=== PATIENT | male | born 1940 | race Caucasian/White ===

== ENCOUNTER 2020-04-04 19:33 | Inpatient (IN) | payer MEDICARE, OTHER ==
[~2020-04-04] VITALS: Ht 185.4 cm; Wt 67.0 kg
[~2020-04-04 19:33] MED LIST: BUDE10.2 IH; CETI10TA16 PO; DILT240C32 PO; HYDR-2761 PO; LEVO250T25 PO; LISI-130 PO; METR500T PO; PANT40TA77 PO; SERT100T8 PO; SUCR1TAB PO; TRAZ-118 PO
[2020-04-04 20:21] LABS: BASO # 0.1 x10^3/uL (0.0-0.2); BASO % 1 % (0-3); EOS % 0 % (0-3); HEMATOCRIT 38.2 % (39.0-53.0); HEMOGLOBIN 13.4 g/dL (13.0-17.5); LYMPH # 1.1 x10^3/uL (1.0-4.8); LYMPH % 11 % (24-48); MEAN CORPUSCULAR HEMOGLOBIN 31 pg (25-35); MEAN CORPUSCULAR HGB CONC 35 g/dL (31-37); MEAN CORPUSCULAR VOLUME 89 fL (79-100); MONO # 0.4 x10^3/uL (0.0-1.1); MONO % 4 % (0-9); NEUT # 8.5 x10^3/uL (1.8-7.7); NEUT % 85 % (31-73); PLATELET COUNT 212 x10^3/uL (140-400); RED BLOOD COUNT 4.28 x10^6/uL (4.30-5.70); RED CELL DISTRIBUTION WIDTH 16.2 % (11.5-14.5); WHITE BLOOD COUNT 10.1 x10^3/uL (4.0-11.0)
[2020-04-04 20:28] LABS: PROTHROMBIN TIME PATIENT 13.5 SEC (11.7-14.0)
[2020-04-04 20:29] LABS: CALCIUM 8.8 mg/dL (8.5-10.1); CREATININE 1.3 mg/dL (0.7-1.3); GFR 53.3; POTASSIUM 3.7 mmol/L (3.5-5.1)
[2020-04-04 20:35] LABS: ALBUMIN 3.5 g/dL (3.4-5.0); TOTAL BILIRUBIN 0.7 mg/dL (0.2-1.0); TOTAL PROTEIN 6.9 g/dL (6.4-8.2)
[2020-04-04] MEDS ORDERED: IOHEXOL 240 MG/ML 50ML VIAL. PO ONE (21:30)
[2020-04-04] MEDS ORDERED: CONTRAST GIVEN. MC PRN (21:30)
[2020-04-04] MEDS ORDERED: IOHEXOL 300 MG/ML 100ML VIAL. IV ONE (21:30)
--- NOTE | 2020-04-04 23:15 | RAD ---
Study: CT abdomen/pelvis with intravenous contrast Indication: Abdominal pain. Rectal bleeding. Comparison: 05/07/2016 Technique: Helical CT imaging performed of the abdomen and pelvis after the intravenous administration of 60 cc Omnipaque 300 contrast. Sagittal and coronal reformats were obtained. One or more of the following individualized dose reduction techniques were utilized for this examination: 1. Automated exposure control 2. Adjustment of the mA and/or kV according to patient size 3. Use of iterative reconstruction technique. Findings: Chest: Emphysema. Calcific coronary artery disease. Liver: A few subcentimeter hypoattenuating foci were not well seen on the comparison but the prior was performed without intravenous contrast. There is also a curvilinear low-attenuation focus at the hepatic dome. These findings are most likely benign in the absence of a known malignancy. Gallbladder/Biliary Tree: Surgically absent. Intrahepatic ductal prominence. The common bile duct caliber is within normal limits given absence of the gallbladder and tapers normally at the pancreatic head. Pancreas: No discrete mass or surrounding inflammatory changes. Spleen: Similar prominence of the spleen. Adrenal Glands: Hyperplastic/nodular configuration of the adrenal glands but unchanged. Kidneys/Ureters/Bladder: Several cystic foci bilaterally. No complex cyst or mass appreciated on this single phase study. The ureters are not well visualized. Poorly evaluated bladder due to streak artifact from a hip arthroplasty. Reproductive Organs: Similar prominence of the prostate. Colon: Portions of the distal colon are not well evaluated due to streak artifact. Diverticulosis mainly involving the sigmoid without convincing evidence for diverticulitis. There is wall thickening of the descending colon through the splenic flexure such as seen involving the descending colon on image 32 series 4. More proximally, gas and stool distention of the colon without wall thickening. Appendix: Not well visualized. Small Bowel: Individual loops of small bowel are not well evaluated due to close apposition and the lack of oral contrast. Segments are distended but there is no transition to collapsed to suggest obstruction. Stomach: No acute abnormality. Vasculature: Extensive calcified and noncalcified atheromatous plaque. No aneurysmal dilatation. The central portal veins and superior mesenteric veins are patent. Limited assessment for stenosis of the aortic branch vessel origins. Extensive iliofemoral system plaque presumably with some presumed regions of stenosis noting that the extent of plaque is similar to the 2016. Lymph Nodes: Within normal limits. Peritoneum and Body Wall: No large volume free fluid. No pneumoperitoneum. 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 No suspicious features and the size is only minimally larger from 2016. Bones: Osteopenia. No acute or aggressive osseous process. Total left hip arthroplasty construct is unremarkable. Grade 1 anterolisthesis of L5 on S1 in the setting of chronic bilateral pars defects. Miscellaneous: None. Impression: 1. Distal colonic diverticulosis without definitive findings of diverticulitis. There is mild wall thickening of the descending colon through the splenic flexure. It is possible that this represents a mild colitis but there are no overt surrounding inflammatory changes to confirm. No bowel obstruction. If there is ongoing rectal bleeding, a tagged red blood cell scan could be considered. 2. Several additional chronic findings as detailed in the body the report. Electronically signed by: MORENITA HUTCHINSON MD (04/04/2020 11:11 PM) [id number]
[2020-04-04 23:35] VITALS: BP 138/42
[2020-04-04] MEDS ORDERED: FLUT16SP NAS (23:55)
[2020-04-04] MEDS ORDERED: OMEP40CA45 PO (23:55)
[2020-04-04] MEDS ORDERED: LISI1TAB37 PO (23:57)
[2020-04-04] MEDS ORDERED: GABA100C6 PO (23:58)
[2020-04-05] MEDS: traZODone 100 MG TABLET. PO SCH ×2 (00:19→20:49)
--- NOTE | 2020-04-05 02:21 | PHYS DOC ---
Past Medical History Past Medical History: COPD, Hypertension Past Surgical History: Cholecystectomy, Hip Replacement Additional Past Surgical Histo: hernia repair x 2 Smoking Status: Current Every Day Smoker Alcohol Use: None Drug Use: None General Adult EDM: Chief Complaint: BLOODY STOOL HPI: HPI: Patient is a 79-year-old male who presents to the emergency room complaining of GI bleed. Patient states that yesterday he started feeling queasy and then had an episode of vomiting that was a mixture of food and bright red blood. Shortly after he had an episode of diarrhea that was mixed stool and bright red blood. He has since had 2 other bowel movements that have also included bright red blood. He was seen at [facility] yesterday where they recommended that he be admitted for evaluation. He declined admission at that time but saw his primary care doctor who sent him here to be admitted to be evaluated by a GI specialist. He has chronic shortness of breath that is unchanged. He denies any weakness. He denies any abdominal pain. Review of Systems: Review of Systems: General: Denies fever, chills, sweats, fatigue Eyes: Denies drainage, blurred vision, eye redness HENT: Denies rhinorrhea, sore throat, earache Respiratory: Denies cough, shortness of breath, wheezing Cardiac: Denies edema, palpitations, chest pain GI: Denies abdominal pain, Nausea, vomiting MSK: Denies back pain, neck pain Skin: Denies rash, jaundice Neuro: Denies headache, dizziness Psychiatric: Denies SI/HI Heart Score: Risk Factors: Risk Factors: DM, Current or recent (<one month) smoker, HTN, HLP, family history of CAD, obesity. Risk Scores: Score 0 - 3: 2.5% MACE over next 6 weeks - Discharge Home Score 4 - 6: 20.3% MACE over next 6 weeks - Admit for Clinical Observation Score 7 - 10: 72.7% MACE over next 6 weeks - Early Invasive Strategies Current Medications: Current Medications Medications (Trade) Dose Ordered Sig/Olman Start Time Stop Time Status Last Admin Dose Admin Info (CONTRAST GIVEN -- Rx MONITORING) 1 each PRN DAILY PRN 04/04/20 21:30 04/06/20 21:29 Iohexol (Omnipaque 240 Mg/ml) 50 ml 1X ONCE 04/04/20 21:30 04/04/20 21:31 DC Iohexol (Omnipaque 300 Mg/ml) 60 ml 1X ONCE 04/04/20 21:30 04/04/20 21:31 DC 04/04/20 22:24 60 ML Allergies: Allergies: Allergies Coded Allergies Type Severity Reaction Last Updated Verified No Known Drug Allergies 05/13/16 No Physical Exam: PE: General: Awake, alert, NAD. Well Nourished, well hydrated. Cooperative HEENT: Atraumatic, EOMI, PERRL, airway patent, moist oral mucosa Neck: Supple, trachea midline Respiratory: CTA bilaterally, normal effort, no wheezing/crackles CV: RRR, no murmur, cap refill <2 GI: Soft, nondistended, nontender, no masses MSK: No obvious deformities Skin: Warm, dry, intact Neuro: A&O x3, speech NL, sensory and motor grossly intact, no focal deficits Psych: Normal affect, normal mood, not suicidal or homicidal Current Patient Data: Labs: Laboratory Tests Test 04/04/20 20:00 White Blood Count 10.1 x10^3/uL (4.0-11.0) Red Blood Count 4.28 x10^6/uL (4.30-5.70) L Hemoglobin 13.4 g/dL (13.0-17.5) Hematocrit 38.2 % (39.0-53.0) L Mean Corpuscular Volume 89 fL (79-100) Mean Corpuscular Hemoglobin 31 pg (25-35) Mean Corpuscular Hemoglobin Concent 35 g/dL (31-37) Red Cell Distribution Width 16.2 % (11.5-14.5) H Platelet Count 212 x10^3/uL (140-400) Neutrophils (%) (Auto) 85 % (31-73) H Lymphocytes (%) (Auto) 11 % (24-48) L Monocytes (%) (Auto) 4 % (0-9) Eosinophils (%) (Auto) 0 % (0-3) Basophils (%) (Auto) 1 % (0-3) Neutrophils # (Auto) 8.5 x10^3/uL (1.8-7.7) H Lymphocytes # (Auto) 1.1 x10^3/uL (1.0-4.8) Monocytes # (Auto) 0.4 x10^3/uL (0.0-1.1) Eosinophils # (Auto) 0.0 x10^3/uL (0.0-0.7) Basophils # (Auto) 0.1 x10^3/uL (0.0-0.2) Prothrombin Time 13.5 SEC (11.7-14.0) Prothrombin Time INR 1.1 (0.8-1.1) Activated Partial Thromboplast Time 35 SEC (24-38) Sodium Level 139 mmol/L (136-145) Potassium Level 3.7 mmol/L (3.5-5.1) Chloride Level 105 mmol/L (98-107) Carbon Dioxide Level 28 mmol/L (21-32) Anion Gap 6 (6-14) Blood Urea Nitrogen 28 mg/dL (8-26) H Creatinine 1.3 mg/dL (0.7-1.3) Estimated GFR (Cockcroft-Gault) 53.3 BUN/Creatinine Ratio 22 (6-20) H Glucose Level 104 mg/dL (70-99) H Calcium Level 8.8 mg/dL (8.5-10.1) Total Bilirubin 0.7 mg/dL (0.2-1.0) Aspartate Amino Transferase (AST) 22 U/L (15-37) Alanine Aminotransferase (ALT) 18 U/L (16-63) Alkaline Phosphatase 76 U/L (46-116) Total Protein 6.9 g/dL (6.4-8.2) Albumin 3.5 g/dL (3.4-5.0) Albumin/Globulin Ratio 1.0 (1.0-1.7) Laboratory Tests 04/04/20 20:00 Laboratory Tests 04/04/20 20:00 Vital Signs: Vital Signs Date Time Temp Pulse Resp B/P (MAP) Pulse Ox O2 Delivery O2 Flow Rate FiO2 04/05/20 00:01 Room Air 04/04/20 23:35 97.1 56 21 138/42 (74) 94 97.1 EKG: EKG: [] Radiology/Procedures: Radiology/Procedures: [] Course & Med Decision Making: Course & Med Decision Making Pertinent Labs and Imaging studies reviewed. (See chart for details) Patient is 71-year-old male presents to the emergency room with hematemesis and hematochezia. Patient is stable at this time. He is not on any NSAIDs, aspirin. He does not drink alcohol. It is unclear at this time the cause of this bleed could be. Will admit him to the hospital for further evaluation of his GI bleed per the request of his primary care physician. Sania Disclaimer: Sania Disclaimer: This electronic medical record was generated, in whole or in part, using a voice recognition dictation system. Departure Departure Impression: Primary Impression: GI bleed Disposition: ADMITTED INPATIENT Condition: STABLE Referrals: MIMI MONSALVE MD (PCP) Justicifation of Admission Dx: Justifications for Admission: Justification of Admission Dx: Yes RADHA MEZA MD Apr 05, 2020 02:21
[2020-04-05 03:20] VITALS: BP 127/45
[2020-04-05 07:00] VITALS: BP 134/66
[2020-04-05] MEDS ORDERED: C.DIFF MED SCREEN BY RX. MC ONE (09:00)
[2020-04-05 11:16] VITALS: BP 132/51
--- NOTE | 2020-04-05 14:00 | PDOC2 ---
GI CONSULT Reason For Consult: hematemesis and rectal bleed HPI: HPI: 79-year-old male who presents to the emergency room complaining of GI bleed. Patient states that yesterday he started feeling queasy and then had an episode of vomiting that was a mixture of food and bright red blood. Shortly after he had an episode of diarrhea that was mixed stool and bright red blood. He has since had 2 other bowel movements that have also included bright red blood. He was seen at [facility] yesterday where they recommended that he be admitted for evaluation. He declined admission at that time but saw his primary care doctor who sent him here to be admitted to be evaluated by a GI specialist. He has chronic shortness of breath that is unchanged. He denies any weakness. He denies any abdominal pain. Hgb was 13.[address] A/P with Distal colonic diverticulosis without definitive findings of diverticulitis. There is mild wall thickening of the descending colon through the splenic flexure. It is possible that this represents a mild colitis but there are no overt surrounding inflammatory changes to confirm. No bowel obstruction. If there is ongoing rectal bleeding, a tagged red blood cell scan could be considered. Since he had hematemesis, he ahs eaten cereal, chips and a sandwich He reprots prior epsiodes of rectal bleeding and s had a negative FOBT with Dr Muñoz this year. He was placed on OMeproazole by Dr Muñoz for blood in his stool. He dnies NSAIDs and says thaty his last Tyelnol was 6 months ago. he has not had EtOH in 15 years PMH: PMH: Past Medical History Past Medical History: COPD, Hypertension Past Surgical History: Cholecystectomy, Hip Replacement, bile leak after álvaro s/pERCP with stent 04/2016 Additional Past Surgical Histo: hernia repair x 2 Smoking Status: Current Every Day Smoker Alcohol Use: None Drug Use: None FMH: neg CRC Meds: Symbicort Fluticasone Gabapentin Lisinopril/HCTZ O[place] 40 Sertraline FH: Family History: No pertinent hx Social History: Smoke: 1 pack per day ALCOHOL: none Drugs: None ROS: Review of Systems: Review of Systems: General: Denies fever, chills, sweats, fatigue Eyes: Denies drainage, blurred vision, eye redness HENT: Denies rhinorrhea, sore throat, earache Respiratory: Denies cough, shortness of breath, wheezing Cardiac: Denies edema, palpitations, chest pain GI: Denies abdominal pain, Nausea, vomiting MSK: Denies back pain, neck pain Skin: Denies rash, jaundice Neuro: Denies headache, dizziness Psychiatric: Denies SI/HI VItals: Vitals: Vital Signs Date Time Temp Pulse Resp B/P (MAP) Pulse Ox O2 Delivery O2 Flow Rate FiO2 04/05/20 11:16 97.8 55 18 132/51 (78) 90 Room Air 97.8 Labs: Labs: Laboratory Tests Test 04/04/20 20:00 White Blood Count 10.1 x10^3/uL (4.0-11.0) Red Blood Count 4.28 x10^6/uL (4.30-5.70) Hemoglobin 13.4 g/dL (13.0-17.5) Hematocrit 38.2 % (39.0-53.0) Mean Corpuscular Volume 89 fL (79-100) Mean Corpuscular Hemoglobin 31 pg (25-35) Mean Corpuscular Hemoglobin Concent 35 g/dL (31-37) Red Cell Distribution Width 16.2 % (11.5-14.5) Platelet Count 212 x10^3/uL (140-400) Neutrophils (%) (Auto) 85 % (31-73) Lymphocytes (%) (Auto) 11 % (24-48) Monocytes (%) (Auto) 4 % (0-9) Eosinophils (%) (Auto) 0 % (0-3) Basophils (%) (Auto) 1 % (0-3) Neutrophils # (Auto) 8.5 x10^3/uL (1.8-7.7) Lymphocytes # (Auto) 1.1 x10^3/uL (1.0-4.8) Monocytes # (Auto) 0.4 x10^3/uL (0.0-1.1) Eosinophils # (Auto) 0.0 x10^3/uL (0.0-0.7) Basophils # (Auto) 0.1 x10^3/uL (0.0-0.2) Prothrombin Time 13.5 SEC (11.7-14.0) Prothromb Time International Ratio 1.1 (0.8-1.1) Activated Partial Thromboplast Time 35 SEC (24-38) Sodium Level 139 mmol/L (136-145) Potassium Level 3.7 mmol/L (3.5-5.1) Chloride Level 105 mmol/L (98-107) Carbon Dioxide Level 28 mmol/L (21-32) Anion Gap 6 (6-14) Blood Urea Nitrogen 28 mg/dL (8-26) Creatinine 1.3 mg/dL (0.7-1.3) Estimated GFR (Cockcroft-Gault) 53.3 BUN/Creatinine Ratio 22 (6-20) Glucose Level 104 mg/dL (70-99) Calcium Level 8.8 mg/dL (8.5-10.1) Total Bilirubin 0.7 mg/dL (0.2-1.0) Aspartate Amino Transf (AST/SGOT) 22 U/L (15-37) Alanine Aminotransferase (ALT/SGPT) 18 U/L (16-63) Alkaline Phosphatase 76 U/L (46-116) Total Protein 6.9 g/dL (6.4-8.2) Albumin 3.5 g/dL (3.4-5.0) Albumin/Globulin Ratio 1.0 (1.0-1.7) Imaging: Imaging: Comparison: 05/07/2016 Technique: Helical CT imaging performed of the abdomen and pelvis after the intravenous administration of 60 cc Omnipaque 300 contrast. Sagittal and coronal reformats were obtained. One or more of the following individualized dose reduction techniques were utilized for this examination: 1. Automated exposure control 2. Adjustment of the mA and/or kV according to patient size 3. Use of iterative reconstruction technique. Findings: Chest: Emphysema. Calcific coronary artery disease. Liver: A few subcentimeter hypoattenuating foci were not well seen on the comparison but the prior was performed without intravenous contrast. There is also a curvilinear low-attenuation focus at the hepatic dome. These findings are most likely benign in the absence of a known malignancy. Gallbladder/Biliary Tree: Surgically absent. Intrahepatic ductal prominence. The common bile duct caliber is within normal limits given absence of the gallbladder and tapers normally at the pancreatic head. Pancreas: No discrete mass or surrounding inflammatory changes. Spleen: Similar prominence of the spleen. Adrenal Glands: Hyperplastic/nodular configuration of the adrenal glands but unchanged. Kidneys/Ureters/Bladder: Several cystic foci bilaterally. No complex cyst or mass appreciated on this single phase study. The ureters are not well visualized. Poorly evaluated bladder due to streak artifact from a hip arthroplasty. Reproductive Organs: Similar prominence of the prostate. Colon: Portions of the distal colon are not well evaluated due to streak artifact. Diverticulosis mainly involving the sigmoid without convincing evidence for diverticulitis. There is wall thickening of the descending colon through the splenic flexure such as seen involving the descending colon on image 32 series 4. More proximally, gas and stool distention of the colon without wall thickening. Appendix: Not well visualized. Small Bowel: Individual loops of small bowel are not well evaluated due to close apposition and the lack of oral contrast. Segments are distended but there is no transition to collapsed to suggest obstruction. Stomach: No acute abnormality. Vasculature: Extensive calcified and noncalcified atheromatous plaque. No aneurysmal dilatation. The central portal veins and superior mesenteric veins are patent. Limited assessment for stenosis of the aortic branch vessel origins. Extensive iliofemoral system plaque presumably with some presumed regions of stenosis noting that the extent of plaque is similar to the 2016. Lymph Nodes: Within normal limits. Peritoneum and Body Wall: No large volume free fluid. No pneumoperitoneum. 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 No suspicious features and the size is only minimally larger from 2016. Bones: Osteopenia. No acute or aggressive osseous process. Total left hip arthroplasty construct is unremarkable. Grade 1 anterolisthesis of L5 on S1 in the setting of chronic bilateral pars defects. Miscellaneous: None. Impression: 1. Distal colonic diverticulosis without definitive findings of diverticulitis. There is mild wall thickening of the descending colon through the splenic flexure. It is possible that this represents a mild colitis but there are no overt surrounding inflammatory changes to confirm. No bowel obstruction. If there is ongoing rectal bleeding, a tagged red blood cell scan could be considered. 2. Several additional chronic findings as detailed in the body the report. Electronically signed by: MORENITA HUTCHINSON MD (04/04/2020 11:11 PM) [id number] PE: Physical Exam: PE: General: Awake, alert, NAD. Well Nourished, well hydrated. Cooperative HEENT: Atraumatic, EOMI, PERRL, airway patent, moist oral mucosa Neck: Supple, trachea midline Respiratory: CTA bilaterally, normal effort, no wheezing/crackles CV: RRR, no murmur, cap refill <2 GI: Soft, nondistended, nontender, no masses MSK: No obvious deformities Skin: Warm, dry, intact Neuro: A&O x3, speech NL, sensory and motor grossly intact, no focal deficits Psych: Normal affect, normal mood, not suicidal or homicidal A/P: A/P: A) 1)Hematemesis 2) rectal bleed 3) Abnormal CT P) 1) Start PPI 2) Start CLD 3) Monitor Hgb 4) Favor EGD/Colon. If Hgb stable, can be done as outpatient. If Hgb drops, favor endoscopy during the week SAMANTHA NORWOOD MD Apr 05, 2020 14:00
--- NOTE | 2020-04-05 14:13 | PDOC1 ---
History and Physical Date of Admission Date of Admission 04/05/2020 Identification/Chief Complaint Chief Complaint I vomited blood and had blood in my stools Source Source: Chart review, Patient History of Present Illness History of Present Illness Patient is a 79-year-old gentleman with past medical history of COPD and hypertension who was in his usual state of health until approximately 2 days prior to his admission when apparently he resented a sensation of nausea over the epigastrium and subsequently ended up having several emetic episodes with a mixture of blood and gastric content that he describes as spaghetti sauce with hamburger meat. The patient also presented bright red blood per rectum and he describes the stool as quite runny. Patient denies any recent history of excessive alcohol intake no dietary transgressions and no excess NSAID use. Patient denies shortness of breath no palpitations no shortness of breath he denies loss of consciousness but during the emetic episodes and after having the bloody bowel movements patient felt lightheaded. He did not lose consciousness and he did not have abdominal pain associated with the rectal bleeding. Patient has not lost weight recently he does not remember when the last time he had colo noscopy was due to his history of COPD the only other complaint has been chronic cough and shortness of breath but this have not change in the usual pattern. Patient apparently was evaluated at [facility] and was presented with the option to be admitted to the hospital but he declined at that time. He consulted his primary care physician who advised him to come to the emergency department and be admitted for evaluation by GI. At the time of my evaluation patient is in no acute distress no new complaints have been offered by the patient he does refer feeling hungry plan of care has been explained in detail and I have answered and addressed all his concerns to the best of my abilities Past Medical History Cardiovascular: HTN Pulmonary: COPD Past Surgical History Past Surgical History: Cholecystectomy Family History Family History: No Significant, Hypertension Social History Smoke: 1 pack per day ALCOHOL: none Drugs: None Current Medications Current Medications Current Medications Medications (Trade) Dose Ordered Sig/Olman Start Time Stop Time Status Last Admin Dose Admin Info (CONTRAST GIVEN -- Rx MONITORING) 1 each PRN DAILY PRN 04/04/20 21:30 04/06/20 21:29 Iohexol (Omnipaque 240 Mg/ml) 50 ml 1X ONCE 04/04/20 21:30 04/04/20 21:31 DC Iohexol (Omnipaque 300 Mg/ml) 60 ml 1X ONCE 04/04/20 21:30 04/04/20 21:31 DC 04/04/20 22:24 60 ML Pantoprazole Sodium (Protonix) 40 mg DAILYAC 04/05/20 16:30 Pharmacy Consult ([facility] Med Screen By Rx) 1 each 1X ONCE 04/05/20 09:00 04/05/20 09:01 DC 04/05/20 09:00 1 EACH Trazodone HCl (Desyrel) 100 mg QHS 04/05/20 00:15 04/05/20 00:19 100 MG Allergies Allergies Allergies Coded Allergies Type Severity Reaction Last Updated Verified No Known Drug Allergies 05/13/16 No ROS Review of System CONSTITUTIONAL: No fever or chills EYES: No recent changes SKIN: No rash or itching CARDIOVASCULAR: No chest pain, syncope, palpitations, or edema RESPIRATORY: No SOB or cough GASTROINTESTINAL: No nausea, vomiting or abdominal pain NEUROLOGICAL: No headaches or weakness ENDOCRINE: No cold or heat intolerance GENITOURINARY: No urgency or frequency of urination MUSCULOSKELETAL: No back pain or joint pain LYMPHATICS: No enlarged lymph nodes PSYCHIATRIC: No anxiety or depression Physical Exam Physical Exam GEN.: No apparent distress. Alert and oriented. HEENT: Head is normocephalic, atraumatic NECK: Supple. LUNGS: Clear to auscultation. HEART: RRR, S1, S2 present. Peripheral pulses intact ABDOMEN: Soft, nontender. Positive bowel sounds. EXTREMITIES: Without any cyanosis. NEUROLOGIC: Normal speech, normal tone PSYCHIATRIC: Normal affect, normal mood. SKIN: No ulcerations Vitals Vitals Vital Signs Date Time Temp Pulse Resp B/P (MAP) Pulse Ox O2 Delivery O2 Flow Rate FiO2 04/05/20 11:16 97.8 55 18 132/51 (78) 90 Room Air 97.8 Labs Labs Laboratory Tests Test 04/04/20 20:00 White Blood Count 10.1 x10^3/uL (4.0-11.0) Red Blood Count 4.28 x10^6/uL (4.30-5.70) Hemoglobin 13.4 g/dL (13.0-17.5) Hematocrit 38.2 % (39.0-53.0) Mean Corpuscular Volume 89 fL (79-100) Mean Corpuscular Hemoglobin 31 pg (25-35) Mean Corpuscular Hemoglobin Concent 35 g/dL (31-37) Red Cell Distribution Width 16.2 % (11.5-14.5) Platelet Count 212 x10^3/uL (140-400) Neutrophils (%) (Auto) 85 % (31-73) Lymphocytes (%) (Auto) 11 % (24-48) Monocytes (%) (Auto) 4 % (0-9) Eosinophils (%) (Auto) 0 % (0-3) Basophils (%) (Auto) 1 % (0-3) Neutrophils # (Auto) 8.5 x10^3/uL (1.8-7.7) Lymphocytes # (Auto) 1.1 x10^3/uL (1.0-4.8) Monocytes # (Auto) 0.4 x10^3/uL (0.0-1.1) Eosinophils # (Auto) 0.0 x10^3/uL (0.0-0.7) Basophils # (Auto) 0.1 x10^3/uL (0.0-0.2) Prothrombin Time 13.5 SEC (11.7-14.0) Prothromb Time International Ratio 1.1 (0.8-1.1) Activated Partial Thromboplast Time 35 SEC (24-38) Sodium Level 139 mmol/L (136-145) Potassium Level 3.7 mmol/L (3.5-5.1) Chloride Level 105 mmol/L (98-107) Carbon Dioxide Level 28 mmol/L (21-32) Anion Gap 6 (6-14) Blood Urea Nitrogen 28 mg/dL (8-26) Creatinine 1.3 mg/dL (0.7-1.3) Estimated GFR (Cockcroft-Gault) 53.3 BUN/Creatinine Ratio 22 (6-20) Glucose Level 104 mg/dL (70-99) Calcium Level 8.8 mg/dL (8.5-10.1) Total Bilirubin 0.7 mg/dL (0.2-1.0) Aspartate Amino Transf (AST/SGOT) 22 U/L (15-37) Alanine Aminotransferase (ALT/SGPT) 18 U/L (16-63) Alkaline Phosphatase 76 U/L (46-116) Total Protein 6.9 g/dL (6.4-8.2) Albumin 3.5 g/dL (3.4-5.0) Albumin/Globulin Ratio 1.0 (1.0-1.7) Laboratory Tests Test 04/04/20 20:00 White Blood Count 10.1 x10^3/uL (4.0-11.0) Red Blood Count 4.28 x10^6/uL (4.30-5.70) Hemoglobin 13.4 g/dL (13.0-17.5) Hematocrit 38.2 % (39.0-53.0) Mean Corpuscular Volume 89 fL (79-100) Mean Corpuscular Hemoglobin 31 pg (25-35) Mean Corpuscular Hemoglobin Concent 35 g/dL (31-37) Red Cell Distribution Width 16.2 % (11.5-14.5) Platelet Count 212 x10^3/uL (140-400) Neutrophils (%) (Auto) 85 % (31-73) Lymphocytes (%) (Auto) 11 % (24-48) Monocytes (%) (Auto) 4 % (0-9) Eosinophils (%) (Auto) 0 % (0-3) Basophils (%) (Auto) 1 % (0-3) Neutrophils # (Auto) 8.5 x10^3/uL (1.8-7.7) Lymphocytes # (Auto) 1.1 x10^3/uL (1.0-4.8) Monocytes # (Auto) 0.4 x10^3/uL (0.0-1.1) Eosinophils # (Auto) 0.0 x10^3/uL (0.0-0.7) Basophils # (Auto) 0.1 x10^3/uL (0.0-0.2) Prothrombin Time 13.5 SEC (11.7-14.0) Prothromb Time International Ratio 1.1 (0.8-1.1) Activated Partial Thromboplast Time 35 SEC (24-38) Sodium Level 139 mmol/L (136-145) Potassium Level 3.7 mmol/L (3.5-5.1) Chloride Level 105 mmol/L (98-107) Carbon Dioxide Level 28 mmol/L (21-32) Anion Gap 6 (6-14) Blood Urea Nitrogen 28 mg/dL (8-26) Creatinine 1.3 mg/dL (0.7-1.3) Estimated GFR (Cockcroft-Gault) 53.3 BUN/Creatinine Ratio 22 (6-20) Glucose Level 104 mg/dL (70-99) Calcium Level 8.8 mg/dL (8.5-10.1) Total Bilirubin 0.7 mg/dL (0.2-1.0) Aspartate Amino Transf (AST/SGOT) 22 U/L (15-37) Alanine Aminotransferase (ALT/SGPT) 18 U/L (16-63) Alkaline Phosphatase 76 U/L (46-116) Total Protein 6.9 g/dL (6.4-8.2) Albumin 3.5 g/dL (3.4-5.0) Albumin/Globulin Ratio 1.0 (1.0-1.7) Images Images Imaging: Comparison: 05/07/2016 Technique: Helical CT imaging performed of the abdomen and pelvis after the intravenous administration of 60 cc Omnipaque 300 contrast. Sagittal and coronal reformats were obtained. One or more of the following individualized dose reduction techniques were utilized for this examination: 1. Automated exposure control 2. Adjustment of the mA and/or kV according to patient size 3. Use of iterative reconstruction technique. Findings: Chest: Emphysema. Calcific coronary artery disease. Liver: A few subcentimeter hypoattenuating foci were not well seen on the comparison but the prior was performed without intravenous contrast. There is also a curvilinear low-attenuation focus at the hepatic dome. These findings are most likely benign in the absence of a known malignancy. Gallbladder/Biliary Tree: Surgically absent. Intrahepatic ductal prominence. The common bile duct caliber is within normal limits given absence of the gallbladder and tapers normally at the pancreatic head. Pancreas: No discrete mass or surrounding inflammatory changes. Spleen: Similar prominence of the spleen. Adrenal Glands: Hyperplastic/nodular configuration of the adrenal glands but unchanged. Kidneys/Ureters/Bladder: Several cystic foci bilaterally. No complex cyst or mass appreciated on this single phase study. The ureters are not well visualized. Poorly evaluated bladder due to streak artifact from a hip arthroplasty. Reproductive Organs: Similar prominence of the prostate. Colon: Portions of the distal colon are not well evaluated due to streak artifact. Diverticulosis mainly involving the sigmoid without convincing evidence for diverticulitis. There is wall thickening of the descending colon through the splenic flexure such as seen involving the descending colon on image 32 series 4. More proximally, gas and stool distention of the colon without wall thickening. Appendix: Not well visualized. Small Bowel: Individual loops of small bowel are not well evaluated due to close apposition and the lack of oral contrast. Segments are distended but there is no transition to collapsed to suggest obstruction. Stomach: No acute abnormality. Vasculature: Extensive calcified and noncalcified atheromatous plaque. No aneurysmal dilatation. The central portal veins and superior mesenteric veins are patent. Limited assessment for stenosis of the aortic branch vessel origins. Extensive iliofemoral system plaque presumably with some presumed regions of stenosis noting that the extent of plaque is similar to the 2016. Lymph Nodes: Within normal limits. Peritoneum and Body Wall: No large volume free fluid. No pneumoperitoneum. 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 No suspicious features and the size is only minimally larger from 2016. Bones: Osteopenia. No acute or aggressive osseous process. Total left hip arthroplasty construct is unremarkable. Grade 1 anterolisthesis of L5 on S1 in the setting of chronic bilateral pars defects. Miscellaneous: None. Impression: 1. Distal colonic diverticulosis without definitive findings of diverticulitis. There is mild wall thickening of the descending colon through the splenic flexure. It is possible that this represents a mild colitis but there are no overt surrounding inflammatory changes to confirm. No bowel obstruction. If there is ongoing rectal bleeding, a tagged red blood cell scan could be considered. 2. Several additional chronic findings as detailed in the body the report. Electronically signed by: MORENITA HUTCHINSON MD (04/04/2020 11:11 PM) [id number] VTE Prophylaxis Ordered VTE Prophylaxis Devices: Yes VTE Pharmacological Prophylaxi: Yes Assessment/Plan Assessment/Plan Hematemesis Painless rectal bleeding most likely diverticular disease Abnormal CT scan for details please see above Essential hypertension COPD History of tobacco abuse Plan: Keep n.p.o. Awaiting for GI evaluation PPI We will resume home medications once resumed oral route Further recommendations based on clinical course We will repeat labs in the a.m. DVT prophylaxis with SCDs JACI HENSON MD Apr 05, 2020 14:13
[2020-04-05 15:00] VITALS: BP 134/60
[2020-04-05] MEDS: ALBUTEROL SULFATE 2.5 MG/3 ML NEBU. NEB SCH ×2 (15:45→20:23)
[2020-04-05] MEDS: PANTOPRAZOLE 40 MG TABLET.DR. PO SCH (16:47)
[2020-04-05 19:46] VITALS: BP 132/60
[2020-04-05] MEDS: BUDESONIDE 0.5 MG/2 ML NEBU. NEB SCH (20:22)
[2020-04-05] MEDS ORDERED: NON FORMULARY ITEM (Budesonide/Formoterol Fumarate (Symbicort 160-4.5 Mcg Inhaler) 2 PUFF) IH SCH (21:00)
[2020-04-05 22:57] VITALS: BP 136/60
[2020-04-06 03:23] VITALS: BP 155/69
[2020-04-06 04:30] LABS: BASO % 1 % (0-3); EOS % 1 % (0-3); HEMATOCRIT 34.6 % (39.0-53.0); HEMOGLOBIN 12.2 g/dL (13.0-17.5); LYMPH % 17 % (24-48); MEAN CORPUSCULAR HEMOGLOBIN 31 pg (25-35); MEAN CORPUSCULAR HGB CONC 35 g/dL (31-37); MEAN CORPUSCULAR VOLUME 89 fL (79-100); MONO # 0.3 x10^3/uL (0.0-1.1); MONO % 5 % (0-9); NEUT # 4.4 x10^3/uL (1.8-7.7); NEUT % 76 % (31-73); PLATELET COUNT 166 x10^3/uL (140-400); RED CELL DISTRIBUTION WIDTH 16.3 % (11.5-14.5); WHITE BLOOD COUNT 5.7 x10^3/uL (4.0-11.0)
[2020-04-06 04:48] LABS: ALBUMIN 2.8 g/dL (3.4-5.0); ALBUMIN/GLOBULIN RATIO 0.9 (1.0-1.7); CALCIUM 8.1 mg/dL (8.5-10.1); CREATININE 1.2 mg/dL (0.7-1.3); GFR 58.4; TOTAL BILIRUBIN 0.5 mg/dL (0.2-1.0); TOTAL PROTEIN 5.8 g/dL (6.4-8.2)
[2020-04-06 07:00] VITALS: BP 148/67
[2020-04-06] MEDS: BUDESONIDE 0.5 MG/2 ML NEBU. NEB SCH (07:40)
[2020-04-06] MEDS: ALBUTEROL SULFATE 2.5 MG/3 ML NEBU. NEB SCH ×3 (07:40→15:45)
[2020-04-06] MEDS: PANTOPRAZOLE 40 MG TABLET.DR. PO SCH (08:03)
[2020-04-06] MEDS ORDERED: FLUTICASONE 50MCG/NASAL SPRAY 16GM BOTTLE. NS SCH (09:00)
[2020-04-06] MEDS ORDERED: NON FORMULARY ITEM (Omeprazole 40 MG) PO SCH (09:00)
[2020-04-06] MEDS ORDERED: GABAPENTIN 100 MG CAPSULE. PO SCH (09:00)
[2020-04-06] MEDS ORDERED: LISINOPRIL 20 MG TABLET PO SCH (09:00)
[2020-04-06] MEDS ORDERED: hydroCHLOROthiazide 12.5 MG CAPSULE PO SCH (09:00)
[2020-04-06] MEDS ORDERED: SERTRALINE 50 MG TABLET. PO SCH (09:00)
[2020-04-06 11:21] VITALS: BP 121/59
[2020-04-06] MEDS: POTASSIUM CHLORIDE 20 MEQ TABLET.ER. PO SCH ×2 (13:14→15:15)
--- NOTE | 2020-04-06 13:26 | PDOC ---
Date of Service: DATE: 04/06/20 TIME: 13:23 Subjective: Subjective: Hgb down to 12.2. No further emesis. 2 BMs, one was dark Objective: Vital Signs: Vital Signs Date Time Temp Pulse Resp B/P (MAP) Pulse Ox O2 Delivery O2 Flow Rate FiO2 04/06/20 11:49 Room Air 04/06/20 11:21 98.2 51 18 121/59 (79) 92 98.2 Labs: Laboratory Tests Test 04/06/20 04:15 White Blood Count 5.7 x10^3/uL (4.0-11.0) Red Blood Count 3.90 x10^6/uL (4.30-5.70) Hemoglobin 12.2 g/dL (13.0-17.5) Hematocrit 34.6 % (39.0-53.0) Mean Corpuscular Volume 89 fL (79-100) Mean Corpuscular Hemoglobin 31 pg (25-35) Mean Corpuscular Hemoglobin Concent 35 g/dL (31-37) Red Cell Distribution Width 16.3 % (11.5-14.5) Platelet Count 166 x10^3/uL (140-400) Neutrophils (%) (Auto) 76 % (31-73) Lymphocytes (%) (Auto) 17 % (24-48) Monocytes (%) (Auto) 5 % (0-9) Eosinophils (%) (Auto) 1 % (0-3) Basophils (%) (Auto) 1 % (0-3) Neutrophils # (Auto) 4.4 x10^3/uL (1.8-7.7) Lymphocytes # (Auto) 1.0 x10^3/uL (1.0-4.8) Monocytes # (Auto) 0.3 x10^3/uL (0.0-1.1) Eosinophils # (Auto) 0.0 x10^3/uL (0.0-0.7) Basophils # (Auto) 0.0 x10^3/uL (0.0-0.2) Sodium Level 141 mmol/L (136-145) Potassium Level 3.0 mmol/L (3.5-5.1) Chloride Level 105 mmol/L (98-107) Carbon Dioxide Level 29 mmol/L (21-32) Anion Gap 7 (6-14) Blood Urea Nitrogen 22 mg/dL (8-26) Creatinine 1.2 mg/dL (0.7-1.3) Estimated GFR (Cockcroft-Gault) 58.4 BUN/Creatinine Ratio 18 (6-20) Glucose Level 96 mg/dL (70-99) Calcium Level 8.1 mg/dL (8.5-10.1) Total Bilirubin 0.5 mg/dL (0.2-1.0) Aspartate Amino Transf (AST/SGOT) 16 U/L (15-37) Alanine Aminotransferase (ALT/SGPT) 14 U/L (16-63) Alkaline Phosphatase 66 U/L (46-116) Total Protein 5.8 g/dL (6.4-8.2) Albumin 2.8 g/dL (3.4-5.0) Albumin/Globulin Ratio 0.9 (1.0-1.7) Physical Exam: Physical Exam: PE: General: Awake, alert, NAD. Well Nourished, well hydrated. Cooperative HEENT: Atraumatic, EOMI, PERRL, airway patent, moist oral mucosa Neck: Supple, trachea midline Respiratory: CTA bilaterally, normal effort, no wheezing/crackles CV: RRR, no murmur, cap refill <2 GI: Soft, nondistended, nontender, no masses MSK: No obvious deformities Skin: Warm, dry, intact Neuro: A&O x3, speech NL, sensory and motor grossly intact, no focal deficits Psych: Normal affect, normal mood, not suicidal or homicidal Assessment & Plan: Assessment : A/P: A/P: A) 1)Hematemesis 2) rectal bleed 3) Abnormal CT Plan: P) 1) Start PPI 2) ADAT 3) Monitor Hgb 4) Okay to d/c today. he recalls a colonoscopy with dr krueger at [facility] 5 years ago. he had a polyp removed. He promised that he will come in for an outpatient EGD/Colon if he can be discharged today. Okay to d/c on PPI. He may followup with Didi Garcia or Richard or me or Dr Krueger 5) Potassium was replaced today. follow with primary Justicifation of Admission Dx: Justifications for Admission: Justification of Admission Dx: Yes SAMANTHA NORWOOD MD Apr 06, 2020 13:26
[2020-04-06] MEDS ORDERED: PANT40TA77 PO (15:05)
[2020-04-06 15:07] VITALS: BP 114/44
--- NOTE | 2020-04-06 15:10 | PDOC3 ---
Discharge Summary Visit Information Date of Admission: Apr 05, 2020 Date of Discharge: Apr 06, 2020 Admitting Diagnosis Comment: Hematemesis Painless rectal bleeding most likely diverticular disease Abnormal CT scan for details please see above Essential hypertension COPD History of tobacco abuse Final Diagnosis Hematemesis Painless rectal bleeding most likely diverticular disease Abnormal CT scan for details please see above Essential hypertension COPD History of tobacco abuse Brief Hospital Course Allergies Allergies Coded Allergies Type Severity Reaction Last Updated Verified No Known Drug Allergies 05/13/16 No Vital Signs Vital Signs Date Time Temp Pulse Resp B/P (MAP) Pulse Ox O2 Delivery O2 Flow Rate FiO2 04/06/20 11:49 Room Air 04/06/20 11:21 98.2 51 18 121/59 (79) 92 98.2 Lab Results Laboratory Tests Test 04/04/20 20:00 04/06/20 04:15 White Blood Count 10.1 x10^3/uL (4.0-11.0) 5.7 x10^3/uL (4.0-11.0) Red Blood Count 4.28 x10^6/uL (4.30-5.70) 3.90 x10^6/uL (4.30-5.70) Hemoglobin 13.4 g/dL (13.0-17.5) 12.2 g/dL (13.0-17.5) Hematocrit 38.2 % (39.0-53.0) 34.6 % (39.0-53.0) Mean Corpuscular Volume 89 fL (79-100) 89 fL (79-100) Mean Corpuscular Hemoglobin 31 pg (25-35) 31 pg (25-35) Mean Corpuscular Hemoglobin Concent 35 g/dL (31-37) 35 g/dL (31-37) Red Cell Distribution Width 16.2 % (11.5-14.5) 16.3 % (11.5-14.5) Platelet Count 212 x10^3/uL (140-400) 166 x10^3/uL (140-400) Neutrophils (%) (Auto) 85 % (31-73) 76 % (31-73) Lymphocytes (%) (Auto) 11 % (24-48) 17 % (24-48) Monocytes (%) (Auto) 4 % (0-9) 5 % (0-9) Eosinophils (%) (Auto) 0 % (0-3) 1 % (0-3) Basophils (%) (Auto) 1 % (0-3) 1 % (0-3) Neutrophils # (Auto) 8.5 x10^3/uL (1.8-7.7) 4.4 x10^3/uL (1.8-7.7) Lymphocytes # (Auto) 1.1 x10^3/uL (1.0-4.8) 1.0 x10^3/uL (1.0-4.8) Monocytes # (Auto) 0.4 x10^3/uL (0.0-1.1) 0.3 x10^3/uL (0.0-1.1) Eosinophils # (Auto) 0.0 x10^3/uL (0.0-0.7) 0.0 x10^3/uL (0.0-0.7) Basophils # (Auto) 0.1 x10^3/uL (0.0-0.2) 0.0 x10^3/uL (0.0-0.2) Prothrombin Time 13.5 SEC (11.7-14.0) Prothromb Time International Ratio 1.1 (0.8-1.1) Activated Partial Thromboplast Time 35 SEC (24-38) Sodium Level 139 mmol/L (136-145) 141 mmol/L (136-145) Potassium Level 3.7 mmol/L (3.5-5.1) 3.0 mmol/L (3.5-5.1) Chloride Level 105 mmol/L (98-107) 105 mmol/L (98-107) Carbon Dioxide Level 28 mmol/L (21-32) 29 mmol/L (21-32) Anion Gap 6 (6-14) 7 (6-14) Blood Urea Nitrogen 28 mg/dL (8-26) 22 mg/dL (8-26) Creatinine 1.3 mg/dL (0.7-1.3) 1.2 mg/dL (0.7-1.3) Estimated GFR (Cockcroft-Gault) 53.3 58.4 BUN/Creatinine Ratio 22 (6-20) 18 (6-20) Glucose Level 104 mg/dL (70-99) 96 mg/dL (70-99) Calcium Level 8.8 mg/dL (8.5-10.1) 8.1 mg/dL (8.5-10.1) Total Bilirubin 0.7 mg/dL (0.2-1.0) 0.5 mg/dL (0.2-1.0) Aspartate Amino Transf (AST/SGOT) 22 U/L (15-37) 16 U/L (15-37) Alanine Aminotransferase (ALT/SGPT) 18 U/L (16-63) 14 U/L (16-63) Alkaline Phosphatase 76 U/L (46-116) 66 U/L (46-116) Total Protein 6.9 g/dL (6.4-8.2) 5.8 g/dL (6.4-8.2) Albumin 3.5 g/dL (3.4-5.0) 2.8 g/dL (3.4-5.0) Albumin/Globulin Ratio 1.0 (1.0-1.7) 0.9 (1.0-1.7) Laboratory Tests Test 04/06/20 04:15 White Blood Count 5.7 x10^3/uL (4.0-11.0) Red Blood Count 3.90 x10^6/uL (4.30-5.70) Hemoglobin 12.2 g/dL (13.0-17.5) Hematocrit 34.6 % (39.0-53.0) Mean Corpuscular Volume 89 fL (79-100) Mean Corpuscular Hemoglobin 31 pg (25-35) Mean Corpuscular Hemoglobin Concent 35 g/dL (31-37) Red Cell Distribution Width 16.3 % (11.5-14.5) Platelet Count 166 x10^3/uL (140-400) Neutrophils (%) (Auto) 76 % (31-73) Lymphocytes (%) (Auto) 17 % (24-48) Monocytes (%) (Auto) 5 % (0-9) Eosinophils (%) (Auto) 1 % (0-3) Basophils (%) (Auto) 1 % (0-3) Neutrophils # (Auto) 4.4 x10^3/uL (1.8-7.7) Lymphocytes # (Auto) 1.0 x10^3/uL (1.0-4.8) Monocytes # (Auto) 0.3 x10^3/uL (0.0-1.1) Eosinophils # (Auto) 0.0 x10^3/uL (0.0-0.7) Basophils # (Auto) 0.0 x10^3/uL (0.0-0.2) Sodium Level 141 mmol/L (136-145) Potassium Level 3.0 mmol/L (3.5-5.1) Chloride Level 105 mmol/L (98-107) Carbon Dioxide Level 29 mmol/L (21-32) Anion Gap 7 (6-14) Blood Urea Nitrogen 22 mg/dL (8-26) Creatinine 1.2 mg/dL (0.7-1.3) Estimated GFR (Cockcroft-Gault) 58.4 BUN/Creatinine Ratio 18 (6-20) Glucose Level 96 mg/dL (70-99) Calcium Level 8.1 mg/dL (8.5-10.1) Total Bilirubin 0.5 mg/dL (0.2-1.0) Aspartate Amino Transf (AST/SGOT) 16 U/L (15-37) Alanine Aminotransferase (ALT/SGPT) 14 U/L (16-63) Alkaline Phosphatase 66 U/L (46-116) Total Protein 5.8 g/dL (6.4-8.2) Albumin 2.8 g/dL (3.4-5.0) Albumin/Globulin Ratio 0.9 (1.0-1.7) Brief Hospital Course Mr. Dumont is a 79 old male who presented with the above mentioned GI bleeding, the patient did not present further bleeding while inpatient he ramined hemodynamically stable and did not have pain or any other symptoms of concern, he was seen in consultation by GI and given the resolution of his symptoms, he was deemed appropriate for discharge on todays date, their recommendations were greatly appreciated. Recommendations as follow: 1) Start PPI 2) ADAT 3) Monitor Hgb 4) Okay to d/c today. he recalls a colonoscopy with dr krueger at [facility] years ago. he had a polyp removed. He promised that he will come in for an outpatient EGD/Colon if he can be discharged today. Okay to d/c on PPI. He may followup with Didi Garcia or Richard or de or Dr Krueger 5) Potassium was replaced today. follow with primary PPI will be sent electronically to his pharmacy Lungs clear to auscultation CVS s1s2 rr no murmurs Discharge Information Condition at Discharge: Improved Follow Up: Weeks Disposition/Orders: D/C to Home Scheduled Budesonide/Formoterol Fumarate (Symbicort 160-4.5 Mcg Inhaler) 10.2 Gm Hfa.aer.ad, 2 PUFF IH BID, #10.6 Ref 3 (Reported) Entered as Reported by: VINH OLIVA on 04/16/161 Last Action: Converted on 04/05/201414 by JACI HENSON MD Fluticasone Propionate (Fluticasone Propionate Nasal Oxford) 16 Gm Oxford.susp, 1 SPRAY BAL DAILY for allergies, (Reported) Entered as Reported by: BLAINE THOMPSON RN on 04/04/202354 Last Action: Continued on 04/05/201414 by JACI HENSON MD Gabapentin (Gabapentin) 100 Mg Capsule, 100 MG PO DAILY for pain medication , (Reported) Entered as Reported by: BLAINE THOMPSON RN on 04/04/202357 Last Action: Continued on 04/05/201414 by JACI HENSON MD Lisinopril/Hydrochlorothiazide (Lisinopril-Hctz 20-12.5 Mg Tab) 1 Each Tablet, 1 TAB PO DAILY for high blood pressure , (Reported) Entered as Reported by: BLAINE THOMPSON RN on 04/04/202356 Last Action: Converted on 04/05/201414 by JACI HENSON MD Pantoprazole Sodium (Pantoprazole Sodium ) 40 Mg Tablet., 40 MG PO DAILYAC for PUD for 30 Days, #30 Prescribed by: JACI HENSON MD on 04/06/20 1505 Sertraline Hcl (Sertraline Hcl) 100 Mg Tablet, 1.5 TAB PO DAILY for [id number], Ref 0 (Reported) Entered as Reported by: AMANDA NG on 04/18/16 1527 Last Action: Converted on 04/05/201414 by JACI HENSON MD Discontinued Medications Omeprazole (Omeprazole) 40 Mg Capsule., 40 MG PO DAILY for acid relfux , (Reported) Entered as Reported by: BLAINE THOMPSON RN on 04/04/202354 Last Action: Converted on 04/05/20 1415 by JACI HENSON MD Justicifation of Admission Dx: Justifications for Admission: Justification of Admission Dx: Yes JACI HENSON MD Apr 06, 2020 15:10
--- NOTE | 2020-04-06 16:33 | NUR ---
Discharge Note: DANELLE HUNTER [address] [place] [address] Discharge instructions and discharge home medications reviewed with Patient and a copy given. All questions have been answered and understanding verbalized. The following instructions and handouts were given: Diverticulosis, EGD, colonoscopy Discontinued IV lines Patient discharged to home with self care via private vehicle
== END 2020-04-06 16:00 | disposition home or self-care (01) | DRG 379 ==
LOC: ER 19:33 → 2 NORTH 22:25
PROVIDERS: ADMIT Internal Medicine; ATTEND Internal Medicine
DX: K57.31 Diverticulosis of large intestine without perforation or abscess with bleeding (principal); Z82.49 Family history of ischemic heart disease and other diseases of the circulatory system; Z96.649 Presence of unspecified artificial hip joint; J44.9 Chronic obstructive pulmonary disease, unspecified; I10 Essential (primary) hypertension; F17.210 Nicotine dependence, cigarettes, uncomplicated
CPT/HCPCS: 36415; 74177; 80053; 85025; 85610; 85730; 94640; 99285; Q9967; G0378; J7613; J7626

== ENCOUNTER → 2020-06-06 | Day surgery (SDC) | payer MEDICARE, OTHER ==
[~2020-06-06] MED LIST changes: +CELE200C PO; +FLUT16SP NAS; +GABA100C6 PO; +IV RINGERS,LACTATED 1000ML 1,000 ML IV SCH; +LISI1TAB37 PO; +OMEP40CA45 PO; +PROPOFOL 10 MG/ML (20ML) VIAL. IV ONE; +TRAZ-123 PO
--- NOTE | 2020-06-06 09:27 | CONS ---
DATE OF CONSULTATION: 06/06/2020 REFERRING PHYSICIAN: Dr. Oneil Tyson. REASON FOR CONSULTATION: Hematochezia and hematemesis. HISTORY OF PRESENT ILLNESS: A 79-year-old male who has past medical history significant for hypertension, gastroesophageal reflux disease, bile leak, status post cholecystectomy several years back as well as hip replacement and hernia repair, seen with the above bleeding. Weight and appetite have been stable. He did lose 25 pounds since his gallbladder surgery. He has had colon polyps in the past. He has been on the omeprazole 40 mg daily for 2 months without improvement in his symptoms and he therefore is here for further evaluation and care. PAST MEDICAL HISTORY: Significant for Hypertension, GERD, and weight loss. ALLERGIES: None. MEDICATIONS: Include budesonide, Celebrex, Flonase, lisinopril, pantoprazole, sertraline and trazodone. PAST SURGICAL HISTORY: Status post hip replacement and cholecystectomy. SOCIAL HISTORY: He is a smoker, nondrinker. REVIEW OF SYSTEMS: Per above. PHYSICAL EXAMINATION: GENERAL: Reveals a well-nourished male who is alert, cooperative, in no acute distress. VITAL SIGNS: Temperature is 99, pulse 76, respiratory rate is 20, and pulse oximetry 97%. LUNGS: Reveal decreased breath sounds. CARDIOVASCULAR: S1, S2 without S3, S4 or appreciable murmur. ABDOMEN: Reveals a soft abdomen, normal bowel sounds without appreciable hepatosplenomegaly. IMPRESSION AND RECOMMENDATIONS: 1. Hematemesis with the NSAID use, peptic ulcer disease, Joanna-Reyes tear, malignancy, varices in the differential. Recommend EGD. 2. The rectal bleeding with history of colonic polyps. Differential includes inflammatory bowel disease, hemorrhoids, ischemic colitis, diverticular disease, recurrent colon polyps and/or colon cancer. Risks and benefits of procedures have been discussed with the patient and is willing to proceed at this time. PRADPI QUEEN MD DR: ABIGAIL/marcella JOB#: [id number] / [id number]
[2020-06-06 10:09] VITALS: BP 145/56
--- NOTE | 2020-06-09 18:08 | PATHOLOGY ---
[facility] Accession Number: [id number] . 01 Material submitted: . rectum - RECTAL POLYPS . 01 Clinical history: . BLOOD IN STOOL . 02 Diagnosis: Colorectal biopsies, rectal polyps: - Hyperplastic polyps. ([facility]; 06/09/2020) [facility] [place] 06/09/2020 1521 Local . 02 Comment: There are no adenomatous changes or evidence of malignancy. (JPM:ping; 06/09/2020) . 02 Electronically signed: . Praveen Poole MD, Pathologist NPI- [id number] . 01 Gross description: . Received in formalin labeled "Julia, Max, rectal polyps" are two kyle-brown soft tissue fragments measuring in aggregate 0.5 x 0.3 x 0.1 cm. The specimen is submitted entirely in A1. ([facility] [place]; 06/07/2020) [facility] 06/09/2020 1521 Local . 02 Pathologist provided ICD-10: K62.1 . 02 CPT . 974305 Specimen Comment: A courtesy copy of this report has been sent to [phone], [phone] Specimen Comment: [id number] Specimen Comment: Report sent to / DR MONSALVE Performed at: 01 [facility] [address], [place] [id number] MD Clarence Iglesias MD Phone: [phone] Performed at: 02 [facility] [address] [place], [place] [id number] MD Praveen Poole MD Phone: [phone]
== END ==
LOC: SURG 07:17
PROVIDERS: ATTEND Internal Medicine Gastroenterology
DX: K62.1 Rectal polyp (principal); K21.9 Gastro-esophageal reflux disease without esophagitis; I10 Essential (primary) hypertension; K22.6 Gastro-esophageal laceration-hemorrhage syndrome; K64.0 First degree hemorrhoids; K55.8 Other vascular disorders of intestine; K29.50 Unspecified chronic gastritis without bleeding; K57.30 Diverticulosis of large intestine without perforation or abscess without bleeding; F17.210 Nicotine dependence, cigarettes, uncomplicated; Z86.010 Personal history of colon polyps; Z90.49 Acquired absence of other specified parts of digestive tract; Z79.899 Other long term (current) drug therapy
CPT/HCPCS: 43235; 45380; J2704

== ENCOUNTER 2021-09-28 16:21 | Inpatient (IN) | payer MEDICARE, OTHER ==
[~2021-09-28] VITALS: Ht 190.5 cm; Wt 66.1 kg
[2021-09-28] VITALS (14 sets, daily range): BP systolic 62–121; BP diastolic 29–52
[~2021-09-28 16:21] MED LIST changes: -IV RINGERS,LACTATED 1000ML 1,000 ML IV SCH; -OMEP40CA45 PO; +OMEP40CA7 PO; -PROPOFOL 10 MG/ML (20ML) VIAL. IV ONE; +SERT-268 PO; -SERT100T8 PO
--- NOTE | 2021-09-28 16:24 | PHYS DOC ---
Past Medical History Past Medical History: COPD, Hypertension Past Surgical History: Cholecystectomy, Hip Replacement Additional Past Surgical Histo: hernia repair x 2 Smoking Status: Current Every Day Smoker Alcohol Use: None Drug Use: None Adult General Chief Complaint Chief Complaint: NAUSEA/VOMITING/[facility] HPI Patient is a 81 year old male who presents with abdominal pain, nausea, vomiting and GI bleeding. Patient states he has been having worsening nausea an d stabbing type abdominal pain that is diffuse. He reports at least one episode of bloody stool earlier today. Patient has history of peripheral artery disease I did recently undergo an femoral stent placement. He does complain also of pain in the left foot due to known PAD. Patient reports he has pending additional therapy or stenting scheduled for next week. Today, he complains of abdominal pain and lower GI bleeding. Denies fever. No chest pain or shortness of breath. Review of Systems Review of Systems Constitutional: Denies fever or chills Eyes: Denies change in visual acuity HENT: Denies Respiratory: Denies Cardiovascular: No additional information not addressed in HPI GI: Abdominal pain, GI bleeding, refer to HPI Musculoskeletal: Denies back pain or joint pain Integument: Denies rash or skin lesions Neurologic: Denies Endocrine: Denies All other systems were reviewed and found to be within normal limits, except as documented in this note. Current Medications Current Medications Current Medications Medications (Trade) Dose Ordered Sig/[facility] Start Time Stop Time Status Last Admin Dose Admin Fentanyl Citrate (Fentanyl 2ml Vial) 75 mcg 1X ONCE 09/28/21 17:45 09/28/21 17:46 DC 09/28/21 17:51 75 MCG Ondansetron HCl (Zofran) 4 mg 1X ONCE 09/28/21 18:00 09/28/21 18:01 DC Sodium Chloride 1,000 ml @ 1,000 mls/hr 1X ONCE 09/28/21 17:00 09/28/21 17:59 DC 09/28/21 16:59 1,000 MLS/HR Allergies Allergies Allergies Coded Allergies Type Severity Reaction Last Updated Verified No Known Drug Allergies 09/28/21 No Physical Exam Physical Exam Constitutional: Well developed, well nourished, no acute distress, non-toxic appearance HENT: Normocephalic, atraumatic, bilateral external ears normal Eyes: PERRLA, EOMI Neck: Normal range of motion Cardiovascular:Heart rate regular rhythm Lungs & Thorax: Bilateral breath sounds clear to auscultation Abdomen: Abdomen is soft, very tender to palpate unguarded Skin: Warm, dry, no erythema, no rash. Back: No tenderness Extremities: No tenderness Neurologic: Alert and oriented X 3, normal motor function, normal Psychologic: Affect normal Current Patient Data Vital Signs Vital Signs Date Time Temp Pulse Resp B/P (MAP) Pulse Ox O2 Delivery O2 Flow Rate FiO2 09/28/21 17:51 18 96 Nasal Cannula 09/28/21 16:24 97.7 73 102/46 (64) 97.7 Lab Values Laboratory Tests Test 09/28/21 16:45 Sodium Level 141 mmol/L (136-145) Potassium Level 5.6 mmol/L (3.5-5.1) H Chloride Level 105 mmol/L (98-107) Carbon Dioxide Level 17 mmol/L (21-32) L Anion Gap 19 (6-14) H Blood Urea Nitrogen 103 mg/dL (8-26) H Creatinine 3.0 mg/dL (0.7-1.3) H Estimated GFR (Cockcroft-Gault) 20.2 BUN/Creatinine Ratio 34 (6-20) H Glucose Level 92 mg/dL (70-99) Lactic Acid Level 8.5 mmol/L (0.4-2.0) *H Calcium Level 7.8 mg/dL (8.5-10.1) L Total Bilirubin 0.4 mg/dL (0.2-1.0) Aspartate Amino Transferase (AST) 63 U/L (15-37) H Alanine Aminotransferase (ALT) 38 U/L (16-63) Alkaline Phosphatase 82 U/L (46-116) Troponin I High Sensitivity 159 ng/L (4-75) H DT-Oyp-S-Type Natriuretic Peptide 1994 pg/mL (0-449) H Total Protein 5.7 g/dL (6.4-8.2) L Albumin 2.5 g/dL (3.4-5.0) L Albumin/Globulin Ratio 0.8 (1.0-1.7) L Laboratory Tests 09/28/21 16:45 EKG EKG [] Radiology/Procedures Radiology/Procedures [] Course & Med Decision Making Course & Med Decision Making Pertinent Labs and Imaging studies reviewed. (See chart for details) Patient is evaluated on arrival to his room. Vitals are overall stable but he does have significant tenderness to palpation. Arterial Doppler study ordered of the left lower extremity which is noted to be cyanotic and with difficulty palpating pulses. Contralateral side is normal color and with palpable pulses. He does report GI bleeding we will check stool for guaiac. Will order CT scan of the abdomen pelvis also. 18:30: Available labs are reviewed. Hemoglobin was initially reported to be less than 5. This is currently being rechecked. Patient is not tachycardic but does have soft blood pressures with systolic in the 90s. He did have loose st ool since coming to the ER but no mary grace bleeding was seen. Could not undergo CT scan with contrast and the study was canceled and noncontrasted study is ordered. He has low GFR. Transfer care to Dr. Oliver Lui Disclaimer Sania Disclaimer This electronic medical record was generated, in whole or in part, using a voice recognition dictation system. Departure Departure Disposition: 30 STILL A PATIENT Condition: STABLE Referrals: MIMI MONSALVE MD (PCP) LUCINDA DONALDSON DO Sep 28, 2021 16:24
[2021-09-28] MEDS ORDERED: IV NORMAL SALINE 1000ML BAG 1,000 ML IV ONE ×2 (17:00→19:00)
[2021-09-28 17:40] LABS: CALCIUM 7.8 mg/dL (8.5-10.1); GFR 20.2; POTASSIUM 5.6 mmol/L (3.5-5.1)
[2021-09-28] MEDS ORDERED: fentaNYL PF VIAL 100 MCG/2 ML VIAL IVP ONE (17:45)
--- NOTE | 2021-09-28 17:45 | RAD ---
INDICATION: Reason: pulseless extremity, recent femoral stent placed / Spl. Instructions: / History : COMPARISON: CT abdomen from March 2020 FINDINGS: Spectral Doppler, color and grayscale ultrasound images are obtained through the left leg arterial sy stem. Monophasic flow is seen throughout the left leg arterial system including within the common femoral, superficial femoral and deep femoral artery as well as popliteal artery. Monophasic waveform at the p osterior tibial artery and anterior tibial artery with peroneal and dorsalis pedis not visualized. Pa tent superficial femoral artery stent. 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 This increases in sever ity distally which could be from multifocal regions of narrowing within the left leg. * Superficial femoral artery stent is patent. * Nonvisualization of dorsalis pedis and peroneal artery with occlusion of these vessels not exclude d given the lack of visualization. * 53 x 14 mm complex fluid in the popliteal fossa. Could be from causes such as complex Youssef's cyst or soft tissue hematoma. Electronically signed by: Inderjit Garay MD (09/28/2021 5:43 PM) [id number]
[2021-09-28 17:46] LABS: ALBUMIN 2.5 g/dL (3.4-5.0); ALBUMIN/GLOBULIN RATIO 0.8 (1.0-1.7); TOTAL BILIRUBIN 0.4 mg/dL (0.2-1.0); TOTAL PROTEIN 5.7 g/dL (6.4-8.2)
[2021-09-28] MEDS ORDERED: ONDANSETRON PF 4 MG/2 ML VIAL. IV ONE (18:00)
[2021-09-28 18:24] LABS: BASO % 0 % (0-3); EOS % 0 % (0-3); HEMATOCRIT 17.3 % (39.0-53.0); LYMPH # 0.5 x10^3/uL (1.0-4.8); LYMPH % 4 % (24-48); MEAN CORPUSCULAR HEMOGLOBIN 20 pg (25-35); MEAN CORPUSCULAR HGB CONC 28 g/dL (31-37); MEAN CORPUSCULAR VOLUME 71 fL (79-100); MONO # 0.6 x10^3/uL (0.0-1.1); MONO % 4 % (0-9); NEUT # 13.6 x10^3/uL (1.8-7.7); NEUT % 92 % (31-73); PLATELET COUNT 596 x10^3/uL (140-400); RED BLOOD COUNT 2.45 x10^6/uL (4.30-5.70); RED CELL DISTRIBUTION WIDTH 21.3 % (11.5-14.5); WHITE BLOOD COUNT 14.8 x10^3/uL (4.0-11.0)
[2021-09-28 18:27] LABS: FECAL OB PT POSITIVE (NEG)
[2021-09-28 18:30] LABS: HEMOGLOBIN 4.8 g/dL (13.0-17.5)
[2021-09-28] MEDS ORDERED: PANTOPRAZOLE IV PUSH 40 MG VIAL. IVP ONE (19:00)
[2021-09-28 19:03] LABS: PROTHROMBIN TIME PATIENT 18.9 SEC (11.7-14.0)
[2021-09-28] MEDS ORDERED: cefTRIAXone IV Push 1 GM VIAL. IVP ONE (19:15)
[2021-09-28] MEDS: PANTOPRAZOLE SODIUM IV DRIP 80 MG in IV NORMAL SALINE 100ML 100 ML IV SCH (19:27)
--- NOTE | 2021-09-28 19:28 | RAD ---
CT ABDOMEN+PELVIS WO History: Abdominal pain. Comparison: 05/07/2016/. Technique: CT of the abdomen and pelvis without contrast. Findings: Hypodensity of the intracardiac blood pool compatible with anemia. Atherosclerotic calcifications of coronary arteries. Bilateral lower lobe bronchiectasis and bronchial wall thickening with patchy depe ndent opacities, possibly atelectasis. No pleural effusion. Motion artifact limits evaluation in multiple levels. Unremarkable liver. Status post cholecystectomy . The pancreas, gallbladder and spleen are unremarkable. Bilateral adrenal thickening. There is left lower pole renal cyst redemonstrated measuring approximately 4 cm diameter. Partially obscured bladde r and prostate due to left hip arthroplasty. The stomach is unremarkable. Small bowel is nondilated. Colorectal anastomosis in the left lower quad rant. No colonic wall thickening. No significant diverticular disease. Heavy aortoiliac atherosclerot ic calcification without aneurysm. Mild increased attenuation throughout the mesenteric fat may repre sent mild nonfocal edema. No adenopathy. Right gluteal intramuscular lipoma redemonstrated. Left tota l hip arthroplasty. No acute osseous abnormality identified. There is mild anterolisthesis of L5 on S 1 with bilateral pars interarticularis defects. Impression: 1. Subtle increased attenuation of the mesentery may represent mild nonfocal edema. No other acute f indings in the abdomen and pelvis. 2. No evidence of small bowel obstruction. Left lower quadrant colorectal anastomosis without signif icant residual colonic diverticula burden. 3. Lower lung bronchiectasis, bronchial wall thickening and patchy opacities which may represent ate lectasis, superimposed infection is not excluded. ------ Exposure: One or more of the following individualized dose reduction techniques were utilized for thi s examination: 1. Automated exposure control 2. Adjustment of the mA and/or kV according to patient size 3. Use of iterative reconstruction technique. Electronically signed by: Demetrio Rodriguez MD (09/28/2021 7:25 PM) [facility]
[2021-09-28 19:32] LABS: % LYMPHS 2 % (24-48); % MONOS 4 % (0-10); % SEGS 94 % (35-66); ANISOCYTOSIS MOD; HYPOCHROMIA MARKED; MICROCYTOSIS MOD; NUCLEATED RBC 2; PLT ESTIMATE INCREASED (ADEQUATE); POLYCHROMASIA SLIGHT
[2021-09-28 19:33] LABS: OVALOCYTES MANY; SCHISTOCYTES FEW; SPHEROCYTES OCC
[2021-09-28] MEDS ORDERED: ONDANSETRON PF 4 MG/2 ML VIAL. IVP PRN ×2 (20:00→21:45)
[2021-09-28] MEDS ORDERED: BISACODYL 10 MG SUPP.RECT. PR PRN (20:15)
[2021-09-28] MEDS ORDERED: ACETAMINOPHEN 650 MG SUPP.RECT. PR PRN (20:15)
--- NOTE | 2021-09-28 21:01 | PDOC1 ---
History and Physical Date of Admission Date of Admission DATE: 09/28/21 TIME: 21:01 Identification/Chief Complaint Chief Complaint GI bleed Source Source: Chart review, Patient History of Present Illness History of Present Illness Mr Dumont is an 81yo male with PMHx hard of hearing, smoker, COPD, diverticulosis (s/p bowel resection 03/2021), PAD who presents with abdominal pain, nausea, vomiting and GI bleeding. Has had nausea and vomiting and diarrhea with some blood in his stool for the past 24 hours prior to arrival and now with abdominal pain. Went to his primary care doctor's office Dr. Muñoz and was sent via EMS directly to the ED. He notes one bloody bowel movement and now is sharp abdominal pain that is occasionally stabbing. He notes he thought this problem was taken care of when he had colon resection for diverticulosis in March 2021 ([facility]). He notes associated fatigue and shortness of breath. No chest pain. He notes on 09/23/2021 he went to [facility] [place] [facility] and had an SFA stent placed and was recently started on Xarelto after this. He notes he has follow-up vascular surgery in 1 week. Patient has history of peripheral artery disease I did recently undergo an femoral stent placement. He does complain also of pain in the left foot due to known PAD. Patient reports he has pending additional therapy or stenting scheduled for next week. Today, he complains of abdominal pain and lower GI bleeding. Denies fever. No chest pain or shortness of breath. Seen in ED on 09/17/2021 [facility] in [place] and CR was 1.4 at that time Hb was 7.5. He was given antibiotics for left great toe cellulitis and instructed to f/u with vascular surgery as scheduled. Here in ED noted with WBC 14.8, Hb 4.8, MCV 71, platelets 596, NA 141, K5.6, BUN 103, CR 3, glucose 92, lactic acid 8.5, calcium 7.8, bilirubin 0.4, AST 63, ALT 38, alkaline phosphatase 82, high-sensitivity troponin is 159, NT proBNP is 1994, albumin 2.5, fecal occult blood positive, INR 1.6. LLE arterial doppler Left leg SFA stent patent. Nonvisualization of dorsalis pedis and peroneal artery with occlusion of these vessels not excluded given the lack of visualization. 53 x 14 mm complex fluid in the popliteal fossa. CT abdomen pelvis without contrast with no SBO and left lower quadrant anastomosis with minimal diverticular burden and nonfocal attenuation mesentery possible edema. Admitted to ICU for further care. Past Medical History Cardiovascular: HTN Pulmonary: COPD Past Surgical History Past Surgical History: Cholecystectomy, Hernia Repair (x2), Total hip replacement, Colon Resection (03/2021) Family History Family History: No Significant, Hypertension Social History Smoke: 1 pack per day ALCOHOL: none Drugs: None Current Medications Current Medications Current Medications Sodium Chloride 1,000 ml @ 1,000 mls/hr 1X ONCE IV Last administered on 09/28/21at 16:59; Start 09/28/21 at 17:00; Stop 09/28/21 at 17:59; Status DC Fentanyl Citrate (Fentanyl 2ml Vial) 75 mcg 1X ONCE IVP Last administered on 09/28/21at 17:51; Start 09/28/21 at 17:45; Stop 09/28/21 at 17:46; Status DC Ondansetron HCl (Zofran) 4 mg 1X ONCE IV Last administered on 09/28/21at 19:00; Start 09/28/21 at 18:00; Stop 09/28/21 at 18:01; Status DC Sodium Chloride 1,000 ml @ 1,000 mls/hr 1X ONCE IV Last administered on 09/28/21at 19:00; Start 09/28/21 at 19:00; Stop 09/28/21 at 19:59; Status DC Pantoprazole Sodium (PROTONIX VIAL for IV PUSH) 80 mg 1X ONCE IVP Last administered on 09/28/21at 19:00; Start 09/28/21 at 19:00; Stop 09/28/21 at 19:01; Status DC Pantoprazole Sodium 80 mg/ Sodium Chloride 100 ml @ 10 mls/hr Q10H IV Last administered on 09/28/21at 19:27; Start 09/28/21 at 19:00 Ceftriaxone Sodium (Rocephin) 1 gm 1X ONCE IVP ; Start 09/28/21 at 19:15; Stop 09/28/21 at 19:16; Status DC Ondansetron HCl (Zofran) 4 mg PRN Q8HRS PRN IVP NAUSEA/VOMITING; Start 09/28/21 at 20:00; Stop 09/29/21 at 19:59 Fentanyl Citrate (Fentanyl 2ml Vial) 50 mcg PRN Q1HR PRN IVP PAIN; Start 09/28/21 at 20:00; Stop 09/29/21 at 19:59 Sodium Chloride 1,000 ml @ 75 mls/hr [id number] IV ; Start 09/28/21 at 20:00; Stop 09/29/21 at 19:59 Bisacodyl (Dulcolax Supp) 10 mg PRN DAILY PRN [place] CONSTIPATION; Start 09/28/21 at 20:15 Acetaminophen (Tylenol Supp) 650 mg PRN Q6HRS PRN W[place] MILD PAIN / TEMP > 100.3'F; Start 09/28/21 at 20:15 Active Scripts Active Pantoprazole Sodium (Pantoprazole Sodium) 40 Mg Tablet.dr 40 Mg PO DAILYAC 30 Days Reported Celebrex (Celecoxib) 200 Mg Capsule 200 Mg PO BID 30 Days Trazodone Hcl 100 Mg Tablet 100 Mg PO HS Lisinopril-Hctz 20-12.5 Mg Tab (Lisinopril/Hydrochlorothiazide) 1 Each Tablet 1 Tab PO DAILY Fluticasone Propionate Nasal Nicasio (Fluticasone Propionate) 16 Gm Nicasio.susp 1 Nicasio BAL DAILY Sertraline Hcl 100 Mg Tablet 1.5 Tab PO DAILY Symbicort 160-4.5 Mcg Inhaler (Budesonide/Formoterol Fumarate) 10.2 Gm Hfa.aer.ad 2 Puff IH BID Allergies Allergies: Coded Allergies: No Known Drug Allergies (Unverified , 09/28/21) ROS General: YES: Fatigue, Malaise; No: Chills, Night Sweats, Appetite, Other PSYCHOLOGICAL ROS: YES: Anxiety; No: Behavioral Disorder, Concentration difficultie, Decreased libido, Depression, Disorientation, Hallucinations, Hostility, Irritablity, Memory difficulties, Mood Swings, Obsessive thoughts, Physical abuse, Sexual abuse, Sleep disturbances, Suicidal ideation, Other Eyes: Yes Decreased vision; No Blurry vision, No Double vision, No Dry eyes, No Excessive tearing, No Eye Pain, No Itchy Eyes, No Loss of vision, No Photophobia, No Scotomata, No Uses contacts, No Uses glasses, No Other HEENT: No: Heacaches, Visual Changes, Hearing change, Nasal congestion, Nasal discharge, Oral lesions, Sinus pain, Sore Throat, Epistaxis, Sneezing, Snoring, Tinnitus, Vertigo, Vocal changes, Other ALLERGY AND IMMUNOLOGY: No: Hives, Insect Bite Sensitivity, Itchy/Watery Eyes, Nasal Congestion, Post Nasal Drip, Seasonal Allergies, Other Hematological and Lymphatic: No: Bleeding Problems, Blood Clots, Blood Transfusions, Brusing, Night Sweats, Pallor, Swollen Lymph Nodes, Other ENDOCRINE: No: Breast Changes, Galactorrhea, Hair Pattern Changes, Hot Flashes, Malaise/lethargy, Mood Swings, Palpitations, Polydipsia/polyuria, Skin Changes, Temperature Intolerance, Unexpected Weight Changes, Other Breast: No New/Changing Breast Lumps, No Nipple changes, No Nipple discharge, No Other Respiratory: YES: Shortness of breath, SOB with excertion; No: Cough, Hemoptysis, Orthopnea, Pleuritic Pain, Sputum Changes, Stridor, Tachypnea, Wheezing, Other Cardiovascular: No Chest Pain, No Palpitations, No Orthopnea, No Paroxysmal Noc. Dyspnea, No Edema, No Lt Headedness, No Other Gastrointestinal: Yes Nausea, Yes Vomiting, Yes Abdominal Pain, Yes Diarrhea, Yes Melena, Yes Hematochezia Genitourinary: No Dysuria, No Frequency, No Incontinence, No Hematuria, No Retention, No Discharge, No Urgency, No Pain, No Flank Pain, No Other, No , No , No , No , No , No , No Musculoskeletal: No Gait Disturbance, No Joint Pain, No Joint Stiffness, No Joint Swelling, No Muscle Pain, No Muscular Weakness, No Pain In:, No Swelling In:, No Other Neurological: Yes Dizziness; No Behavorial Changes, No Bowel/Bladder ControlChng, No Confusion, No Gait Disturbance, No Headaches, No Impaired Coord/balance, No Memory Loss, No Numbness/Tingling, No Seizures, No Speech Problems, No Tremors, No Visual Changes, No Weakness, No Other Skin: No Dry Skin, No Eczema, No Hair Changes, No Lumps, No Mole Changes, No Mottling, No Nail Changes, No Pruritus, No Rash, No Skin Lesion Changes, No Other, No Acne Vitals Vitals Vital Signs Date Time Temp Pulse Resp B/P (MAP) Pulse Ox O2 Delivery O2 Flow Rate FiO2 09/28/21 20:35 96.1 78 23 121/52 96.1 09/28/21 20:06 80 Nasal Cannula 3.0 Labs Labs Laboratory Tests Test 09/28/21 16:45 09/28/21 18:10 09/28/21 18:11 Prothrombin Time 18.9 SEC (11.7-14.0) Prothromb Time International Ratio 1.6 (0.8-1.1) Sodium Level 141 mmol/L (136-145) Potassium Level 5.6 mmol/L (3.5-5.1) Chloride Level 105 mmol/L (98-107) Carbon Dioxide Level 17 mmol/L (21-32) Anion Gap 19 (6-14) Blood Urea Nitrogen 103 mg/dL (8-26) Creatinine 3.0 mg/dL (0.7-1.3) Estimated GFR (Cockcroft-Gault) 20.2 BUN/Creatinine Ratio 34 (6-20) Glucose Level 92 mg/dL (70-99) Lactic Acid Level 8.5 mmol/L (0.4-2.0) Calcium Level 7.8 mg/dL (8.5-10.1) Total Bilirubin 0.4 mg/dL (0.2-1.0) Aspartate Amino Transf (AST/SGOT) 63 U/L (15-37) Alanine Aminotransferase (ALT/SGPT) 38 U/L (16-63) Alkaline Phosphatase 82 U/L (46-116) Troponin I High Sensitivity 159 ng/L (4-75) ET-Eey-Q-Type Natriuretic Peptide 1994 pg/mL (0-449) Total Protein 5.7 g/dL (6.4-8.2) Albumin 2.5 g/dL (3.4-5.0) Albumin/Globulin Ratio 0.8 (1.0-1.7) Stool Occult Blood Positive (NEG) White Blood Count 14.8 x10^3/uL (4.0-11.0) Red Blood Count 2.45 x10^6/uL (4.30-5.70) Hemoglobin 4.8 g/dL (13.0-17.5) Hematocrit 17.3 % (39.0-53.0) Mean Corpuscular Volume 71 fL (79-100) Mean Corpuscular Hemoglobin 20 pg (25-35) Mean Corpuscular Hemoglobin Concent 28 g/dL (31-37) Red Cell Distribution Width 21.3 % (11.5-14.5) Platelet Count 596 x10^3/uL (140-400) Neutrophils (%) (Auto) 92 % (31-73) Lymphocytes (%) (Auto) 4 % (24-48) Monocytes (%) (Auto) 4 % (0-9) Eosinophils (%) (Auto) 0 % (0-3) Basophils (%) (Auto) 0 % (0-3) Neutrophils # (Auto) 13.6 x10^3/uL (1.8-7.7) Lymphocytes # (Auto) 0.5 x10^3/uL (1.0-4.8) Monocytes # (Auto) 0.6 x10^3/uL (0.0-1.1) Eosinophils # (Auto) 0.0 x10^3/uL (0.0-0.7) Basophils # (Auto) 0.0 x10^3/uL (0.0-0.2) Segmented Neutrophils % 94 % (35-66) Lymphocytes % 2 % (24-48) Monocytes % 4 % (0-10) Nucleated Red Blood Cells 2 Platelet Estimate Increased (ADEQUATE) Polychromasia Slight Hypochromasia Marked Anisocytosis Mod Microcytosis Mod Spherocytes Occ Ovalocytes Many Schistocytes Few Laboratory Tests Test 09/28/21 16:45 09/28/21 18:10 09/28/21 18:11 Prothrombin Time 18.9 SEC (11.7-14.0) Prothromb Time International Ratio 1.6 (0.8-1.1) Sodium Level 141 mmol/L (136-145) Potassium Level 5.6 mmol/L (3.5-5.1) Chloride Level 105 mmol/L (98-107) Carbon Dioxide Level 17 mmol/L (21-32) Anion Gap 19 (6-14) Blood Urea Nitrogen 103 mg/dL (8-26) Creatinine 3.0 mg/dL (0.7-1.3) Estimated GFR (Cockcroft-Gault) 20.2 BUN/Creatinine Ratio 34 (6-20) Glucose Level 92 mg/dL (70-99) Lactic Acid Level 8.5 mmol/L (0.4-2.0) Calcium Level 7.8 mg/dL (8.5-10.1) Total Bilirubin 0.4 mg/dL (0.2-1.0) Aspartate Amino Transf (AST/SGOT) 63 U/L (15-37) Alanine Aminotransferase (ALT/SGPT) 38 U/L (16-63) Alkaline Phosphatase 82 U/L (46-116) Troponin I High Sensitivity 159 ng/L (4-75) NQ-Eov-X-Type Natriuretic Peptide 1994 pg/mL (0-449) Total Protein 5.7 g/dL (6.4-8.2) Albumin 2.5 g/dL (3.4-5.0) Albumin/Globulin Ratio 0.8 (1.0-1.7) Stool Occult Blood Positive (NEG) White Blood Count 14.8 x10^3/uL (4.0-11.0) Red Blood Count 2.45 x10^6/uL (4.30-5.70) Hemoglobin 4.8 g/dL (13.0-17.5) Hematocrit 17.3 % (39.0-53.0) Mean Corpuscular Volume 71 fL (79-100) Mean Corpuscular Hemoglobin 20 pg (25-35) Mean Corpuscular Hemoglobin Concent 28 g/dL (31-37) Red Cell Distribution Width 21.3 % (11.5-14.5) Platelet Count 596 x10^3/uL (140-400) Neutrophils (%) (Auto) 92 % (31-73) Lymphocytes (%) (Auto) 4 % (24-48) Monocytes (%) (Auto) 4 % (0-9) Eosinophils (%) (Auto) 0 % (0-3) Basophils (%) (Auto) 0 % (0-3) Neutrophils # (Auto) 13.6 x10^3/uL (1.8-7.7) Lymphocytes # (Auto) 0.5 x10^3/uL (1.0-4.8) Monocytes # (Auto) 0.6 x10^3/uL (0.0-1.1) Eosinophils # (Auto) 0.0 x10^3/uL (0.0-0.7) Basophils # (Auto) 0.0 x10^3/uL (0.0-0.2) Segmented Neutrophils % 94 % (35-66) Lymphocytes % 2 % (24-48) Monocytes % 4 % (0-10) Nucleated Red Blood Cells 2 Platelet Estimate Increased (ADEQUATE) Polychromasia Slight Hypochromasia Marked Anisocytosis Mod Microcytosis Mod Spherocytes Occ Ovalocytes Many Schistocytes Few Images Images LLE arterial doppler: Spectral Doppler, color and grayscale ultrasound images are obtained through the left leg arterial system. Monophasic flow is seen throughout the left leg arterial system including within the common femoral, superficial femoral and deep femoral artery as well as pop liteal artery. Monophasic waveform at the posterior tibial artery and anterior tibial artery with peroneal and dorsalis pedis not visualized. Patent superficial femoral artery stent. 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 This increases in severity distally which could be from multifocal regions of narrowing within the left leg. * Superficial femoral artery stent is patent. * Nonvisualization of dorsalis pedis and peroneal artery with occlusion of these vessels not excluded given the lack of visualization. * 53 x 14 mm complex fluid in the popliteal fossa. Could be from causes such as complex Youssef's cyst or soft tissue hematoma. CT abdomen/pelvis w/o contrast: Hypodensity of the intracardiac blood pool compatible with anemia. Atherosclerotic calcifications of coronary arteries. Bilateral lower lobe bronchiectasis and bronchial wall thickening with patchy dependent opacities, possibly atelectasis. No pleural effusion. Motion artifact limits evaluation in multiple levels. Unremarkable liver. Status post cholecystectomy. The pancreas, gallbladder and spleen are unremarkable. Bilateral adrenal thickening. There is left lower pole renal cyst redemonstrated measuring approximately 4 cm diameter. Partially obscured bladder and prostate due to left hip arthroplasty. The stomach is unremarkable. Small bowel is nondilated. Colorectal anastomosis in the left lower quadrant. No colonic wall thickening. No significant diverticular disease. Heavy aortoiliac atherosclerotic calcification without aneurysm. Mild increased attenuation throughout the mesenteric fat may represent mild nonfocal edema. No adenopathy. Right gluteal intramuscular lipoma redemonstrated. Left total hip arthroplasty. No acute osseous abnormality identified. There is mild anterolisthesis of L5 on S1 with bilateral pars interarticularis defects. Impression: 1. Subtle increased attenuation of the mesentery may represent mild nonfocal edema. No other acute findings in the abdomen and pelvis. 2. No evidence of small bowel obstruction. Left lower quadrant colorectal anastomosis without significant residual colonic diverticula burden. 3. Lower lung bronchiectasis, bronchial wall thickening and patchy opacities which may represent atelectasis, superimposed infection is not excluded. VTE Prophylaxis Ordered VTE Prophylaxis Devices: Yes VTE Pharmacological Prophylaxi: No Assessment/Plan Assessment/Plan Acute anemia - on IV PPI, transfuse 2u PRBC, Hb 7.5 on 09/17/21. GI losses recently on xarelto. Hold xarelto, transfuse for Hb < 8, will give additional 2 units after this 2uPRBC Lower GI bleed - previously with hyperplastic polyps in 2019, states he had colon resection at [facility] in March 2021. Will keep NPO. Consult GI Left great toe ulcer - was on antibiotics, looks vascular. Given rocephin x1, will continue Left leg pain - PAD s/p SFA stenting. Should be on antiplatelet agent, but with large GI bleed this will be difficult. Hold xarelto for now Hard of hearing - some residual hearing in right ear. Needs his hearing aids Smoker - counseled on cessation Agitation - precedex GTT COPD - prn nebs HTN - hold meds for low BP Depression - NPO for now, hold meds Leukocytosis - likely reactive with blood loss and GI symptoms N/V/D - likely from GI bleed. Will r/o enteric pathogens and c. difficile as wel l given recent antibiotic exposure FEN - NPO PPX - PPI, hold xarelto, SCDs FULL CODE Dispo - ICU cc time 39 minutes Justifications for Admission Other Justification JOSE POLLARD MD Sep 28, 2021 21:01
[2021-09-28] MEDS: IV NORMAL SALINE 1000ML BAG 1,000 ML IV SCH (21:12)
[2021-09-28] MEDS: fentaNYL PF VIAL 100 MCG/2 ML VIAL IVP PRN ×2 (21:12→22:36)
[2021-09-28] MEDS ORDERED: ATROPINE 0.5 MG/5 ML DISP.SYRINGE. IV PRN (21:45)
[2021-09-28] MEDS ORDERED: IV NORMAL SALINE 500ML BAG 500 ML IV PRN (21:45)
[2021-09-28] MEDS: DEXMEDETOMIDINE 400 MCG in IV NORMAL SALINE 100ML 96 ML IV PRN ×2 (21:46→23:44)
[2021-09-28] MEDS ORDERED: guaiFENesin DM 200MG/20MG 10 ML SYRUP PO PRN (22:30)
[2021-09-28] MEDS ORDERED: ALBUTEROL SULFATE 2.5 MG/3 ML NEBU. NEB PRN (22:30)
[2021-09-28] MEDS ORDERED: NOREPINEPHRINE VIAL 8 MG in IV DEXTROSE 5% 250 ML IV PRN (23:30)
[2021-09-29] VITALS (26 sets, daily range): BP systolic 77–141; BP diastolic 39–65
[2021-09-29 00:06] LABS: HEMATOCRIT 19.1 % (39.0-53.0); RED BLOOD COUNT 2.56 x10^6/uL (4.30-5.70); WHITE BLOOD COUNT 14.6 x10^3/uL (4.0-11.0)
[2021-09-29 00:16] LABS: CALCIUM 7.4 mg/dL (8.5-10.1); CREATININE 2.9 mg/dL (0.7-1.3); POTASSIUM 5.9 mmol/L (3.5-5.1)
[2021-09-29 00:17] LABS: HEMOGLOBIN 5.6 g/dL (13.0-17.5)
[2021-09-29] MEDS: fentaNYL PF VIAL 100 MCG/2 ML VIAL IVP PRN ×3 (02:12→23:33)
[2021-09-29 05:39] LABS: BASO % 0 % (0-3); EOS % 0 % (0-3); HEMATOCRIT 25.5 % (39.0-53.0); LYMPH # 0.3 x10^3/uL (1.0-4.8); LYMPH % 2 % (24-48); MEAN CORPUSCULAR HEMOGLOBIN 24 pg (25-35); MEAN CORPUSCULAR HGB CONC 31 g/dL (31-37); MEAN CORPUSCULAR VOLUME 76 fL (79-100); MONO # 0.5 x10^3/uL (0.0-1.1); MONO % 4 % (0-9); NEUT # 10.5 x10^3/uL (1.8-7.7); NEUT % 93 % (31-73); PLATELET COUNT 308 x10^3/uL (140-400); RED BLOOD COUNT 3.38 x10^6/uL (4.30-5.70); WHITE BLOOD COUNT 11.3 x10^3/uL (4.0-11.0)
[2021-09-29] MEDS: DEXMEDETOMIDINE 400 MCG in IV NORMAL SALINE 100ML 96 ML IV PRN (06:29)
[2021-09-29] MEDS: PANTOPRAZOLE SODIUM IV DRIP 80 MG in IV NORMAL SALINE 100ML 100 ML IV SCH (06:29)
[2021-09-29 06:50] LABS: ALBUMIN 2.4 g/dL (3.4-5.0); ALBUMIN/GLOBULIN RATIO 0.9 (1.0-1.7); CALCIUM 7.2 mg/dL (8.5-10.1); CREATININE 2.5 mg/dL (0.7-1.3); GFR 24.9; TOTAL BILIRUBIN 0.4 mg/dL (0.2-1.0)
--- NOTE | 2021-09-29 10:00 | PDOC2 ---
GI CONSULT Date of Service: DATE: 09/29/21 TIME: 10:00 Reason For Consult: GI bleeding HPI: HPI: 81 y/o male who has seen Dr. Garcia in the past. Challenging history - he speaks slowly, seems difficult to remember details. Brown and red diarrhea yesterday, dark red blood w/ wiping. No abd pain or n/v. Didn't eat much (?or anything) yesterday. Nurse says no diarrhea/bleeding since arriving at hospital. Had LLE stent placed last week, started on Xarelto (now held). Noted w/ profound anemia - Hgb 4.8, MCV 71. Also Cr 3, BUN 103. Today, AST 6 98, ALT 353, normal bili and Alk Phos. Hgb improved to 8 s/p transfusions. BP lowish - not on pressors per nurse. From past encounter: occasional acid reflux. EGD 05/2020: unremarkable. Colonoscopy 05/2020: incomplete exam due to diverticulosis, did have hyperplastic rectal polyps. Records unavailable for review, but s/p colon resection (presumably for diverticular disease) @ [facility] in 03/2021. S/p cholecystectomy in 2016 - had cholelithiasis - also bile leak requiring ERCP/stent. "I take a whole bucket of pills." Lives alone, neighbor helps. C/o foot cramps. PMH: PMH: HTN, COPD, macular degeneration, hearing loss, anxiety/depression, PAD, osteopenia hemorrhoidectomy, ventral hernia repair, left hip replacement, colon resection, SFA stent (left), cholecystectomy/bile leak/stent (removal) FH: Family History: No pertinent hx Social History: Smoke: 1 pack per day ALCOHOL: none Drugs: None ROS: GEN: Denies fevers, chills, sweats HEENT: "blind" CV: Denies chest pain RESP: Denies shortness of air, cough GI: Per HPI : Denies hematuria, dysuria ENDO: Denies weight changes NEURO: Denies confusion, dizziness MSK: +weakness +muscle cramps SKIN: Denies jaundice, pruritus Vitals: Vitals: Vital Signs Date Time Temp Pulse Resp B/P (MAP) Pulse Ox O2 Delivery O2 Flow Rate FiO2 09/29/21 09:22 98 Room Air 09/29/21 09:00 65 12 98/44 09/29/21 08:00 97.3 97.3 09/29/21 02:42 3.0 Labs: Labs: Laboratory Tests Test 09/28/21 16:45 09/28/21 18:10 09/28/21 18:11 09/28/21 21:38 Prothrombin Time 18.9 SEC (11.7-14.0) Prothromb Time International Ratio 1.6 (0.8-1.1) Sodium Level 141 mmol/L (136-145) Potassium Level 5.6 mmol/L (3.5-5.1) Chloride Level 105 mmol/L (98-107) Carbon Dioxide Level 17 mmol/L (21-32) Anion Gap 19 (6-14) Blood Urea Nitrogen 103 mg/dL (8-26) Creatinine 3.0 mg/dL (0.7-1.3) Estimated GFR (Cockcroft-Gault) 20.2 BUN/Creatinine Ratio 34 (6-20) Glucose Level 92 mg/dL (70-99) Lactic Acid Level 8.5 mmol/L (0.4-2.0) 12.9 mmol/L (0.4-2.0) Calcium Level 7.8 mg/dL (8.5-10.1) Total Bilirubin 0.4 mg/dL (0.2-1.0) Aspartate Amino Transf (AST/SGOT) 63 U/L (15-37) Alanine Aminotransferase (ALT/SGPT) 38 U/L (16-63) Alkaline Phosphatase 82 U/L (46-116) Troponin I High Sensitivity 159 ng/L (4-75) FE-Lzd-Y-Type Natriuretic Peptide 1994 pg/mL (0-449) Total Protein 5.7 g/dL (6.4-8.2) Albumin 2.5 g/dL (3.4-5.0) Albumin/Globulin Ratio 0.8 (1.0-1.7) Stool Occult Blood Positive (NEG) White Blood Count 14.8 x10^3/uL (4.0-11.0) Red Blood Count 2.45 x10^6/uL (4.30-5.70) Hemoglobin 4.8 g/dL (13.0-17.5) Hematocrit 17.3 % (39.0-53.0) Mean Corpuscular Volume 71 fL (79-100) Mean Corpuscular Hemoglobin 20 pg (25-35) Mean Corpuscular Hemoglobin Concent 28 g/dL (31-37) Red Cell Distribution Width 21.3 % (11.5-14.5) Platelet Count 596 x10^3/uL (140-400) Neutrophils (%) (Auto) 92 % (31-73) Lymphocytes (%) (Auto) 4 % (24-48) Monocytes (%) (Auto) 4 % (0-9) Eosinophils (%) (Auto) 0 % (0-3) Basophils (%) (Auto) 0 % (0-3) Neutrophils # (Auto) 13.6 x10^3/uL (1.8-7.7) Lymphocytes # (Auto) 0.5 x10^3/uL (1.0-4.8) Monocytes # (Auto) 0.6 x10^3/uL (0.0-1.1) Eosinophils # (Auto) 0.0 x10^3/uL (0.0-0.7) Basophils # (Auto) 0.0 x10^3/uL (0.0-0.2) Segmented Neutrophils % 94 % (35-66) Lymphocytes % 2 % (24-48) Monocytes % 4 % (0-10) Nucleated Red Blood Cells 2 Platelet Estimate Increased (ADEQUATE) Polychromasia Slight Hypochromasia Marked Anisocytosis Mod Microcytosis Mod Spherocytes Occ Ovalocytes Many Schistocytes Few Test 09/28/21 23:55 09/29/21 05:30 White Blood Count 14.6 x10^3/uL (4.0-11.0) 11.3 x10^3/uL (4.0-11.0) Red Blood Count 2.56 x10^6/uL (4.30-5.70) 3.38 x10^6/uL (4.30-5.70) Hemoglobin 5.6 g/dL (13.0-17.5) 8.0 g/dL (13.0-17.5) Hematocrit 19.1 % (39.0-53.0) 25.5 % (39.0-53.0) Mean Corpuscular Volume 74 fL (79-100) 76 fL (79-100) Mean Corpuscular Hemoglobin 22 pg (25-35) 24 pg (25-35) Mean Corpuscular Hemoglobin Concent 29 g/dL (31-37) 31 g/dL (31-37) Red Cell Distribution Width 23.0 % (11.5-14.5) 23.0 % (11.5-14.5) Platelet Count 374 x10^3/uL (140-400) 308 x10^3/uL (140-400) Sodium Level 146 mmol/L (136-145) 145 mmol/L (136-145) Potassium Level 5.9 mmol/L (3.5-5.1) 5.0 mmol/L (3.5-5.1) Chloride Level 110 mmol/L (98-107) 113 mmol/L (98-107) Carbon Dioxide Level 16 mmol/L (21-32) 20 mmol/L (21-32) Anion Gap 20 (6-14) 12 (6-14) Blood Urea Nitrogen 106 mg/dL (8-26) 101 mg/dL (8-26) Creatinine 2.9 mg/dL (0.7-1.3) 2.5 mg/dL (0.7-1.3) Estimated GFR (Cockcroft-Gault) 21.0 24.9 Glucose Level 104 mg/dL (70-99) 124 mg/dL (70-99) Calcium Level 7.4 mg/dL (8.5-10.1) 7.2 mg/dL (8.5-10.1) Troponin I High Sensitivity 290 ng/L (4-75) Neutrophils (%) (Auto) 93 % (31-73) Lymphocytes (%) (Auto) 2 % (24-48) Monocytes (%) (Auto) 4 % (0-9) Eosinophils (%) (Auto) 0 % (0-3) Basophils (%) (Auto) 0 % (0-3) Neutrophils # (Auto) 10.5 x10^3/uL (1.8-7.7) Lymphocytes # (Auto) 0.3 x10^3/uL (1.0-4.8) Monocytes # (Auto) 0.5 x10^3/uL (0.0-1.1) Eosinophils # (Auto) 0.0 x10^3/uL (0.0-0.7) Basophils # (Auto) 0.0 x10^3/uL (0.0-0.2) BUN/Creatinine Ratio 40 (6-20) Total Bilirubin 0.4 mg/dL (0.2-1.0) Aspartate Amino Transf (AST/SGOT) 698 U/L (15-37) Alanine Aminotransferase (ALT/SGPT) 353 U/L (16-63) Alkaline Phosphatase 84 U/L (46-116) Total Protein 5.0 g/dL (6.4-8.2) Albumin 2.4 g/dL (3.4-5.0) Albumin/Globulin Ratio 0.9 (1.0-1.7) Allergies: Coded Allergies: No Known Drug Allergies (Unverified , 09/28/21) Medications: Current Medications Medications (Trade) Dose Ordered Sig/Olman Route PRN Reason Start Time Stop Time Status Last Admin Dose Admin Sodium Chloride 1,000 ml @ 1,000 mls/hr 1X ONCE IV 09/28/21 17:00 09/28/21 17:59 DC 09/28/21 16:59 Fentanyl Citrate (Fentanyl 2ml Vial) 75 mcg 1X ONCE IVP 09/28/21 17:45 09/28/21 17:46 DC 09/28/21 17:51 Ondansetron HCl (Zofran) 4 mg 1X ONCE IV 09/28/21 18:00 09/28/21 18:01 DC 09/28/21 19:00 Sodium Chloride 1,000 ml @ 1,000 mls/hr 1X ONCE IV 09/28/21 19:00 09/28/21 19:59 DC 09/28/21 19:00 Pantoprazole Sodium (PROTONIX VIAL for IV PUSH) 80 mg 1X ONCE IVP 09/28/21 19:00 09/28/21 19:01 DC 09/28/21 19:00 Pantoprazole Sodium 80 mg/ Sodium Chloride 100 ml @ 10 mls/hr Q10H IV 09/28/21 19:00 10/01/21 18:59 09/29/21 06:29 Ceftriaxone Sodium (Rocephin) 1 gm 1X ONCE IVP 09/28/21 19:15 09/28/21 19:16 DC 09/28/21 23:43 Fentanyl Citrate (Fentanyl 2ml Vial) 50 mcg PRN Q1HR PRN IVP PAIN 09/28/21 20:00 09/29/21 02:12 Sodium Chloride 1,000 ml @ 75 mls/hr [id number] IV 09/28/21 20:00 09/29/21 19:59 09/28/21 21:12 Dexmedetomidine HCl 400 mcg/ Sodium Chloride 100 ml @ 3.305 mls/ hr CONT PRN IV PER PROTOCOL 09/28/21 21:45 09/29/21 06:29 Norepinephrine Bitartrate 8 mg/ Dextrose 258 ml @ 12.79 mls/ hr CONT PRN IV PER PROTOCOL 09/28/21 23:30 09/28/21 23:35 Imaging: Imaging: LE US IMPRESSION: * 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 This increases in severity distally which could be from multifocal regions of narrowing within the left leg. * Superficial femoral artery stent is patent. * Nonvisualization of dorsalis pedis and peroneal artery with occlusion of these vessels not excluded given the lack of visualization. * 53 x 14 mm complex fluid in the popliteal fossa. Could be from causes such as complex Youssef's cyst or soft tissue hematoma. CT A/P Findings: Hypodensity of the intracardiac blood pool compatible with anemia. Atheroscl erotic calcifications of coronary arteries. Bilateral lower lobe bronchiectasis and bronchial wall thickening with patchy dependent opacities, possibly atelectasis. No pleural effusion. Motion artifact limits evaluation in multiple levels. Unremarkable liver. Status post cholecystectomy. The pancreas, gallbladder and spleen are unremarkable. Bilateral adrenal thickening. There is left lower pole renal cyst redemonstrated measuring approximately 4 cm diameter. Partially obscured bladder and prostate due to left hip arthroplasty. The stomach is unremarkable. Small bowel is nondilated. Colorectal anastomosis in the left lower quadrant. No colonic wall thickening. No significant diverticular disease. Heavy aortoiliac atherosclerotic calcification without aneurysm. Mild increased attenuation throughout the mesenteric fat may represent mild nonfocal edema. No adenopathy. Right gluteal intramuscular lipoma redemonstrated. Left total hip arthroplasty. No acute osseous abnormality identified. There is mild anterolisthesis of L5 on S1 with bilateral pars interarticularis defects. Impression: 1. Subtle increased attenuation of the mesentery may represent mild nonfocal edema. No other acute findings in the abdomen and pelvis. 2. No evidence of small bowel obstruction. Left lower quadrant colorectal anastomosis without significant residual colonic diverticula burden. 3. Lower lung bronchiectasis, bronchial wall thickening and patchy opacities which may represent atelectasis, superimposed infection is not excluded. PE: GEN: NAD HEENT: Atraumatic, PERRL LUNGS: diminished anteriorly HEART: RRR ABD: quiet BS, soft, non-tender, non-distended EXTREMITY: No edema SKIN: bruising NEURO/PSYCH: A & O 3 - speaks slowly A/P: A/P: Diarrhea/hematochezia - prior to admission Profound microcytic anemia, +Hemoccult - improved w/ transfusion 4 units pRBCs Coagluopathy (INR 1.6) - Xarelto held Elevated AST and ALT - ?hypotension-related - unremarkable liver on CT Elevated lactic acid, BNP, troponin, and ONUR - defer to primary CRC screen - incomplete colonoscopy 05/2020 (prior to surgery) S/p colon resection for diverticular disease PAD s/p left PAD stent Left great toe ulcer - on atbx per primary -- D/w Dr. Garcia - medical therapy GI-mccurdy - observe, monitor labs and for recurrent bleeding. Agree w/ PPI - IV push for now. Can have ice chips/sips of water. Note C Diff and enteric panel ordered. CASA RICH Sep 29, 2021 10:00
--- NOTE | 2021-09-29 10:39 | PDOC ---
[employer] PROGRESS NOTE Date of Service DOS: DATE: 09/29/21 TIME: 10:38 Chief Complaint Chief Complaint GI bleed (hemoglobin was down to 4.8 got 4 units) Chronic anticoagulation on Xarelto Recent femoral stent placed in February [facility] COPD Hypertension Arthritis Depression Anxiety GERD Allergic rhinitis Cholecystectomy Hip replacement Continued tobacco abuse Hip repair Hard of hearing Diverticulosis (s/p bowel resection 03/2021) History of Present Illness History of Present Illness 09/29/2019 Patient seen and examined in the ICU Discussed with RN Chart reviewed Vitals/I&O Vitals/I&O: Vital Signs Date Time Temp Pulse Resp B/P (MAP) Pulse Ox O2 Delivery O2 Flow Rate FiO2 09/29/21 09:22 98 Room Air 09/29/21 09:00 65 12 98/44 09/29/21 08:00 97.3 97.3 09/29/21 02:42 3.0 I & O 09/28/21 09/28/21 09/29/21 15:00 23:00 07:00 Intake Total 350 ml 4086 ml Output Total 1100 ml Balance 350 ml 2986 ml Physical Exam General: Cooperative, mild distress Heart: Regular rate Lungs: Wheezing Abdomen: Normal bowel sounds Extremities: No clubbing Skin: No rashes Labs Labs: Laboratory Tests Test 09/28/21 16:45 09/28/21 18:10 09/28/21 18:11 09/28/21 21:38 Prothrombin Time 18.9 SEC (11.7-14.0) Prothromb Time International Ratio 1.6 (0.8-1.1) Sodium Level 141 mmol/L (136-145) Potassium Level 5.6 mmol/L (3.5-5.1) Chloride Level 105 mmol/L (98-107) Carbon Dioxide Level 17 mmol/L (21-32) Anion Gap 19 (6-14) Blood Urea Nitrogen 103 mg/dL (8-26) Creatinine 3.0 mg/dL (0.7-1.3) Estimated GFR (Cockcroft-Gault) 20.2 BUN/Creatinine Ratio 34 (6-20) Glucose Level 92 mg/dL (70-99) Lactic Acid Level 8.5 mmol/L (0.4-2.0) 12.9 mmol/L (0.4-2.0) Calcium Level 7.8 mg/dL (8.5-10.1) Total Bilirubin 0.4 mg/dL (0.2-1.0) Aspartate Amino Transf (AST/SGOT) 63 U/L (15-37) Alanine Aminotransferase (ALT/SGPT) 38 U/L (16-63) Alkaline Phosphatase 82 U/L (46-116) Troponin I High Sensitivity 159 ng/L (4-75) AX-Rxm-I-Type Natriuretic Peptide 1994 pg/mL (0-449) Total Protein 5.7 g/dL (6.4-8.2) Albumin 2.5 g/dL (3.4-5.0) Albumin/Globulin Ratio 0.8 (1.0-1.7) Stool Occult Blood Positive (NEG) White Blood Count 14.8 x10^3/uL (4.0-11.0) Red Blood Count 2.45 x10^6/uL (4.30-5.70) Hemoglobin 4.8 g/dL (13.0-17.5) Hematocrit 17.3 % (39.0-53.0) Mean Corpuscular Volume 71 fL (79-100) Mean Corpuscular Hemoglobin 20 pg (25-35) Mean Corpuscular Hemoglobin Concent 28 g/dL (31-37) Red Cell Distribution Width 21.3 % (11.5-14.5) Platelet Count 596 x10^3/uL (140-400) Neutrophils (%) (Auto) 92 % (31-73) Lymphocytes (%) (Auto) 4 % (24-48) Monocytes (%) (Auto) 4 % (0-9) Eosinophils (%) (Auto) 0 % (0-3) Basophils (%) (Auto) 0 % (0-3) Neutrophils # (Auto) 13.6 x10^3/uL (1.8-7.7) Lymphocytes # (Auto) 0.5 x10^3/uL (1.0-4.8) Monocytes # (Auto) 0.6 x10^3/uL (0.0-1.1) Eosinophils # (Auto) 0.0 x10^3/uL (0.0-0.7) Basophils # (Auto) 0.0 x10^3/uL (0.0-0.2) Segmented Neutrophils % 94 % (35-66) Lymphocytes % 2 % (24-48) Monocytes % 4 % (0-10) Nucleated Red Blood Cells 2 Platelet Estimate Increased (ADEQUATE) Polychromasia Slight Hypochromasia Marked Anisocytosis Mod Microcytosis Mod Spherocytes Occ Ovalocytes Many Schistocytes Few Test 09/28/21 23:55 09/29/21 05:30 White Blood Count 14.6 x10^3/uL (4.0-11.0) 11.3 x10^3/uL (4.0-11.0) Red Blood Count 2.56 x10^6/uL (4.30-5.70) 3.38 x10^6/uL (4.30-5.70) Hemoglobin 5.6 g/dL (13.0-17.5) 8.0 g/dL (13.0-17.5) Hematocrit 19.1 % (39.0-53.0) 25.5 % (39.0-53.0) Mean Corpuscular Volume 74 fL (79-100) 76 fL (79-100) Mean Corpuscular Hemoglobin 22 pg (25-35) 24 pg (25-35) Mean Corpuscular Hemoglobin Concent 29 g/dL (31-37) 31 g/dL (31-37) Red Cell Distribution Width 23.0 % (11.5-14.5) 23.0 % (11.5-14.5) Platelet Count 374 x10^3/uL (140-400) 308 x10^3/uL (140-400) Sodium Level 146 mmol/L (136-145) 145 mmol/L (136-145) Potassium Level 5.9 mmol/L (3.5-5.1) 5.0 mmol/L (3.5-5.1) Chloride Level 110 mmol/L (98-107) 113 mmol/L (98-107) Carbon Dioxide Level 16 mmol/L (21-32) 20 mmol/L (21-32) Anion Gap 20 (6-14) 12 (6-14) Blood Urea Nitrogen 106 mg/dL (8-26) 101 mg/dL (8-26) Creatinine 2.9 mg/dL (0.7-1.3) 2.5 mg/dL (0.7-1.3) Estimated GFR (Cockcroft-Gault) 21.0 24.9 Glucose Level 104 mg/dL (70-99) 124 mg/dL (70-99) Calcium Level 7.4 mg/dL (8.5-10.1) 7.2 mg/dL (8.5-10.1) Troponin I High Sensitivity 290 ng/L (4-75) Neutrophils (%) (Auto) 93 % (31-73) Lymphocytes (%) (Auto) 2 % (24-48) Monocytes (%) (Auto) 4 % (0-9) Eosinophils (%) (Auto) 0 % (0-3) Basophils (%) (Auto) 0 % (0-3) Neutrophils # (Auto) 10.5 x10^3/uL (1.8-7.7) Lymphocytes # (Auto) 0.3 x10^3/uL (1.0-4.8) Monocytes # (Auto) 0.5 x10^3/uL (0.0-1.1) Eosinophils # (Auto) 0.0 x10^3/uL (0.0-0.7) Basophils # (Auto) 0.0 x10^3/uL (0.0-0.2) BUN/Creatinine Ratio 40 (6-20) Total Bilirubin 0.4 mg/dL (0.2-1.0) Aspartate Amino Transf (AST/SGOT) 698 U/L (15-37) Alanine Aminotransferase (ALT/SGPT) 353 U/L (16-63) Alkaline Phosphatase 84 U/L (46-116) Total Protein 5.0 g/dL (6.4-8.2) Albumin 2.4 g/dL (3.4-5.0) Albumin/Globulin Ratio 0.9 (1.0-1.7) Assessment and Plan Assessmemt and Plan GI bleed (hemoglobin was down to 4.8 got 4 units) Hematochezia Chronic anticoagulation on Xarelto Recent femoral stent placed in February [facility] COPD Hypertension Arthritis Depression Anxiety GERD Allergic rhinitis Cholecystectomy Hip replacement Continued tobacco abuse Hip repair Hard of hearing Diverticulosis (s/p bowel resection 03/2021) PAD Agitation Leukocytosis Left toe ulcer Plan ICU monitoring As needed transfusions Trend hemoglobin and other labs We have consulted GI Proton pump and inhibitors (he is on IV Protonix) Hold anticoagulation Wound care N.p.o. IV fluid Continue other home medications DVT prophylaxis Full code Appreciate subspecialist input Comment Review of Relevant I have reviewed the following items emilio (where applicable) has been applied. Medications: Current Medications Medications (Trade) Dose Ordered Sig/Olman Route PRN Reason Start Time Stop Time Status Last Admin Dose Admin Sodium Chloride 1,000 ml @ 1,000 mls/hr 1X ONCE IV 09/28/21 17:00 09/28/21 17:59 DC 09/28/21 16:59 Fentanyl Citrate (Fentanyl 2ml Vial) 75 mcg 1X ONCE IVP 09/28/21 17:45 09/28/21 17:46 DC 09/28/21 17:51 Ondansetron HCl (Zofran) 4 mg 1X ONCE IV 09/28/21 18:00 09/28/21 18:01 DC 09/28/21 19:00 Sodium Chloride 1,000 ml @ 1,000 mls/hr 1X ONCE IV 09/28/21 19:00 09/28/21 19:59 DC 09/28/21 19:00 Pantoprazole Sodium (PROTONIX VIAL for IV PUSH) 80 mg 1X ONCE IVP 09/28/21 19:00 09/28/21 19:01 DC 09/28/21 19:00 Pantoprazole Sodium 80 mg/ Sodium Chloride 100 ml @ 10 mls/hr Q10H IV 09/28/21 19:00 10/01/21 18:59 09/29/21 06:29 Ceftriaxone Sodium (Rocephin) 1 gm 1X ONCE IVP 09/28/21 19:15 09/28/21 19:16 DC 09/28/21 23:43 Fentanyl Citrate (Fentanyl 2ml Vial) 50 mcg PRN Q1HR PRN IVP PAIN 09/28/21 20:00 09/29/21 02:12 Sodium Chloride 1,000 ml @ 75 mls/hr [id number] IV 09/28/21 20:00 09/29/21 19:59 09/28/21 21:12 Dexmedetomidine HCl 400 mcg/ Sodium Chloride 100 ml @ 3.305 mls/ hr CONT PRN IV PER PROTOCOL 09/28/21 21:45 09/29/21 06:29 Norepinephrine Bitartrate 8 mg/ Dextrose 258 ml @ 12.79 mls/ hr CONT PRN IV PER PROTOCOL 09/28/21 23:30 09/28/21 23:35 Justifications for Admission Other Justification JOEY BAXTER III DO Sep 29, 2021 10:39
[2021-09-29] MEDS: PANTOPRAZOLE IV PUSH 40 MG VIAL. IVP SCH (13:49)
[2021-09-29] MEDS: IV NORMAL SALINE 1000ML BAG 1,000 ML IV SCH (14:04)
--- NOTE | 2021-09-29 15:59 | NUR ---
SS following for discharge planning. SS reviewed pt chart and discussed with pt RN. Pt is from home and is currently on room air. GI following. Pt received four units of blood yesterday. Pt on IV Rocephin and Levophed. SS will continue to follow for discharge planning.
[2021-09-29] MEDS: cefTRIAXone IV Push 1 GM VIAL. IVP SCH (19:00)
[2021-09-30] VITALS (18 sets, daily range): BP systolic 95–129; BP diastolic 44–68
[2021-09-30 05:35] LABS: HEMATOCRIT 24.5 % (39.0-53.0); HEMOGLOBIN 7.9 g/dL (13.0-17.5); RED BLOOD COUNT 3.28 x10^6/uL (4.30-5.70); RED CELL DISTRIBUTION WIDTH 23.7 % (11.5-14.5)
[2021-09-30 05:57] LABS: ALBUMIN/GLOBULIN RATIO 0.7 (1.0-1.7); CALCIUM 6.9 mg/dL (8.5-10.1); CREATININE 1.9 mg/dL (0.7-1.3); GFR 34.2; POTASSIUM 3.7 mmol/L (3.5-5.1); TOTAL BILIRUBIN 0.4 mg/dL (0.2-1.0); TOTAL PROTEIN 4.7 g/dL (6.4-8.2)
[2021-09-30] MEDS: PANTOPRAZOLE IV PUSH 40 MG VIAL. IVP SCH (09:08)
[2021-09-30] MEDS: IV NORMAL SALINE 1000ML BAG 1,000 ML IV SCH ×2 (09:15→19:15)
[2021-09-30] MEDS: fentaNYL PF VIAL 100 MCG/2 ML VIAL IVP PRN ×3 (10:26→16:35)
--- NOTE | 2021-09-30 10:46 | PDOC ---
[employer] PROGRESS NOTE Date of Service DOS: DATE: 09/30/21 TIME: 10:44 Chief Complaint Chief Complaint GI bleed (hemoglobin was down to 4.8 got 4 units) Chronic anticoagulation on Xarelto Recent femoral stent placed in February [facility] COPD Hypertension Arthritis Depression Anxiety GERD Allergic rhinitis Cholecystectomy Hip replacement Continued tobacco abuse Hip repair Hard of hearing Diverticulosis (s/p bowel resection 03/2021) History of Present Illness History of Present Illness 09/30/2021 Patient seen and examined in the ICU He seems pleasantly confused Weak and hard of hearing Chart reviewed Discussed with RN Hemoglobin at 7.9 today His pressure was running a little low We have started some normal saline at 100 cc an hour 09/29/2019 Patient seen and examined in the ICU Discussed with RN Chart reviewed Vitals/I&O Vitals/I&O: Vital Signs Date Time Temp Pulse Resp B/P (MAP) Pulse Ox O2 Delivery O2 Flow Rate FiO2 09/30/21 10:26 18 97 Room Air 3.0 09/30/21 10:21 65 111/57 09/30/21 07:00 97.0 97.0 I & O 09/29/21 09/29/21 09/30/21 15:00 23:00 07:00 Intake Total 300 ml 1256 ml 200 ml Output Total 655 ml 900 ml 650 ml Balance -355 ml 356 ml -450 ml Physical Exam General: Cooperative, Other (Seems a little confused and hard of hearing) Heart: Regular rate Lungs: Wheezing Abdomen: Normal bowel sounds Extremities: No clubbing Skin: No rashes Labs Labs: Laboratory Tests Test 09/30/21 05:10 White Blood Count 9.0 x10^3/uL (4.0-11.0) Red Blood Count 3.28 x10^6/uL (4.30-5.70) Hemoglobin 7.9 g/dL (13.0-17.5) Hematocrit 24.5 % (39.0-53.0) Mean Corpuscular Volume 75 fL (79-100) Mean Corpuscular Hemoglobin 24 pg (25-35) Mean Corpuscular Hemoglobin Concent 32 g/dL (31-37) Red Cell Distribution Width 23.7 % (11.5-14.5) Platelet Count 282 x10^3/uL (140-400) Sodium Level 143 mmol/L (136-145) Potassium Level 3.7 mmol/L (3.5-5.1) Chloride Level 109 mmol/L (98-107) Carbon Dioxide Level 21 mmol/L (21-32) Anion Gap 13 (6-14) Blood Urea Nitrogen 74 mg/dL (8-26) Creatinine 1.9 mg/dL (0.7-1.3) Estimated GFR (Cockcroft-Gault) 34.2 BUN/Creatinine Ratio 39 (6-20) Glucose Level 90 mg/dL (70-99) Calcium Level 6.9 mg/dL (8.5-10.1) Total Bilirubin 0.4 mg/dL (0.2-1.0) Aspartate Amino Transf (AST/SGOT) 347 U/L (15-37) Alanine Aminotransferase (ALT/SGPT) 256 U/L (16-63) Alkaline Phosphatase 85 U/L (46-116) Total Protein 4.7 g/dL (6.4-8.2) Albumin 2.0 g/dL (3.4-5.0) Albumin/Globulin Ratio 0.7 (1.0-1.7) Assessment and Plan Assessmemt and Plan GI bleed (hemoglobin was down to as low as 4.8 got 4 units) Hematochezia Chronic anticoagulation on Xarelto Recent femoral stent placed in February [facility] COPD Hypertension Arthritis Depression Anxiety GERD Allergic rhinitis Cholecystectomy Hip replacement Continued tobacco abuse Hip repair Hard of hearing Diverticulosis (s/p bowel resection 03/2021) PAD Agitation Leukocytosis Left toe ulcer Plan ICU monitoring As needed transfusions Trend hemoglobin and other labs GI following Proton pump and inhibitors (he is on IV Protonix) Hold anticoagulation Wound care N.p.o. IV fluid Continue other home medications DVT prophylaxis Full code Appreciate subspecialist input Comment Review of Relevant I have reviewed the following items emilio (where applicable) has been applied. Medications: Current Medications Medications (Trade) Dose Ordered Sig/Olman Route PRN Reason Start Time Stop Time Status Last Admin Dose Admin Ceftriaxone Sodium (Rocephin) 1 gm Q24H IVP 09/29/21 19:00 09/29/21 19:00 Pantoprazole Sodium (PROTONIX VIAL for IV PUSH) 40 mg DAILYAC IVP 09/29/21 12:00 09/30/21 09:08 Sodium Chloride 1,000 ml @ 100 mls/hr Q10H IV 09/30/21 09:15 09/30/21 09:15 Justifications for Admission Other Justification JOEY BAXTER III DO Sep 30, 2021 10:46
--- NOTE | 2021-09-30 11:30 | PDOC ---
Date of Service: DATE: 09/30/21 TIME: 11:24 Subjective: Subjective: "I'm looking for something but I don't know what it is." Objective: Objective: D/w nurse - no bleeding/no stools, does c/o leg pain. Vital Signs: Vital Signs Date Time Temp Pulse Resp B/P (MAP) Pulse Ox O2 Delivery O2 Flow Rate FiO2 09/30/21 11:04 65 16 113/50 97 Room Air 09/30/21 10:56 3.0 09/30/21 07:00 97.0 97.0 Labs: Laboratory Tests Test 09/30/21 05:10 White Blood Count 9.0 x10^3/uL Red Blood Count 3.28 x10^6/uL Hemoglobin 7.9 g/dL Hematocrit 24.5 % Mean Corpuscular Volume 75 fL Mean Corpuscular Hemoglobin 24 pg Mean Corpuscular Hemoglobin Concent 32 g/dL Red Cell Distribution Width 23.7 % Platelet Count 282 x10^3/uL Sodium Level 143 mmol/L Potassium Level 3.7 mmol/L Chloride Level 109 mmol/L Carbon Dioxide Level 21 mmol/L Anion Gap 13 Blood Urea Nitrogen 74 mg/dL Creatinine 1.9 mg/dL Estimated GFR (Cockcroft-Gault) 34.2 BUN/Creatinine Ratio 39 Glucose Level 90 mg/dL Calcium Level 6.9 mg/dL Total Bilirubin 0.4 mg/dL Aspartate Amino Transf (AST/SGOT) 347 U/L Alanine Aminotransferase (ALT/SGPT) 256 U/L Alkaline Phosphatase 85 U/L Total Protein 4.7 g/dL Albumin 2.0 g/dL Albumin/Globulin Ratio 0.7 PE: GEN: chronically ill LUNGS: CTAB HEART: RRR ABD: initially groaned when I palpated abdomen - unable to recreate - he still maintains no abdominal pain NEURO/PSYCH: less communicative today A/P: Diarrhea/hematochezia - no recurrence, enteric panel negative, C Diff uncollected Microcytic anemia - stable after transfusions PAD s/p recent stent - Xarelto held Elevated AST and ALT - better ONUR, elevated CK - per Dr. Avalos S/p colon resection for diverticular disease -- Tolerating water without recurrent bleeding, try full liquids, PO PPI. Difficult situation w/ PAd/recent stent - Xarelto held for bleeding - will d/w Dr. Garcia timing for restarting. Justicifation of Admission Dx: Justifications for Admission: Justification of Admission Dx: Yes CASA RICH Sep 30, 2021 11:30
--- NOTE | 2021-09-30 14:33 | NUR ---
SS following up with discharge planning. SS reviewed pt chart and discussed with pt RN. Pt is currently on room air. Pt on IV Rocephin and Dilaudid PRN. GI following. Vascular and Wound Care consulted. SS will continue to follow for discharge planning.
[2021-09-30] MEDS ORDERED: HYDROmorphone 2 MG/ML INJ. IVP PRN (14:45)
[2021-09-30] MEDS: ACETAMINOPHEN 325 MG TABLET. PO PRN (17:39)
[2021-09-30] MEDS: cefTRIAXone IV Push 1 GM VIAL. IVP SCH (19:54)
--- NOTE | 2021-09-30 20:31 | PDOC2 ---
CONSULT Date of Service Date of Service DATE: 09/30/21 TIME: 20:19 Referring Physician Referring Physician: Dr. Huston Identification/Chief Complaint Chief Complaint GI bleeding History of Present Illness Reason for Visit: Here is this is an 81-year-old male was admitted with GI bleeding initially to the ICU. He received 4 units of blood with initial hemoglobin less than 5. He has since stabilized and transferred to the floor. Of note 1 week a week ago he underwent a left SFA stent performed at [facility] this was done per his report due to rest pain and tissue loss involving his left first toe. He also reports that he had a second planned procedure this week that he has yet to reschedule to perform further revascularization. He also reports that they are planning likely first toe amputation following his revascularization. He was on Xarelto and aspirin prior to admission. He currently denies any significant rest pain in the left foot although does report intermittent rest pain in the left first toe. He denies any recent worsening of his symptoms. He is significantly hard of hearing which does limit history on this visit. Past Medical History Cardiovascular: HTN Pulmonary: COPD Past Surgical History Past Surgical History: Cholecystectomy, Hernia Repair (x2), Total hip replacement, Colon Resection (03/2021) Family History Family History: No Significant, Hypertension Social History 1 pack per day ALCOHOL: none Drugs: None Current Medications Current Medications Current Medications Sodium Chloride 1,000 ml @ 1,000 mls/hr 1X ONCE IV Last administered on 09/28/21at 16:59; Start 09/28/21 at 17:00; Stop 09/28/21 at 17:59; Status DC Fentanyl Citrate (Fentanyl 2ml Vial) 75 mcg 1X ONCE IVP Last administered on 09/28/21at 17:51; Start 09/28/21 at 17:45; Stop 09/28/21 at 17:46; Status DC Ondansetron HCl (Zofran) 4 mg 1X ONCE IV Last administered on 09/28/21at 19:00; Start 09/28/21 at 18:00; Stop 09/28/21 at 18:01; Status DC Sodium Chloride 1,000 ml @ 1,000 mls/hr 1X ONCE IV Last administered on at 19:00; Start 09/28/21 at 19:00; Stop 09/28/21 at 19:59; Status DC Pantoprazole Sodium (PROTONIX VIAL for IV PUSH) 80 mg 1X ONCE IVP Last administered on 09/28/21at 19:00; Start 09/28/21 at 19:00; Stop 09/29/21 at 11:23; Status DC Pantoprazole Sodium 80 mg/ Sodium Chloride 100 ml @ 10 mls/hr Q10H IV Last administered on 09/29/21at 06:29; Start 09/28/21 at 19:00; Stop 09/29/21 at 11:24; Status DC Ceftriaxone Sodium (Rocephin) 1 gm 1X ONCE IVP Last administered on 09/28/21at 23:43; Start 09/28/21 at 19:15; Stop 09/28/21 at 19:16; Status DC Ondansetron HCl (Zofran) 4 mg PRN Q8HRS PRN IVP NAUSEA/VOMITING; Start 09/28/21 at 20:00; Stop 09/28/21 at 21:45; Status DC Fentanyl Citrate (Fentanyl 2ml Vial) 50 mcg PRN Q1HR PRN IVP PAIN Last administered on 09/30/21at 14:24; Start 09/28/21 at 20:00; Stop 09/30/21 at 14:40; Status DC Sodium Chloride 1,000 ml @ 75 mls/hr [id number] IV Last administered on 09/29/21at 14:04; Start 09/28/21 at 20:00; Stop 09/29/21 at 19:59; Status DC Bisacodyl (Dulcolax Supp) 10 mg PRN DAILY PRN OK CONSTIPATION; Start 09/28/21 at 20:15 Acetaminophen (Tylenol Supp) 650 mg PRN Q6HRS PRN OK MILD PAIN / TEMP > 100.3'F; Start 09/28/21 at 20:15 Dexmedetomidine HCl 400 mcg/ Sodium Chloride 100 ml @ 3.305 mls/ hr CONT PRN IV PER PROTOCOL Last administered on 09/29/21at 06:29; Start 09/28/21 at 21:45 Sodium Chloride 500 ml @ 500 mls/hr 1X PRN PRN IV SEE COMMENTS; Start 09/28/21 at 21:45 Atropine Sulfate (ATROPINE 0.5mg SYRINGE) 0.5 mg PRN Q5MIN PRN IV SEE COMMENTS; Start 09/28/21 at 21:45 Ondansetron HCl (Zofran) 4 mg PRN Q4HRS PRN IVP NAUSEA/VOMITING 1ST CHOICE; Start 09/28/21 at 21:45 Nicotine (Nicoderm Cq 21mg) 1 patch PRN DAILY PRN TD SMOKING CESSATION; Start 09/28/21 at 22:30 Ceftriaxone Sodium (Rocephin) 1 gm Q24H IVP Last administered on 09/30/21at 19:54; Start 09/29/21 at 19:00 Albuterol Sulfate (Ventolin Neb Soln) 2.5 mg PRN Q4HRS PRN NEB SHORTNESS OF BREATH; Start 09/28/21 at 22:30 Guaifenesin (Robitussin Dm) 10 ml PRN Q6HRS PRN PO COUGH; Start 09/28/21 at 22:30 Norepinephrine Bitartrate 8 mg/ Dextrose 258 ml @ 12.79 mls/ hr CONT PRN IV PER PROTOCOL Last administered on 09/28/21at 23:35; Start 09/28/21 at 23:30 Pantoprazole Sodium (PROTONIX VIAL for IV PUSH) 40 mg DAILYAC IVP Last administered on 09/30/21at 09:08; Start 09/29/21 at 12:00; Stop 09/30/21 at 11:31; Status DC Sodium Chloride 1,000 ml @ 100 mls/hr Q10H IV Last administered on 09/30/21at 19:15; Start 09/30/21 at 09:15 Pantoprazole Sodium (Protonix) 40 mg DAILYAC PO ; Start 10/01/21 at 07:30 Hydromorphone HCl (Dilaudid) 2 mg PRN Q2HR PRN IVP PAIN; Start 09/30/21 at 14:45; Stop 09/30/21 at 15:22; Status DC Fentanyl Citrate (Fentanyl 2ml Vial) 75 mcg PRN Q2HR PRN IVP PAIN Last administered on 09/30/21at 16:35; Start 09/30/21 at 14:45 Hydromorphone HCl (Dilaudid) 1 mg PRN Q2HR PRN IVP PAIN; Start 09/30/21 at 15:30 Multivitamins (Thera M Plus) 1 tab DAILY PO ; Start 10/01/21 at 09:00 Ascorbic Acid (Vitamin C) 1,000 mg DAILY PO ; Start 10/01/21 at 09:00 Acetaminophen (Tylenol) 650 mg PRN Q6HRS PRN PO MILD PAIN / TEMP > 100.3'F Last administered on 09/30/21at 17:39; Start 09/30/21 at 17:15 Active Scripts Active Pantoprazole Sodium (Pantoprazole Sodium) 40 Mg Tablet.dr 40 Mg PO DAILYAC 30 Days Reported Celebrex (Celecoxib) 200 Mg Capsule 200 Mg PO BID 30 Days Trazodone Hcl 100 Mg Tablet 100 Mg PO HS Lisinopril-Hctz 20-12.5 Mg Tab (Lisinopril/Hydrochlorothiazide) 1 Each Tablet 1 Tab PO DAILY Fluticasone Propionate Nasal [place] (Fluticasone Propionate) 16 Gm [place].susp 1 [place] BAL DAILY Sertraline Hcl 100 Mg Tablet 1.5 Tab PO DAILY Symbicort 160-4.5 Mcg Inhaler (Budesonide/Formoterol Fumarate) 10.2 Gm Hfa.aer.ad 2 Puff IH BID Allergies Allergies: Coded Allergies: No Known Drug Allergies (Unverified , 09/28/21) ROS General: No: Chills, Night Sweats Eyes: No Loss of vision HEENT: YES: Hearing change Respiratory: YES: SOB with excertion; No: Hemoptysis Cardiovascular: No Chest Pain Gastrointestinal: Yes Melena; No Vomiting Genitourinary: No Hematuria Musculoskeletal: Yes Joint Stiffness Neurological: No Dizziness, No Headaches Skin: Yes Hair Changes, Yes Nail Changes Physical Exam General: Alert, Cooperative, No acute distress HEENT: Atraumatic, PERRLA Lungs: Normal air movement, Other (Nonlabored respirations) Heart: Regular rate, Other (2+ femoral pulses bilaterally 1+ left popliteal pulse PT signal is monophasic on the left. There is a strong monophasic left popliteal signal that is easily appreciable.) Abdomen: Soft, No tenderness Extremities: Other (There is evidence of pallor of the first through third toes and there is an area of cyanosis involving the first metatarsophalangeal joint. There is a small superficial plantar ulceration overlying the left first metatarsophalangeal joint.) Neuro: Normal speech, Sensation intact Psych/Mental Status: Mental status NL MUSCULOSKELETAL: Other (There is no palpable fluid collection or mass within the popliteal fossa) Vitals VITALS Vital Signs Date Time Temp Pulse Resp B/P (MAP) Pulse Ox O2 Delivery O2 Flow Rate FiO2 09/30/21 17:09 89 Room Air 09/30/21 16:35 3.0 09/30/21 16:03 98.1 80 16 118/68 98.1 Labs Labs Laboratory Tests Test 09/28/21 21:38 09/28/21 23:55 09/29/21 05:30 09/30/21 05:10 Lactic Acid Level 12.9 mmol/L (0.4-2.0) White Blood Count 14.6 x10^3/uL (4.0-11.0) 11.3 x10^3/uL (4.0-11.0) 9.0 x10^3/uL (4.0-11.0) Red Blood Count 2.56 x10^6/uL (4.30-5.70) 3.38 x10^6/uL (4.30-5.70) 3.28 x10^6/uL (4.30-5.70) Hemoglobin 5.6 g/dL (13.0-17.5) 8.0 g/dL (13.0-17.5) 7.9 g/dL (13.0-17.5) Hematocrit 19.1 % (39.0-53.0) 25.5 % (39.0-53.0) 24.5 % (39.0-53.0) Mean Corpuscular Volume 74 fL (79-100) 76 fL (79-100) 75 fL (79-100) Mean Corpuscular Hemoglobin 22 pg (25-35) 24 pg (25-35) 24 pg (25-35) Mean Corpuscular Hemoglobin Concent 29 g/dL (31-37) 31 g/dL (31-37) 32 g/dL (31-37) Red Cell Distribution Width 23.0 % (11.5-14.5) 23.0 % (11.5-14.5) 23.7 % (11.5-14.5) Platelet Count 374 x10^3/uL (140-400) 308 x10^3/uL (140-400) 282 x10^3/uL (140-400) Sodium Level 146 mmol/L (136-145) 145 mmol/L (136-145) 143 mmol/L (136-145) Potassium Level 5.9 mmol/L (3.5-5.1) 5.0 mmol/L (3.5-5.1) 3.7 mmol/L (3.5-5.1) Chloride Level 110 mmol/L (98-107) 113 mmol/L (98-107) 109 mmol/L (98-107) Carbon Dioxide Level 16 mmol/L (21-32) 20 mmol/L (21-32) 21 mmol/L (21-32) Anion Gap 20 (6-14) 12 (6-14) 13 (6-14) Blood Urea Nitrogen 106 mg/dL (8-26) 101 mg/dL (8-26) 74 mg/dL (8-26) Creatinine 2.9 mg/dL (0.7-1.3) 2.5 mg/dL (0.7-1.3) 1.9 mg/dL (0.7-1.3) Estimated GFR (Cockcroft-Gault) 21.0 24.9 34.2 Glucose Level 104 mg/dL (70-99) 124 mg/dL (70-99) 90 mg/dL (70-99) Calcium Level 7.4 mg/dL (8.5-10.1) 7.2 mg/dL (8.5-10.1) 6.9 mg/dL (8.5-10.1) Troponin I High Sensitivity 290 ng/L (4-75) Neutrophils (%) (Auto) 93 % (31-73) Lymphocytes (%) (Auto) 2 % (24-48) Monocytes (%) (Auto) 4 % (0-9) Eosinophils (%) (Auto) 0 % (0-3) Basophils (%) (Auto) 0 % (0-3) Neutrophils # (Auto) 10.5 x10^3/uL (1.8-7.7) Lymphocytes # (Auto) 0.3 x10^3/uL (1.0-4.8) Monocytes # (Auto) 0.5 x10^3/uL (0.0-1.1) Eosinophils # (Auto) 0.0 x10^3/uL (0.0-0.7) Basophils # (Auto) 0.0 x10^3/uL (0.0-0.2) BUN/Creatinine Ratio 40 (6-20) 39 (6-20) Total Bilirubin 0.4 mg/dL (0.2-1.0) 0.4 mg/dL (0.2-1.0) Aspartate Amino Transf (AST/SGOT) 698 U/L (15-37) 347 U/L (15-37) Alanine Aminotransferase (ALT/SGPT) 353 U/L (16-63) 256 U/L (16-63) Alkaline Phosphatase 84 U/L (46-116) 85 U/L (46-116) Creatine Kinase 2195 U/L (39-308) Total Protein 5.0 g/dL (6.4-8.2) 4.7 g/dL (6.4-8.2) Albumin 2.4 g/dL (3.4-5.0) 2.0 g/dL (3.4-5.0) Albumin/Globulin Ratio 0.9 (1.0-1.7) 0.7 (1.0-1.7) Laboratory Tests Test 09/30/21 05:10 White Blood Count 9.0 x10^3/uL (4.0-11.0) Red Blood Count 3.28 x10^6/uL (4.30-5.70) Hemoglobin 7.9 g/dL (13.0-17.5) Hematocrit 24.5 % (39.0-53.0) Mean Corpuscular Volume 75 fL (79-100) Mean Corpuscular Hemoglobin 24 pg (25-35) Mean Corpuscular Hemoglobin Concent 32 g/dL (31-37) Red Cell Distribution Width 23.7 % (11.5-14.5) Platelet Count 282 x10^3/uL (140-400) Sodium Level 143 mmol/L (136-145) Potassium Level 3.7 mmol/L (3.5-5.1) Chloride Level 109 mmol/L (98-107) Carbon Dioxide Level 21 mmol/L (21-32) Anion Gap 13 (6-14) Blood Urea Nitrogen 74 mg/dL (8-26) Creatinine 1.9 mg/dL (0.7-1.3) Estimated GFR (Cockcroft-Gault) 34.2 BUN/Creatinine Ratio 39 (6-20) Glucose Level 90 mg/dL (70-99) Calcium Level 6.9 mg/dL (8.5-10.1) Total Bilirubin 0.4 mg/dL (0.2-1.0) Aspartate Amino Transf (AST/SGOT) 347 U/L (15-37) Alanine Aminotransferase (ALT/SGPT) 256 U/L (16-63) Alkaline Phosphatase 85 U/L (46-116) Total Protein 4.7 g/dL (6.4-8.2) Albumin 2.0 g/dL (3.4-5.0) Albumin/Globulin Ratio 0.7 (1.0-1.7) Images Images Ultrasound reviewed showed a patent SFA stent with evidence of monophasic waveforms and distal tibial occlusions. Assessment/Plan Assessment/Plan 1. Peripheral toe disease, chronic limb threatening ischemia, left lower extremity 2. Left plantar ulceration superficial 3. Tobacco abuse 4. GI bleed Discussed with the patient he plans to reschedule his further procedures with [facility] and he has been up please the care he has received there so far, the stent he he had placed there is patent as evidenced by ultrasound and on examination.. He has evidence of diffuse longstanding peripheral arterial disease with chronic limb threatening ischemia of the left lower extremity. He understands that he has a high risk of amputation without further intervention. He would prefer to continue his care with [facility] as they have been planning a second stage revascularization procedure as well as per his report possible toe amputation following revascularization. There is no evidence of acute embolism or thrombosis. I strongly recommended to the patient that he stop smoking. Patient was appreciative of the conversation should there be any future questions or concerns please do not hesitate to contact us. MADISON CRESPO MD Sep 30, 2021 20:31
[2021-10-01 03:10] VITALS: BP 138/54
[2021-10-01] MEDS: IV NORMAL SALINE 1000ML BAG 1,000 ML IV SCH ×2 (05:15→13:35)
[2021-10-01 06:12] LABS: HEMATOCRIT 27.2 % (39.0-53.0); HEMOGLOBIN 8.7 g/dL (13.0-17.5); RED BLOOD COUNT 3.63 x10^6/uL (4.30-5.70); RED CELL DISTRIBUTION WIDTH 24.4 % (11.5-14.5); WHITE BLOOD COUNT 10.7 x10^3/uL (4.0-11.0)
[2021-10-01 06:20] LABS: ALBUMIN 2.2 g/dL (3.4-5.0); ALBUMIN/GLOBULIN RATIO 0.7 (1.0-1.7); CALCIUM 7.3 mg/dL (8.5-10.1); CREATININE 1.6 mg/dL (0.7-1.3); GFR 41.7; POTASSIUM 3.8 mmol/L (3.5-5.1); TOTAL BILIRUBIN 0.5 mg/dL (0.2-1.0); TOTAL PROTEIN 5.4 g/dL (6.4-8.2)
[2021-10-01 07:59] VITALS: BP 142/68
[2021-10-01] MEDS: PANTOPRAZOLE 40 MG TABLET.DR. PO SCH (08:19)
[2021-10-01] MEDS: MULTIVITAMIN with MINERAL TABLET. PO SCH (08:19)
[2021-10-01] MEDS: ASCORBIC ACID 1,000 MG TABLET PO SCH (08:19)
[2021-10-01] MEDS: ACETAMINOPHEN 325 MG TABLET. PO PRN (08:20)
--- NOTE | 2021-10-01 09:03 | PDOC ---
[employer] PROGRESS NOTE Date of Service DOS: DATE: 10/01/21 TIME: 09:01 Chief Complaint Chief Complaint GI bleed (hemoglobin was down to 4.8 got 4 units) Chronic anticoagulation on Xarelto Recent femoral stent placed in February [facility] COPD Hypertension Arthritis Depression Anxiety GERD Allergic rhinitis Cholecystectomy Hip replacement Continued tobacco abuse Hip repair Hard of hearing Diverticulosis (s/p bowel resection 03/2021) History of Present Illness History of Present Illness Mr Dumont is an 81yo male with PMHx hard of hearing, smoker, COPD, diverticulosis (s/p bowel resection 03/2021), PAD who presents with abdominal pain, nausea, vomiting and GI bleeding. Has had nausea and vomiting and diarrhea with some blood in his stool for the past 24 hours prior to arrival and now with abdominal pain. Went to his primary care doctor's office Dr. Muñoz and was sent via EMS directly to the ED. He notes one bloody bowel movement and now is sharp abdominal pain that is occasionally stabbing. He notes he thought this problem was taken care of when he had colon resection for diverticulosis in March 2021 ([facility]). He notes associated fatigue and shortness of breath. No chest pain. He notes on 09/23/2021 he went to [facility] and had an SFA stent placed and was recently started on Xarelto after this. He notes he has follow-up vascular surgery in 1 week. Patient has history of peripheral artery disease I did recently undergo an femoral stent placement. He does complain also of pain in the left foot due to known PAD. Patient reports he has pending additional therapy or stenting scheduled for next week. Today, he complains of abdominal pain and lower GI bleeding. Denies fever. No chest pain or shortness of breath. Seen in ED on 09/17/2021 [place] [facility] in [place] and CR was 1.4 at that time Hb was 7.5. He was given antibiotics for left great toe cellulitis and instructed to f/u with vascular surgery as scheduled. Here in ED noted with WBC 14.8, Hb 4.8, MCV 71, platelets 596, NA 141, K5.6, BUN 103, CR 3, glucose 92, lactic acid 8.5, calcium 7.8, bilirubin 0.4, AST 63, ALT 38, alkaline phosphatase 82, high-sensitivity troponin is 159, NT proBNP is 1994, albumin 2.5, fecal occult blood positive, INR 1.6. LLE arterial doppler Left leg SFA stent patent. Nonvisualization of dorsalis pedis and peroneal artery with occlusion of these vessels not excluded given the lack of visualization. 53 x 14 mm complex fluid in the popliteal fossa. CT abdomen pelvis without contrast with no SBO and left lower quadrant anas tomosis with minimal diverticular burden and nonfocal attenuation mesentery possible edema. Admitted to ICU for further care. 09/29: Patient seen and examined in the ICU. Discussed with RN. Chart reviewed 09/30: Patient seen and examined in the ICU. He seems pleasantly confused. Weak and hard of hearing. Hemoglobin at 7.9 today. His pressure was running a little low. We have started some normal saline at 100 cc an hour. Vascular surgery consulted. 10/01: LFTs improving CR down to 1.6, BUN 65, WBC 8.7. Did have some small brown emesis after pills this morning. Feels about the same. He is asking if he can have his bandage taken off his left great toe. Vitals/I&O Vitals/I&O: Vital Signs Date Time Temp Pulse Resp B/P (MAP) Pulse Ox O2 Delivery O2 Flow Rate FiO2 10/01/21 03:10 97.5 81 18 138/54 (82) 92 Room Air 97.5 09/30/21 16:35 3.0 I & O 09/30/21 09/30/21 10/01/21 15:00 23:00 07:00 Intake Total 240 ml Output Total 375 ml 200 ml 900 ml Balance -375 ml 40 ml -900 ml Physical Exam General: Alert, Cooperative, No acute distress Heart: Regular rate, Other (2+ femoral pulses bilaterally 1+ left popliteal pu lse PT signal is monophasic on the left. There is a strong monophasic left popliteal signal that is easily appreciable.) Lungs: Wheezing Abdomen: Soft, No tenderness Extremities: Other (There is evidence of pallor of the first through third toes and there is an area of cyanosis involving the first metatarsophalangeal joint. There is a small superficial plantar ulceration overlying the left first metatarsophalangeal joint.) Skin: No rashes Labs Labs: Laboratory Tests Test 10/01/21 05:35 White Blood Count 10.7 x10^3/uL (4.0-11.0) Red Blood Count 3.63 x10^6/uL (4.30-5.70) Hemoglobin 8.7 g/dL (13.0-17.5) Hematocrit 27.2 % (39.0-53.0) Mean Corpuscular Volume 75 fL (79-100) Mean Corpuscular Hemoglobin 24 pg (25-35) Mean Corpuscular Hemoglobin Concent 32 g/dL (31-37) Red Cell Distribution Width 24.4 % (11.5-14.5) Platelet Count 348 x10^3/uL (140-400) Sodium Level 142 mmol/L (136-145) Potassium Level 3.8 mmol/L (3.5-5.1) Chloride Level 110 mmol/L (98-107) Carbon Dioxide Level 20 mmol/L (21-32) Anion Gap 12 (6-14) Blood Urea Nitrogen 65 mg/dL (8-26) Creatinine 1.6 mg/dL (0.7-1.3) Estimated GFR (Cockcroft-Gault) 41.7 BUN/Creatinine Ratio 41 (6-20) Glucose Level 88 mg/dL (70-99) Calcium Level 7.3 mg/dL (8.5-10.1) Total Bilirubin 0.5 mg/dL (0.2-1.0) Aspartate Amino Transf (AST/SGOT) 234 U/L (15-37) Alanine Aminotransferase (ALT/SGPT) 211 U/L (16-63) Alkaline Phosphatase 92 U/L (46-116) Total Protein 5.4 g/dL (6.4-8.2) Albumin 2.2 g/dL (3.4-5.0) Albumin/Globulin Ratio 0.7 (1.0-1.7) Comment Review of Relevant I have reviewed the following items emilio (where applicable) has been applied. Medications: Current Medications Medications (Trade) Dose Ordered Sig/Olman Route PRN Reason Start Time Stop Time Status Last Admin Dose Admin Sodium Chloride 1,000 ml @ 100 mls/hr Q10H IV 09/30/21 09:15 10/01/21 05:15 Pantoprazole Sodium (Protonix) 40 mg DAILYAC PO 10/01/21 07:30 10/01/21 08:19 Fentanyl Citrate (Fentanyl 2ml Vial) 75 mcg PRN Q2HR PRN IVP PAIN 09/30/21 14:45 09/30/21 16:35 Multivitamins (Thera M Plus) 1 tab DAILY PO 10/01/21 09:00 10/01/21 08:19 Ascorbic Acid (Vitamin C) 1,000 mg DAILY PO 10/01/21 09:00 10/01/21 08:19 Acetaminophen (Tylenol) 650 mg PRN Q6HRS PRN PO MILD PAIN / TEMP > 100.3'F 09/30/21 17:15 10/01/21 08:20 Justifications for Admission Other Justification JOSE POLLARD MD Oct 01, 2021 09:03
[2021-10-01] MEDS: fentaNYL PF VIAL 100 MCG/2 ML VIAL IVP PRN ×2 (10:27→20:09)
[2021-10-01 11:00] VITALS: BP 150/64
--- NOTE | 2021-10-01 11:30 | NUR ---
Wound Care Wound Type/Assessment: patient seen per wound care consult. see wound assessment. patient requested no dressing at this time, d/t pain. patient currently being seen by a vascular team, wound care will continue to f/u for possible changes.
--- NOTE | 2021-10-01 12:55 | NUR ---
SS following up with discharge planning. SS reviewed pt chart and discussed with pt RN. Pt is currently on room air. Hemoglobin improving. Pt on IV Rocephin. PT/OT ordered. SS will continue to follow for discharge planning.
[2021-10-01 15:17] VITALS: BP 150/75
[2021-10-01 19:00] VITALS: BP 152/71
[2021-10-01] MEDS: cefTRIAXone IV Push 1 GM VIAL. IVP SCH (20:08)
[2021-10-01] MEDS: LACTOBACILLUS RHAMNOSUS GG 1 CAPSULE. PO SCH (20:09)
[2021-10-01 23:00] VITALS: BP 148/62
[2021-10-02] MEDS: IV NORMAL SALINE 1000ML BAG 1,000 ML IV SCH ×3 (01:15→21:15)
[2021-10-02 03:00] VITALS: BP 136/58
[2021-10-02 07:00] VITALS: BP 169/64
[2021-10-02] MEDS: ASCORBIC ACID 1,000 MG TABLET PO SCH (08:02)
[2021-10-02] MEDS: LACTOBACILLUS RHAMNOSUS GG 1 CAPSULE. PO SCH ×2 (08:02→22:26)
[2021-10-02] MEDS: MULTIVITAMIN with MINERAL TABLET. PO SCH (08:02)
[2021-10-02] MEDS: PANTOPRAZOLE 40 MG TABLET.DR. PO SCH (08:02)
[2021-10-02] MEDS: HYDROmorphone 2 MG/ML INJ. IVP PRN ×2 (08:11→18:35)
--- NOTE | 2021-10-02 10:21 | PDOC ---
Date of Service: DATE: 10/02/21 TIME: 10:12 Subjective: Subjective: Pt seen w/ Dr. Garcia this morning. Says he's okay. Objective: Objective: 1 stool charted today. Reviewed notes - "brown emesis" yesterday. D/w nurse - no recurrent vomiting, had a stool overnight (not bloody), swabbed for COVID pending DC recs (?SNU) Reviewed vascular note. C Diff uncollected. Looks like advanced to regular diet. Vital Signs: Vital Signs Date Time Temp Pulse Resp B/P (MAP) Pulse Ox O2 Delivery O2 Flow Rate FiO2 10/02/21 08:45 Nasal Cannula 10/02/21 07:00 97.5 83 18 169/64 (99) 95 2.0 97.5 PE: GEN: NAD LUNGS: room air, clear ABD: S/ND/NT EXTREMITY/SKIN: left toe purplish w/ wounds NEURO/PSYCH: A & O 3 - takes awhile to find words A/P: Diarrhea/hematochezia, vomiting - resolved Microcytic anemia - improved 10/01/21 (Hgb 8.7 then) PAD s/p recent stent - Xarelto held - defer to primary/vascular Elevated CK, ONUR, elevated AST and ALT - Cr and LFTs better (checked 10/01/21) S/p colon resection for diverticular disease -- Improved stable GI-mccurdy. No plans for endoscopy at this time. Continue PPI. Justicifation of Admission Dx: Justifications for Admission: Justification of Admission Dx: Yes CASA RICH Oct 02, 2021 10:21
[2021-10-02 11:00] VITALS: BP 144/50
[2021-10-02 11:28] LABS: HEMATOCRIT 31.2 % (39.0-53.0); HEMOGLOBIN 9.8 g/dL (13.0-17.5)
--- NOTE | 2021-10-02 12:30 | PDOC ---
[employer] PROGRESS NOTE Date of Service DOS: DATE: 10/02/21 TIME: 12:26 Chief Complaint Chief Complaint GI bleed (hemoglobin was down to 4.8 got 4 units) Chronic anticoagulation on Xarelto Recent femoral stent placed in February [facility] COPD Hypertension Arthritis Depression Anxiety GERD Allergic rhinitis Cholecystectomy Hip replacement Continued tobacco abuse Hip repair Hard of hearing Diverticulosis (s/p bowel resection 03/2021) History of Present Illness History of Present Illness Mr Dumont is an 81yo male with PMHx hard of hearing, smoker, COPD, diverticulosis (s/p bowel resection 03/2021), PAD who presents with abdominal pain, nausea, vomiting and GI bleeding. Has had nausea and vomiting and diarrhea with some blood in his stool for the past 24 hours prior to arrival and now with abdominal pain. Went to his primary care doctor's office Dr. Muñoz and was sent via EMS directly to the ED. He notes one bloody bowel movement and now is sharp abdominal pain that is occasionally stabbing. He notes he thought this problem was taken care of when he had colon resection for diverticulosis in March 2021 ([facility]). He notes associated fatigue and shortness of breath. No chest pain. He notes on 09/23/2021 [facility] and was recently started on Xarelto after this. He notes he has follow-up vascular surgery in 1 week. Patient has history of peripheral artery disease I did recently undergo an femoral stent placement. He does complain also of pain in the left foot due to known PAD. Patient reports he has pending additional therapy or stenting scheduled for next week. Today, he complains of abdominal pain and lower GI bleeding. Denies fever. No chest pain or shortness of breath. Seen in ED on 09/17/2021 [facility] in [place] and CR was 1.4 at that time Hb was 7.5. He was given antibiotics for left great toe cellulitis and instructed to f/u with vascular surgery as scheduled. Here in ED noted with WBC 14.8, Hb 4.8, MCV 71, platelets 596, NA 141, K5.6, BUN 103, CR 3, glucose 92, lactic acid 8.5, calcium 7.8, bilirubin 0.4, AST 63, ALT 38, alkaline phosphatase 82, high-sensitivity troponin is 159, NT proBNP is 1994, albumin 2.5, fecal occult blood positive, INR 1.6. LLE arterial doppler Left leg SFA stent patent. Nonvisualization of dorsalis pedis and peroneal artery with occlusion of these vessels not excluded given the lack of visualization. 53 x 14 mm complex fluid in the popliteal fossa. CT abdomen pelvis without contrast with no SBO and left lower quadrant anas tomosis with minimal diverticular burden and nonfocal attenuation mesentery possible edema. Admitted to ICU for further care. 09/29: Patient seen and examined in the ICU. Discussed with RN. Chart reviewed 09/30: Patient seen and examined in the ICU. He seems pleasantly confused. Weak and hard of hearing. Hemoglobin at 7.9 today. His pressure was running a little low. We have started some normal saline at 100 cc an hour. Vascular surgery consulted. 10/01: LFTs improving CR down to 1.6, BUN 65, WBC 8.7. Did have some small brown emesis after pills this morning. Feels about the same. He is asking if he can have his bandage taken off his left great toe. 10/02: Hb 9.8. Left great toe and ulcer demarcating. Therapies recommended SNF. He is amenable to this. Vitals/I&O Vitals/I&O: Vital Signs Date Time Temp Pulse Resp B/P (MAP) Pulse Ox O2 Delivery O2 Flow Rate FiO2 10/02/21 11:00 97.9 77 18 144/50 (81) 92 Nasal Cannula 2.0 97.9 I & O 10/01/21 10/01/21 10/02/21 15:00 23:00 07:00 Intake Total 240 ml 120 ml Output Total 400 ml 1300 ml Balance 240 ml -280 ml -1300 ml Physical Exam General: Alert, Cooperative, No acute distress Heart: Regular rate, Other (2+ femoral pulses bilaterally 1+ left popliteal pulse PT signal is monophasic on the left. There is a strong monophasic left popliteal signal that is easily appreciable.) Lungs: Wheezing Abdomen: Soft, No tenderness Extremities: Other (There is evidence of pallor of the first through third toes and there is an area of cyanosis involving the first metatarsophalangeal joint. There is a small superficial plantar ulceration overlying the left first metatarsophalangeal joint.) Skin: No rashes Labs Labs: Laboratory Tests Test 10/02/21 11:04 Hemoglobin 9.8 g/dL (13.0-17.5) Hematocrit 31.2 % (39.0-53.0) Mean Corpuscular Hemoglobin Concent 32 g/dL (31-37) Iron Level 52 ug/dL (65-175) Total Iron Binding Capacity 350 ug/dL (250-450) Iron Saturation 15 % (15-34) Comment Review of Relevant I have reviewed the following items emilio (where applicable) has been applied. Medications: Current Medications Medications (Trade) Dose Ordered Sig/Olman Route PRN Reason Start Time Stop Time Status Last Admin Dose Admin Lactobacillus Rhamnosus (Culturelle) 1 cap BID PO 10/01/21 21:00 10/02/21 08:02 Justifications for Admission Other Justification JOSE POLLARD MD Oct 02, 2021 12:30
--- NOTE | 2021-10-02 14:58 | NUR ---
SW following. Discussed with RN, pt from home alone (family helps), 2L (does not use oxygen at home), cardiac diet. Therapy recommending SNf. COVID pending for placement. SW to speak with pt Tuesday regarding SNF placement. SW will continue to follow.
[2021-10-02 15:00] VITALS: BP 186/94
[2021-10-02] MEDS: cefTRIAXone IV Push 1 GM VIAL. IVP SCH (18:07)
[2021-10-02 19:00] VITALS: BP 151/69
[2021-10-02 23:00] VITALS: BP 152/72
[2021-10-03 03:00] VITALS: BP 165/74
[2021-10-03] MEDS: IV NORMAL SALINE 1000ML BAG 1,000 ML IV SCH (05:38)
[2021-10-03 07:00] VITALS: BP 160/76
[2021-10-03 07:26] LABS: CALCIUM 7.6 mg/dL (8.5-10.1); GFR 71.7; POTASSIUM 3.7 mmol/L (3.5-5.1)
[2021-10-03 07:27] LABS: HEMATOCRIT 31.2 % (39.0-53.0); HEMOGLOBIN 9.9 g/dL (13.0-17.5); RED BLOOD COUNT 4.17 x10^6/uL (4.30-5.70); RED CELL DISTRIBUTION WIDTH 25.1 % (11.5-14.5); WHITE BLOOD COUNT 7.3 x10^3/uL (4.0-11.0)
[2021-10-03] MEDS: ASCORBIC ACID 1,000 MG TABLET PO SCH (08:52)
[2021-10-03] MEDS: MULTIVITAMIN with MINERAL TABLET. PO SCH (08:52)
[2021-10-03] MEDS: LACTOBACILLUS RHAMNOSUS GG 1 CAPSULE. PO SCH ×3 (08:52→20:48)
[2021-10-03] MEDS: PANTOPRAZOLE 40 MG TABLET.DR. PO SCH (08:52)
[2021-10-03 11:00] VITALS: BP 163/72
--- NOTE | 2021-10-03 11:49 | PDOC ---
[employer] PROGRESS NOTE Date of Service DOS: DATE: 10/03/21 TIME: 11:48 Chief Complaint Chief Complaint GI bleed (hemoglobin was down to 4.8 got 4 units) Chronic anticoagulation on Xarelto Recent femoral stent placed in February [facility] COPD Hypertension Arthritis Depression Anxiety GERD Allergic rhinitis Cholecystectomy Hip replacement Continued tobacco abuse Hip repair Hard of hearing Diverticulosis (s/p bowel resection 03/2021) History of Present Illness History of Present Illness Mr Dumont is an 81yo male with PMHx hard of hearing, smoker, COPD, diverticulosis (s/p bowel resection 03/2021), PAD who presents with abdominal pain, nausea, vomiting and GI bleeding. Has had nausea and vomiting and diarrhea with some blood in his stool for the past 24 hours prior to arrival and now with abdominal pain. Went to his primary care doctor's office Dr. Muñoz and was sent via EMS directly to the ED. He notes one bloody bowel movement and now is sharp abdominal pain that is occasionally stabbing. He notes he thought this problem was taken care of when he had colon resection for diverticulosis in March 2021 ([facility]). He notes associated fatigue and shortness of breath. No chest pain. He notes on 09/23/2021 [facility] placed and was recently started on Xarelto after this. He notes he has follow-up vascular surgery in 1 week. Patient has history of peripheral artery disease I did recently undergo an femoral stent placement. He does complain also of pain in the left foot due to known PAD. Patient reports he has pending additional therapy or stenting scheduled for next week. Today, he complains of abdominal pain and lower GI bleeding. Denies fever. No chest pain or shortness of breath. Seen in ED on 09/17/2021 [place] [facility] in [place] and CR was 1.4 at that time Hb was 7.5. He was given antibiotics for left great toe cellulitis and instructed to f/u with vascular surgery as scheduled. Here in ED noted with WBC 14.8, Hb 4.8, MCV 71, platelets 596, NA 141, K5.6, BUN 103, CR 3, glucose 92, lactic acid 8.5, calcium 7.8, bilirubin 0.4, AST 63, ALT 38, alkaline phosphatase 82, high-sensitivity troponin is 159, NT proBNP is 1994, albumin 2.5, fecal occult blood positive, INR 1.6. LLE arterial doppler Left leg SFA stent patent. Nonvisualization of dorsalis pedis and peroneal artery with occlusion of these vessels not excluded given the lack of visualization. 53 x 14 mm complex fluid in the popliteal fossa. CT abdomen pelvis without contrast with no SBO and left lower quadrant anas tomosis with minimal diverticular burden and nonfocal attenuation mesentery possible edema. Admitted to ICU for further care. 09/29: Patient seen and examined in the ICU. Discussed with RN. Chart reviewed 09/30: Patient seen and examined in the ICU. He seems pleasantly confused. Weak and hard of hearing. Hemoglobin at 7.9 today. His pressure was running a little low. We have started some normal saline at 100 cc an hour. Vascular surgery consulted. 10/01: LFTs improving CR down to 1.6, BUN 65, WBC 8.7. Did have some small brown emesis after pills this morning. Feels about the same. He is asking if he can have his bandage taken off his left great toe. 10/02: Hb 9.8. Left great toe and ulcer demarcating. Therapies recommended SNF. He is amenable to this. 10/03: CR down to 1 COVID-19 PCR negative, Hb stable at 9.9. He is amenable to rehab. His friends have come by today to replace his hearing aids and note that his did pass away on 09/17/2021 and have been in contact with his 5 children. (has 5 step-children as well) Vitals/I&O Vitals/I&O: Vital Signs Date Time Temp Pulse Resp B/P (MAP) Pulse Ox O2 Delivery O2 Flow Rate FiO2 10/03/21 11:00 97.8 90 20 163/72 (102) 94 Nasal Cannula 2.0 97.8 I & O 10/02/21 10/02/21 10/03/21 15:00 23:00 07:00 Intake Total 120 ml 260 ml Output Total 350 ml 200 ml Balance -230 ml 260 ml -200 ml Physical Exam General: Alert, Cooperative, No acute distress Heart: Regular rate, Other (2+ femoral pulses bilaterally 1+ left popliteal pulse PT signal is monophasic on the left. There is a strong monophasic left popliteal signal that is easily appreciable.) Lungs: Wheezing Abdomen: Soft, No tenderness Extremities: Other (There is evidence of pallor of the first through third toes and there is an area of cyanosis involving the first metatarsophalangeal joint. There is a small superficial plantar ulceration overlying the left first metatarsophalangeal joint.) Skin: No rashes Labs Labs: Laboratory Tests Test 10/03/21 06:00 White Blood Count 7.3 x10^3/uL (4.0-11.0) Red Blood Count 4.17 x10^6/uL (4.30-5.70) Hemoglobin 9.9 g/dL (13.0-17.5) Hematocrit 31.2 % (39.0-53.0) Mean Corpuscular Volume 75 fL (79-100) Mean Corpuscular Hemoglobin 24 pg (25-35) Mean Corpuscular Hemoglobin Concent 32 g/dL (31-37) Red Cell Distribution Width 25.1 % (11.5-14.5) Platelet Count 341 x10^3/uL (140-400) Sodium Level 146 mmol/L (136-145) Potassium Level 3.7 mmol/L (3.5-5.1) Chloride Level 109 mmol/L (98-107) Carbon Dioxide Level 25 mmol/L (21-32) Anion Gap 12 (6-14) Blood Urea Nitrogen 29 mg/dL (8-26) Creatinine 1.0 mg/dL (0.7-1.3) Estimated GFR (Cockcroft-Gault) 71.7 Glucose Level 93 mg/dL (70-99) Calcium Level 7.6 mg/dL (8.5-10.1) Comment Review of Relevant I have reviewed the following items emilio (where applicable) has been applied. Justifications for Admission Other Justification JOSE POLLARD MD Oct 03, 2021 11:49
[2021-10-03 15:00] VITALS: BP 146/75
[2021-10-03] MEDS: FLUTICASONE 50MCG/NASAL SPRAY 16GM BOTTLE. NS SCH (18:17)
[2021-10-03] MEDS: cefTRIAXone IV Push 1 GM VIAL. IVP SCH (18:17)
[2021-10-03] MEDS: SERTRALINE 50 MG TABLET. PO SCH (18:17)
[2021-10-03 19:00] VITALS: BP 160/72
[2021-10-03] MEDS: traZODone 100 MG TABLET. PO SCH (21:00)
[2021-10-03] MEDS: BUDESONIDE 0.5 MG/2 ML NEBU. NEB SCH (21:22)
[2021-10-03] MEDS: ALBUTEROL SULFATE 2.5 MG/3 ML NEBU. NEB SCH (21:23)
[2021-10-03 23:14] VITALS: BP 143/58
[2021-10-04 03:09] VITALS: BP 159/72
[2021-10-04 07:00] VITALS: BP 156/69
[2021-10-04] MEDS: ALBUTEROL SULFATE 2.5 MG/3 ML NEBU. NEB SCH ×4 (08:00→20:58)
[2021-10-04] MEDS: BUDESONIDE 0.5 MG/2 ML NEBU. NEB SCH ×2 (08:00→20:58)
[2021-10-04] MEDS: SERTRALINE 50 MG TABLET. PO SCH (08:44)
[2021-10-04] MEDS: ASCORBIC ACID 1,000 MG TABLET PO SCH (08:44)
[2021-10-04] MEDS: fentaNYL PF VIAL 100 MCG/2 ML VIAL IVP PRN (08:44)
[2021-10-04] MEDS: PANTOPRAZOLE 40 MG TABLET.DR. PO SCH (08:44)
[2021-10-04] MEDS: FLUTICASONE 50MCG/NASAL SPRAY 16GM BOTTLE. NS SCH (08:44)
[2021-10-04] MEDS: MULTIVITAMIN with MINERAL TABLET. PO SCH (08:44)
[2021-10-04 10:57] VITALS: BP 142/61
--- NOTE | 2021-10-04 11:03 | PDOC ---
[employer] PROGRESS NOTE Date of Service DOS: DATE: 10/04/21 TIME: 11:01 Chief Complaint Chief Complaint GI bleed (hemoglobin was down to 4.8 got 4 units) Chronic anticoagulation on Xarelto Recent femoral stent placed in February [facility] COPD Hypertension Arthritis Depression Anxiety GERD Allergic rhinitis Cholecystectomy Hip replacement Continued tobacco abuse Hip repair Hard of hearing Diverticulosis (s/p bowel resection 03/2021) History of Present Illness History of Present Illness Mr Dumont is an 81yo male with PMHx hard of hearing, smoker, COPD, diverticulosis (s/p bowel resection 03/2021), PAD who presents with abdominal pain, nausea, vomiting and GI bleeding. Has had nausea and vomiting and diarrhea with some blood in his stool for the past 24 hours prior to arrival and now with abdominal pain. Went to his primary care doctor's office Dr. Muñoz and was sent via EMS directly to the ED. He notes one bloody bowel movement and now is sharp abdominal pain that is occasionally stabbing. He notes he thought this problem was taken care of when he had colon resection for diverticulosis in March 2021 ([facility]). He notes associated fatigue and shortness of breath. No chest pain. He notes on 09/23/2021 [facility] and was recently started on Xarelto after this. He notes he has follow-up vascular surgery in 1 week. Patient has history of peripheral artery disease I did recently undergo an femoral stent placement. He does complain also of pain in the left foot due to known PAD. Patient reports he has pending additional therapy or stenting scheduled for next week. Today, he complains of abdominal pain and lower GI bleeding. Denies fever. No chest pain or shortness of breath. Seen in ED on 09/17/2021 [facility] in [place] and CR was 1.4 at that time Hb was 7.5. He was given antibiotics for left great toe cellulitis and instructed to f/u with vascular surgery as scheduled. Here in ED noted with WBC 14.8, Hb 4.8, MCV 71, platelets 596, NA 141, K5.6, BUN 103, CR 3, glucose 92, lactic acid 8.5, calcium 7.8, bilirubin 0.4, AST 63, ALT 38, alkaline phosphatase 82, high-sensitivity troponin is 159, NT proBNP is 1994, albumin 2.5, fecal occult blood positive, INR 1.6. LLE arterial doppler Left leg SFA stent patent. Nonvisualization of dorsalis pedis and peroneal artery with occlusion of these vessels not excluded given the lack of visualization. 53 x 14 mm complex fluid in the popliteal fossa. CT abdomen pelvis without contrast with no SBO and left lower quadrant anas tomosis with minimal diverticular burden and nonfocal attenuation mesentery possible edema. Admitted to ICU for further care. 09/29: Patient seen and examined in the ICU. Discussed with RN. Chart reviewed 09/30: Patient seen and examined in the ICU. He seems pleasantly confused. Weak and hard of hearing. Hemoglobin at 7.9 today. His pressure was running a little low. We have started some normal saline at 100 cc an hour. Vascular surgery consulted. 10/01: LFTs improving CR down to 1.6, BUN 65, WBC 8.7. Did have some small brown emesis after pills this morning. Feels about the same. He is asking if he can have his bandage taken off his left great toe. 10/02: Hb 9.8. Left great toe and ulcer demarcating. Therapies recommended SNF. He is amenable to this. 10/03: CR down to 1 COVID-19 PCR negative, Hb stable at 9.9. He is amenable to rehab. His friends have come by today to replace his hearing aids and note that his did pass away on 09/17/2021 and have been in contact with his 5 children. (has 5 step-children as well) 10/04: Had some foot pain this morning. No shortness of breath or chest pain. No further GI bleeding at this time. Very weak therapy still recommending SNF on discharge. Vitals/I&O Vitals/I&O: Vital Signs Date Time Temp Pulse Resp B/P (MAP) Pulse Ox O2 Delivery O2 Flow Rate FiO2 10/04/21 10:57 97.9 74 18 142/61 (88) 95 Nasal Cannula 2.0 97.9 I & O 10/03/21 10/03/21 10/04/21 15:00 23:00 07:00 Intake Total 240 ml 240 ml Output Total 150 ml Balance 240 ml 90 ml Physical Exam General: Alert, Cooperative, No acute distress Heart: Regular rate, Other (2+ femoral pulses bilaterally 1+ left popliteal pulse PT signal is monophasic on the left. There is a strong monophasic left popliteal signal that is easily appreciable.) Lungs: Wheezing Abdomen: Soft, No tenderness Extremities: Other (There is evidence of pallor of the first through third toes and there is an area of cyanosis involving the first metatarsophalangeal joint. There is a small superficial plantar ulceration overlying the left first metatarsophalangeal joint.) Skin: No rashes Comment Review of Relevant I have reviewed the following items emilio (where applicable) has been applied. Medications: Current Medications Medications (Trade) Dose Ordered Sig/Olman Route PRN Reason Start Time Stop Time Status Last Admin Dose Admin Fluticasone Propionate (Flonase) 1 spray DAILY NS 10/03/21 18:00 10/04/21 08:44 Budesonide (Pulmicort) 0.5 mg RTBID [facility] 10/03/21 20:00 10/04/21 08:00 Sertraline HCl (Zoloft) 150 mg DAILY PO 10/03/21 18:00 10/04/21 08:44 Albuterol Sulfate (Ventolin Neb Soln) 2.5 mg RTQID [facility] 10/03/21 20:00 10/04/21 08:00 Justifications for Admission Other Justification JOSE POLLARD MD Oct 04, 2021 11:03
[2021-10-04] MEDS: HYDROmorphone 2 MG/ML INJ. IVP PRN ×2 (11:16→16:26)
[2021-10-04 15:00] VITALS: BP 155/61
[2021-10-04] MEDS: cefTRIAXone IV Push 1 GM VIAL. IVP SCH (19:07)
[2021-10-04] MEDS: ACETAMINOPHEN 325 MG TABLET. PO PRN (19:21)
[2021-10-04 19:30] VITALS: BP 175/79
[2021-10-04] MEDS: LACTOBACILLUS RHAMNOSUS GG 1 CAPSULE. PO SCH (20:42)
[2021-10-04] MEDS: traZODone 100 MG TABLET. PO SCH (20:42)
[2021-10-04 23:40] VITALS: BP 134/57
[2021-10-05 03:26] VITALS: BP_SYST 134; BP_SYST 136; BP_DIAS 57; BP_DIAS 58
[2021-10-05 06:44] LABS: CALCIUM 7.5 mg/dL (8.5-10.1); CREATININE 0.9 mg/dL (0.7-1.3); POTASSIUM 3.1 mmol/L (3.5-5.1)
[2021-10-05 06:55] LABS: HEMATOCRIT 30.4 % (39.0-53.0); HEMOGLOBIN 9.4 g/dL (13.0-17.5); RED BLOOD COUNT 3.96 x10^6/uL (4.30-5.70); RED CELL DISTRIBUTION WIDTH 26.3 % (11.5-14.5); WHITE BLOOD COUNT 8.6 x10^3/uL (4.0-11.0)
[2021-10-05 07:00] VITALS: BP 157/61
[2021-10-05] MEDS: ALBUTEROL SULFATE 2.5 MG/3 ML NEBU. NEB SCH ×4 (07:55→18:29)
[2021-10-05] MEDS: BUDESONIDE 0.5 MG/2 ML NEBU. NEB SCH ×2 (07:55→18:29)
[2021-10-05] MEDS: LACTOBACILLUS RHAMNOSUS GG 1 CAPSULE. PO SCH ×2 (08:47→20:46)
[2021-10-05] MEDS: SERTRALINE 50 MG TABLET. PO SCH (08:48)
[2021-10-05] MEDS: ASCORBIC ACID 1,000 MG TABLET PO SCH (08:48)
[2021-10-05] MEDS: FLUTICASONE 50MCG/NASAL SPRAY 16GM BOTTLE. NS SCH (08:48)
[2021-10-05] MEDS: PANTOPRAZOLE 40 MG TABLET.DR. PO SCH (08:48)
[2021-10-05] MEDS: MULTIVITAMIN with MINERAL TABLET. PO SCH (08:48)
[2021-10-05 11:00] VITALS: BP 152/75
--- NOTE | 2021-10-05 11:50 | PDOC ---
Date of Service: DATE: 10/05/21 TIME: 11:46 Objective: Vital Signs: Vital Signs Date Time Temp Pulse Resp B/P (MAP) Pulse Ox O2 Delivery O2 Flow Rate FiO2 10/05/21 11:36 96 Nasal Cannula 2.5 10/05/21 07:00 97.9 77 24 157/61 (93) 97.9 Labs: Laboratory Tests Test 10/04/21 14:30 10/05/21 05:35 Coronavirus (COVID-19)(PCR) Not detected White Blood Count 8.6 x10^3/uL Red Blood Count 3.96 x10^6/uL Hemoglobin 9.4 g/dL Hematocrit 30.4 % Mean Corpuscular Volume 77 fL Mean Corpuscular Hemoglobin 24 pg Mean Corpuscular Hemoglobin Concent 31 g/dL Red Cell Distribution Width 26.3 % Platelet Count 299 x10^3/uL Sodium Level 146 mmol/L Potassium Level 3.1 mmol/L Chloride Level 109 mmol/L Carbon Dioxide Level 30 mmol/L Anion Gap 7 Blood Urea Nitrogen 19 mg/dL Creatinine 0.9 mg/dL Estimated GFR (Cockcroft-Gault) 81.0 Glucose Level 98 mg/dL Calcium Level 7.5 mg/dL PE: GEN: NAD - working w/ therapy when I stopped by - laying in bed, lifting legs LUNGS: NC 2.5L HEART: RR per chart ABD: non-distended NEURO/PSYCH: awake and alert A/P: Diarrhea/hematochezia, vomiting - resolved, getting PPI Microcytic anemia - improved/stable - not iron deficient (results skewed after transfusions?) PAD s/p recent stent - Xarelto held Elevated AST and ALT - improved (checked 10/01/21) S/p colon resection for diverticular disease Hypokalemia - defer to primary COVID negative x 2 -- Stable from GI standpoint. Continue PPI. Justicifation of Admission Dx: Justifications for Admission: Justification of Admission Dx: Yes CASA RICH Oct 05, 2021 11:49
--- NOTE | 2021-10-05 12:30 | PDOC ---
[employer] PROGRESS NOTE Date of Service DOS: DATE: 10/05/21 TIME: 12:29 Chief Complaint Chief Complaint GI bleed (hemoglobin was down to 4.8 got 4 units) Chronic anticoagulation on Xarelto Recent femoral stent placed in February [facility] COPD Hypertension Arthritis Depression Anxiety GERD Allergic rhinitis Cholecystectomy Hip replacement Continued tobacco abuse Hip repair Hard of hearing Diverticulosis (s/p bowel resection 03/2021) History of Present Illness History of Present Illness Mr Dumont is an 81yo male with PMHx hard of hearing, smoker, COPD, diverticulosis (s/p bowel resection 03/2021), PAD who presents with abdominal pain, nausea, vomiting and GI bleeding. Has had nausea and vomiting and diarrhea with some blood in his stool for the past 24 hours prior to arrival and now with abdominal pain. Went to his primary care doctor's office Dr. Muñoz and was sent via EMS directly to the ED. He notes one bloody bowel movement and now is sharp abdominal pain that is occasionally stabbing. He notes he thought this problem was taken care of when he had colon resection for diverticulosis in March 2021 ([facility]). He notes associated fatigue and shortness of breath. No chest pain. He notes on 09/23/2021 [facility] and was recently started on Xarelto after this. He notes he has follow-up vascular surgery in 1 week. Patient has history of peripheral artery disease I did recently undergo an femoral stent placement. He does complain also of pain in the left foot due to known PAD. Patient reports he has pending additional therapy or stenting scheduled for next week. Today, he complains of abdominal pain and lower GI bleeding. Denies fever. No chest pain or shortness of breath. Seen in ED on 09/17/2021 [place] [facility] in [place] and CR was 1.4 at that time Hb was 7.5. He was given antibiotics for left great toe cellulitis and instructed to f/u with vascular surgery as scheduled. Here in ED noted with WBC 14.8, Hb 4.8, MCV 71, platelets 596, NA 141, K5.6, BUN 103, CR 3, glucose 92, lactic acid 8.5, calcium 7.8, bilirubin 0.4, AST 63, ALT 38, alkaline phosphatase 82, high-sensitivity troponin is 159, NT proBNP is 1994, albumin 2.5, fecal occult blood positive, INR 1.6. LLE arterial doppler Left leg SFA stent patent. Nonvisualization of dorsalis pedis and peroneal artery with occlusion of these vessels not excluded given the lack of visualization. 53 x 14 mm complex fluid in the popliteal fossa. CT abdomen pelvis without contrast with no SBO and left lower quadrant anas tomosis with minimal diverticular burden and nonfocal attenuation mesentery possible edema. Admitted to ICU for further care. 09/29: Patient seen and examined in the ICU. Discussed with RN. Chart reviewed 09/30: Patient seen and examined in the ICU. He seems pleasantly confused. Weak and hard of hearing. Hemoglobin at 7.9 today. His pressure was running a little low. We have started some normal saline at 100 cc an hour. Vascular surgery consulted. 10/01: LFTs improving CR down to 1.6, BUN 65, WBC 8.7. Did have some small brown emesis after pills this morning. Feels about the same. He is asking if he can have his bandage taken off his left great toe. 10/02: Hb 9.8. Left great toe and ulcer demarcating. Therapies recommended SNF. He is amenable to this. 10/03: CR down to 1 COVID-19 PCR negative, Hb stable at 9.9. He is amenable to rehab. His friends have come by today to replace his hearing aids and note that his did pass away on 09/17/2021 and have been in contact with his 5 children. (has 5 step-children as well) 10/04: Had some foot pain this morning. No shortness of breath or chest pain. No further GI bleeding at this time. Very weak therapy still recommending SNF on discharge. 10/05/2021 No acute events overnight. Patient seen examined bedside. Resting comfortably. No nausea vomiting episodes. Still on PPI. Pending SNF placement. Patient's chart, labs, images were reviewed and discussed with RN Vitals/I&O Vitals/I&O: Vital Signs Date Time Temp Pulse Resp B/P (MAP) Pulse Ox O2 Delivery O2 Flow Rate FiO2 10/05/21 11:36 96 Nasal Cannula 2.5 10/05/21 07:00 97.9 77 24 157/61 (93) 97.9 I & O 10/04/21 10/04/2110/05/22 15:00 23:00 07:00 Intake Total 100 ml 120 ml Balance 100 ml 120 ml Physical Exam General: Alert, Cooperative, No acute distress Heart: Regular rate, Other (2+ femoral pulses bilaterally 1+ left popliteal pulse PT signal is monophasic on the left. There is a strong monophasic left popliteal signal that is easily appreciable.) Lungs: Wheezing Abdomen: Soft, No tenderness Extremities: Other (There is evidence of pallor of the first through third toes and there is an area of cyanosis involving the first metatarsophalangeal joint. There is a small superficial plantar ulceration overlying the left first metatarsophalangeal joint.) Skin: No rashes Labs Labs: Laboratory Tests Test 10/04/21 14:30 10/05/21 05:35 Coronavirus (COVID-19)(PCR) Not detected (NOT DETECTD) White Blood Count 8.6 x10^3/uL (4.0-11.0) Red Blood Count 3.96 x10^6/uL (4.30-5.70) Hemoglobin 9.4 g/dL (13.0-17.5) Hematocrit 30.4 % (39.0-53.0) Mean Corpuscular Volume 77 fL (79-100) Mean Corpuscular Hemoglobin 24 pg (25-35) Mean Corpuscular Hemoglobin Concent 31 g/dL (31-37) Red Cell Distribution Width 26.3 % (11.5-14.5) Platelet Count 299 x10^3/uL (140-400) Sodium Level 146 mmol/L (136-145) Potassium Level 3.1 mmol/L (3.5-5.1) Chloride Level 109 mmol/L (98-107) Carbon Dioxide Level 30 mmol/L (21-32) Anion Gap 7 (6-14) Blood Urea Nitrogen 19 mg/dL (8-26) Creatinine 0.9 mg/dL (0.7-1.3) Estimated GFR (Cockcroft-Gault) 81.0 Glucose Level 98 mg/dL (70-99) Calcium Level 7.5 mg/dL (8.5-10.1) Comment Review of Relevant I have reviewed the following items emilio (where applicable) has been applied. Justifications for Admission Other Justification MIKI TAN MD Oct 05, 2021 12:30
[2021-10-05] MEDS: POTASSIUM CHLORIDE 20 MEQ TABLET.ER. PO SCH ×2 (14:04→20:47)
[2021-10-05] MEDS: HYDROmorphone 2 MG/ML INJ. IVP PRN (14:04)
[2021-10-05 15:00] VITALS: BP 153/66
[2021-10-05] MEDS: cefTRIAXone IV Push 1 GM VIAL. IVP SCH (18:54)
[2021-10-05 19:55] VITALS: BP 140/71
[2021-10-05] MEDS: traZODone 100 MG TABLET. PO SCH (20:46)
[2021-10-05 23:41] VITALS: BP 136/61
[2021-10-06 03:13] VITALS: BP 145/67
[2021-10-06] MEDS: ALBUTEROL SULFATE 2.5 MG/3 ML NEBU. NEB SCH ×4 (06:10→20:20)
[2021-10-06] MEDS: BUDESONIDE 0.5 MG/2 ML NEBU. NEB SCH ×2 (06:10→20:20)
[2021-10-06 07:00] VITALS: BP 138/60
[2021-10-06] MEDS: PANTOPRAZOLE 40 MG TABLET.DR. PO SCH (08:37)
[2021-10-06] MEDS: SERTRALINE 50 MG TABLET. PO SCH (08:37)
[2021-10-06] MEDS: LACTOBACILLUS RHAMNOSUS GG 1 CAPSULE. PO SCH ×2 (08:37→21:23)
[2021-10-06] MEDS: ASCORBIC ACID 1,000 MG TABLET PO SCH (08:37)
[2021-10-06] MEDS: MULTIVITAMIN with MINERAL TABLET. PO SCH (08:37)
[2021-10-06] MEDS: FLUTICASONE 50MCG/NASAL SPRAY 16GM BOTTLE. NS SCH (08:37)
--- NOTE | 2021-10-06 10:49 | PDOC ---
Date of Service: DATE: 10/06/21 TIME: 10:45 Subjective: Subjective: Left chest hurts when he coughs. "I don't know what I'm here!" Says he was supposed to have leg surgery tomorrow down on [address]. Objective: Vital Signs: Vital Signs Date Time Temp Pulse Resp B/P (MAP) Pulse Ox O2 Delivery O2 Flow Rate FiO2 10/06/21 07:00 98.5 68 18 138/60 (86) 95 Nasal Cannula 2.0 98.5 PE: GEN: appears chronically ill LUNGS: wet cough, bit breathless at times, NC 2L HEART: RR ABD: S/ND/NT NEURO/PSYCH: A & O, speaks quite slowly, seems forgetful A/P: Diarrhea/hematochezia, vomiting - resolved, getting PPI Microcytic anemia - stable, not iron deficient PAD s/p recent stent - Xarelto held S/p colon resection for diverticular disease Cough, COVID negative x 2 -- Stable from GI standpoint, awaiting DC plans. Justicifation of Admission Dx: Justifications for Admission: Justification of Admission Dx: Yes CASA RICH Oct 06, 2021 10:49
[2021-10-06 11:00] VITALS: BP 149/58
--- NOTE | 2021-10-06 13:06 | PDOC ---
[facility] PROGRESS NOTE Date of Service DOS: DATE: 10/06/21 TIME: 13:04 Chief Complaint Chief Complaint GI bleed (hemoglobin was down to 4.8 got 4 units) Chronic anticoagulation on Xarelto Recent femoral stent placed in February [facility] COPD Hypertension Arthritis Depression Anxiety GERD Allergic rhinitis Cholecystectomy Hip replacement Continued tobacco abuse Hip repair Hard of hearing Diverticulosis (s/p bowel resection 03/2021) History of Present Illness History of Present Illness Mr Dumont is an 81yo male with PMHx hard of hearing, smoker, COPD, diverticulosis (s/p bowel resection 03/2021), PAD who presents with abdominal pain, nausea, vomiting and GI bleeding. Has had nausea and vomiting and diarrhea with some blood in his stool for the past 24 hours prior to arrival and now with abdominal pain. Went to his primary care doctor's office Dr. Muñoz and was sent via EMS directly to the ED. He notes one bloody bowel movement and now is sharp abdominal pain that is occasionally stabbing. He notes he thought this problem was taken care of when he had colon resection for diverticulosis in March 2021 ([facility]). He notes associated fatigue and shortness of breath. No chest pain. He notes on 09/23/2021 [facility] and was recently started on Xarelto after this. He notes he has follow-up vascular surgery in 1 week. Patient has history of peripheral artery disease I did recently undergo an femoral stent placement. He does complain also of pain in the left foot due to known PAD. Patient reports he has pending additional therapy or stenting scheduled for next week. Today, he complains of abdominal pain and lower GI bleeding. Denies fever. No chest pain or shortness of breath. Seen in ED on 09/17/2021 [place] [facility] in [place] and CR was 1.4 at that time Hb was 7.5. He was given antibiotics for left great toe cellulitis and instructed to f/u with vascular surgery as scheduled. Here in ED noted with WBC 14.8, Hb 4.8, MCV 71, platelets 596, NA 141, K5.6, BUN 103, CR 3, glucose 92, lactic acid 8.5, calcium 7.8, bilirubin 0.4, AST 63, ALT 38, alkaline phosphatase 82, high-sensitivity troponin is 159, NT proBNP is 1994, albumin 2.5, fecal occult blood positive, INR 1.6. LLE arterial doppler Left leg SFA stent patent. Nonvisualization of dorsalis pedis and peroneal artery with occlusion of these vessels not excluded given the lack of visualization. 53 x 14 mm complex fluid in the popliteal fossa. CT abdomen pelvis without contrast with no SBO and left lower quadrant anas tomosis with minimal diverticular burden and nonfocal attenuation mesentery possible edema. Admitted to ICU for further care. 09/29: Patient seen and examined in the ICU. Discussed with RN. Chart reviewed 09/30: Patient seen and examined in the ICU. He seems pleasantly confused. Weak and hard of hearing. Hemoglobin at 7.9 today. His pressure was running a little low. We have started some normal saline at 100 cc an hour. Vascular surgery consulted. 10/01: LFTs improving CR down to 1.6, BUN 65, WBC 8.7. Did have some small brown emesis after pills this morning. Feels about the same. He is asking if he can have his bandage taken off his left great toe. 10/02: Hb 9.8. Left great toe and ulcer demarcating. Therapies recommended SNF. He is amenable to this. 10/03: CR down to 1 COVID-19 PCR negative, Hb stable at 9.9. He is amenable to rehab. His friends have come by today to replace his hearing aids and note that his did pass away on 09/17/2021 and have been in contact with his 5 children. (has 5 step-children as well) 10/04: Had some foot pain this morning. No shortness of breath or chest pain. No further GI bleeding at this time. Very weak therapy still recommending SNF on discharge. 10/05/2021 No acute events overnight. Patient seen examined bedside. Resting comfortably. No nausea vomiting episodes. Still on PPI. Pending SNF placement. Patient's chart, labs, images were reviewed and discussed with RN 10/06 Patient evaluated examined at bedside. No major overnight events. Resting in bed when seen. Continue Protonix. No signs of recurrent bleeding. Patient wants to "think about rehab." He is ready for rehab placement should he decide that. Will inform him decision has to be made by tomorrow. Plan of care discussed bedside RN. Vitals/I&O Vitals/I&O: Vital Signs Date Time Temp Pulse Resp B/P (MAP) Pulse Ox O2 Delivery O2 Flow Rate FiO2 10/06/21 12:45 99 Nasal Cannula 2.0 10/06/21 11:00 98.2 75 18 149/58 (88) 98.2 I & O 10/05/21 10/05/21 10/06/21 15:00 23:00 07:00 Intake Total 240 ml 250 ml Balance 240 ml 250 ml Physical Exam General: Alert, Cooperative, No acute distress Heart: Regular rate, Other (2+ femoral pulses bilaterally 1+ left popliteal pulse PT signal is monophasic on the left. There is a strong monophasic left popliteal signal that is easily appreciable.) Lungs: Wheezing Abdomen: Soft, No tenderness Extremities: Other (There is evidence of pallor of the first through third toes and there is an area of cyanosis involving the first metatarsophalangeal joint. There is a small superficial plantar ulceration overlying the left first metatarsophalangeal joint.) Skin: No rashes Comment Review of Relevant I have reviewed the following items emilio (where applicable) has been applied. Justifications for Admission Other Justification JOSE RIOS MD Oct 06, 2021 13:06
[2021-10-06 15:00] VITALS: BP 144/70
[2021-10-06] MEDS: fentaNYL PF VIAL 100 MCG/2 ML VIAL IVP PRN ×2 (16:18→21:23)
[2021-10-06 19:00] VITALS: BP 141/72
[2021-10-06] MEDS: cefTRIAXone IV Push 1 GM VIAL. IVP SCH (19:00)
[2021-10-06] MEDS: traZODone 100 MG TABLET. PO SCH (21:22)
[2021-10-06 23:00] VITALS: BP 149/68
[2021-10-07 03:00] VITALS: BP 131/66
[2021-10-07 07:00] VITALS: BP 153/72
[2021-10-07] MEDS: BUDESONIDE 0.5 MG/2 ML NEBU. NEB SCH ×2 (07:57→20:00)
[2021-10-07] MEDS: ALBUTEROL SULFATE 2.5 MG/3 ML NEBU. NEB SCH ×4 (07:58→20:00)
[2021-10-07] MEDS: NICOTINE 21MG PATCH. TD PRN (09:57)
[2021-10-07] MEDS: SERTRALINE 50 MG TABLET. PO SCH (09:58)
[2021-10-07] MEDS: LACTOBACILLUS RHAMNOSUS GG 1 CAPSULE. PO SCH ×2 (09:58→20:26)
[2021-10-07] MEDS: FLUTICASONE 50MCG/NASAL SPRAY 16GM BOTTLE. NS SCH (09:58)
[2021-10-07] MEDS: MULTIVITAMIN with MINERAL TABLET. PO SCH (09:58)
[2021-10-07] MEDS: ASCORBIC ACID 1,000 MG TABLET PO SCH (09:58)
[2021-10-07] MEDS: PANTOPRAZOLE 40 MG TABLET.DR. PO SCH (09:58)
[2021-10-07 11:00] VITALS: BP 157/61
--- NOTE | 2021-10-07 11:45 | PDOC ---
Date of Service: DATE: 10/07/21 TIME: 11:42 Subjective: Subjective: Wants to know what's wrong with him, why he's still here, where he's going next, and when his leg will be fixed. Objective: Objective: Plans for SNU on DC - plans not finalized yet. Vital Signs: Vital Signs Date Time Temp Pulse Resp B/P (MAP) Pulse Ox O2 Delivery O2 Flow Rate FiO2 10/07/21 08:00 96 Nasal Cannula 3.0 10/07/21 07:00 98.1 79 18 153/72 (99) 98.1 PE: GEN: NAD - up in chair LUNGS: diminished, NC 3L HEART: RRR ABD: S/ND/NT EXTREMITY/SKIN: left great toe purple w/ ulcer, dried blood NEURO/PSYCH: A & O, forgetful A/P: Diarrhea/hematochezia, vomiting - resolved Microcytic anemia - stable (hgb checked 10/05/21), not iron deficient PAD s/p recent stent -- Stable GI-mccurdy. Defer Xarelto to primary/vascular. Poor candidate for endoscopy. Awaiting discharge. Justicifation of Admission Dx: Justifications for Admission: Justification of Admission Dx: Yes CASA RICH Oct 07, 2021 11:45
--- NOTE | 2021-10-07 12:03 | PDOC ---
[facility] PROGRESS NOTE Date of Service DOS: DATE: 10/07/21 TIME: 12:02 Chief Complaint Chief Complaint GI bleed (hemoglobin was down to 4.8 got 4 units) Chronic anticoagulation on Xarelto Recent femoral stent placed in February [facility] COPD Hypertension Arthritis Depression Anxiety GERD Allergic rhinitis Cholecystectomy Hip replacement Continued tobacco abuse Hip repair Hard of hearing Diverticulosis (s/p bowel resection 03/2021) History of Present Illness History of Present Illness Mr Dumont is an 81yo male with PMHx hard of hearing, smoker, COPD, diverticulosis (s/p bowel resection 03/2021), PAD who presents with abdominal pain, nausea, vomiting and GI bleeding. Has had nausea and vomiting and diarrhea with some blood in his stool for the past 24 hours prior to arrival and now with abdominal pain. Went to his primary care doctor's office Dr. Muñoz and was sent via EMS directly to the ED. He notes one bloody bowel movement and now is sharp abdominal pain that is occasionally stabbing. He notes he thought this problem was taken care of when he had colon resection for diverticulosis in March 2021 ([facility]). He notes associated fatigue and shortness of breath. No chest pain. He notes on 09/23/2021 [facility] went to [facility] and had an SFA stent placed and was recently started on Xarelto after this. He notes he has follow-up vascular surgery in 1 week. Patient has history of peripheral artery disease I did recently undergo an femoral stent placement. He does complain also of pain in the left foot due to known PAD. Patient reports he has pending additional therapy or stenting scheduled for next week. Today, he complains of abdominal pain and lower GI bleeding. Denies fever. No chest pain or shortness of breath. Seen in ED on 09/17/2021 [place] [facility] in [place] and CR was 1.4 at that time Hb was 7.5. He was given antibiotics for left great toe cellulitis and instructed to f/u with vascular surgery as scheduled. Here in ED noted with WBC 14.8, Hb 4.8, MCV 71, platelets 596, NA 141, K5.6, BUN 103, CR 3, glucose 92, lactic acid 8.5, calcium 7.8, bilirubin 0.4, AST 63, ALT 38, alkaline phosphatase 82, high-sensitivity troponin is 159, NT proBNP is 1994, albumin 2.5, fecal occult blood positive, INR 1.6. LLE arterial doppler Left leg SFA stent patent. Nonvisualization of dorsalis pedis and peroneal artery with occlusion of these vessels not excluded given the lack of visualization. 53 x 14 mm complex fluid in the popliteal fossa. CT abdomen pelvis without contrast with no SBO and left lower quadrant anas tomosis with minimal diverticular burden and nonfocal attenuation mesentery possible edema. Admitted to ICU for further care. 09/29: Patient seen and examined in the ICU. Discussed with RN. Chart reviewed 09/30: Patient seen and examined in the ICU. He seems pleasantly confused. Weak and hard of hearing. Hemoglobin at 7.9 today. His pressure was running a little low. We have started some normal saline at 100 cc an hour. Vascular surgery consulted. 10/01: LFTs improving CR down to 1.6, BUN 65, WBC 8.7. Did have some small brown emesis after pills this morning. Feels about the same. He is asking if he can have his bandage taken off his left great toe. 10/02: Hb 9.8. Left great toe and ulcer demarcating. Therapies recommended SNF. He is amenable to this. 10/03: CR down to 1 COVID-19 PCR negative, Hb stable at 9.9. He is amenable to rehab. His friends have come by today to replace his hearing aids and note that his did pass away on 09/17/2021 and have been in contact with his 5 children. (has 5 step-children as well) 10/04: Had some foot pain this morning. No shortness of breath or chest pain. No further GI bleeding at this time. Very weak therapy still recommending SNF on discharge. 10/05/2021 No acute events overnight. Patient seen examined bedside. Resting comfortably. No nausea vomiting episodes. Still on PPI. Pending SNF placement. Patient's chart, labs, images were reviewed and discussed with RN 10/06 Patient evaluated examined at bedside. No major overnight events. Resting in bed when seen. Continue Protonix. No signs of recurrent bleeding. Patient wants to "think about rehab." He is ready for rehab placement should he decide that. Will inform him decision has to be made by tomorrow. Plan of care discussed bedside RN. 10/07 Patient evaluate examined at bedside. No major overnight events. Globin stable resume home Xarelto today. He is agreeable to SNF placement at this point. Just waiting on this can discharge whenever accepted. Vitals/I&O Vitals/I&O: Vital Signs Date Time Temp Pulse Resp B/P (MAP) Pulse Ox O2 Delivery O2 Flow Rate FiO2 10/07/21 11:00 97.8 71 20 157/61 (93) 96 Nasal Cannula 2.0 97.8 I & O 10/06/21 10/06/21 10/07/21 15:00 23:00 07:00 Intake Total 250 ml Balance 250 ml Physical Exam General: Alert, Cooperative, No acute distress Heart: Regular rate, Other (2+ femoral pulses bilaterally 1+ left popliteal pulse PT signal is monophasic on the left. There is a strong monophasic left popliteal signal that is easily appreciable.) Lungs: Wheezing Abdomen: Soft, No tenderness Extremities: Other (There is evidence of pallor of the first through third toes and there is an area of cyanosis involving the first metatarsophalangeal joint. There is a small superficial plantar ulceration overlying the left first metatarsophalangeal joint.) Skin: No rashes Comment Review of Relevant I have reviewed the following items emilio (where applicable) has been applied. Justifications for Admission Other Justification JOSE RIOS MD Oct 07, 2021 12:03
[2021-10-07] MEDS: RIVAROXABAN 10 MG TABLET. PO SCH ×2 (12:36→20:27)
[2021-10-07 15:00] VITALS: BP 146/62
--- NOTE | 2021-10-07 18:34 | NUR ---
Patient received a bed change, gown change, bed bath, and hair wash by this RN and Marina SIGALA.
[2021-10-07 19:00] VITALS: BP 139/71
[2021-10-07] MEDS: traZODone 100 MG TABLET. PO SCH (20:26)
[2021-10-07] MEDS: cefTRIAXone IV Push 1 GM VIAL. IVP SCH (20:28)
[2021-10-07 23:00] VITALS: BP 130/62
[2021-10-08 03:00] VITALS: BP 146/69
[2021-10-08 07:00] VITALS: BP 143/75
[2021-10-08] MEDS: ALBUTEROL SULFATE 2.5 MG/3 ML NEBU. NEB SCH ×2 (08:00→12:00)
[2021-10-08] MEDS: BUDESONIDE 0.5 MG/2 ML NEBU. NEB SCH (08:00)
[2021-10-08] MEDS: FLUTICASONE 50MCG/NASAL SPRAY 16GM BOTTLE. NS SCH (09:00)
[2021-10-08] MEDS: SERTRALINE 50 MG TABLET. PO SCH (09:38)
[2021-10-08] MEDS: MULTIVITAMIN with MINERAL TABLET. PO SCH (09:40)
[2021-10-08] MEDS: PANTOPRAZOLE 40 MG TABLET.DR. PO SCH (09:40)
[2021-10-08] MEDS: LACTOBACILLUS RHAMNOSUS GG 1 CAPSULE. PO SCH (09:40)
[2021-10-08] MEDS: NICOTINE 21MG PATCH. TD PRN (09:40)
[2021-10-08] MEDS: ASCORBIC ACID 1,000 MG TABLET PO SCH (09:40)
[2021-10-08] MEDS: RIVAROXABAN 10 MG TABLET. PO SCH (09:41)
--- NOTE | 2021-10-08 09:56 | PDOC ---
Date of Service: DATE: 10/08/21 TIME: 09:53 Subjective: Subjective: No GI complaints. Foot hurts. Wants to know the plan. Objective: Objective: Reviewed notes - DC today? Xarelto restarted yesterday. Vital Signs: Vital Signs Date Time Temp Pulse Resp B/P (MAP) Pulse Ox O2 Delivery O2 Flow Rate FiO2 10/08/21 08:22 93 Nasal Cannula 2.0 10/08/21 07:00 98.0 84 16 143/75 (97) 98.0 PE: GEN: NAD LUNGS: diminished HEART: RRR ABD: S/ND/NT NEURO/PSYCH: A & O 3, [place] A/P: Diarrhea/hematochezia, vomiting - resolved Microcytic anemia - stable (Hgb checked 10/05/21), not iron deficient (after transfusions) PAD s/p recent stent on Xarelto -- Stable GI-mccurdy, poor endoscopy candidate. DC per primary. Justicifation of Admission Dx: Justifications for Admission: Justification of Admission Dx: Yes CASA RICH Oct 08, 2021 09:55
[2021-10-08] MEDS ORDERED: RIVA10TA PO (10:07)
--- NOTE | 2021-10-08 10:09 | SNU/HH DC ---
DISCHARGE ORDERS DISCHARGE INFORMATION: DISCHARGE DATE: Oct 08, 2021 FINAL DIAGNOSIS upper gi bleed CONDITION ON DISCHARGE: Stable CODE STATUS: Code Status: Full POST DISCHARGE ORDERS: ACTIVITY ORDERS: Activity as tolerated WEIGHT BEARING STATUS: As tolerated BATHING ORDERS: Shower-keep dressing dry DIET AFTER DISCHARGE: Regular WOUND/INCISION CARE: Keep wound/cast CDI TREATMENT/EQUIPMENT ORDERS: ADAPTIVE EQUIPMENT NEEDED: Walker Physical Therapy For: Evalulation/Treatment Occupational Therapy For: Evaluation/Treatment DISCHARGE MEDICATIONS: Home Meds Active Scripts Rivaroxaban (XARELTO) 10 Mg Tablet, 2.5 MG PO BID for hx dvt for 30 Days, #15 TAB Prov:JOSE RIOS MD 10/08/21 Pantoprazole Sodium (PANTOPRAZOLE SODIUM ) 40 Mg Tablet.dr, 40 MG PO DAILYAC for PUD for 30 Days, #30 TAB.SR Prov:JACI HENSON MD 04/06/20 Reported Medications Trazodone Hcl (TRAZODONE HCL) 100 Mg Tablet, 100 MG PO HS for sleep, TAB 06/06/20 Lisinopril/Hydrochlorothiazide (LISINOPRIL-HCTZ 20-12.5 MG TAB) 1 Each Tablet, 1 TAB PO DAILY for high blood pressure 04/04/20 Fluticasone Propionate (FLUTICASONE PROPIONATE NASAL SPRAY) 16 Gm [place].susp, 1 SPRAY BAL DAILY for allergies 04/04/20 Sertraline Hcl (SERTRALINE HCL) 100 Mg Tablet, 1.5 TAB PO DAILY for [id number], TAB 0 Refills 04/18/16 Budesonide/Formoterol Fumarate (SYMBICORT 160-4.5 MCG INHALER) 10.2 Gm Hfa.aer.ad, 2 PUFF IH BID, #10.6 GM 3 Refills 04/16/16 Discontinued Reported Medications Celecoxib (CELEBREX) 200 Mg Capsule, 200 MG PO BID for arthritis for 30 Days, CAP 0 Refills 06/06/20 JOSE RIOS MD Oct 08, 2021 10:09
--- NOTE | 2021-10-08 10:13 | PDOC3 ---
[facility]-Discharge Summary Date of Admission: Date of Admission: Sep 28, 2021 Date of Discharge: Date of Discharge: Oct 08, 2021 Admission Diagnosis: Problems: (1) GI bleed Consults: Consults: GI Hospital Course: Hospital Course: Chief Complaint GI bleed (hemoglobin was down to 4.8 got 4 units) Chronic anticoagulation on Xarelto Recent femoral stent placed in February [facility] COPD Hypertension Arthritis Depression Anxiety GERD Allergic rhinitis Cholecystectomy Hip replacement Continued tobacco abuse Hip repair Hard of hearing Diverticulosis (s/p bowel resection 03/2021) History of Present Illness History of Present Illness Mr Dumont is an 81yo male with PMHx hard of hearing, smoker, COPD, diverticulosis (s/p bowel resection 03/2021), PAD who presents with abdominal pain, nausea, vomiting and GI bleeding. Has had nausea and vomiting and diarrhea with some blood in his stool for the past 24 hours prior to arrival and now with abdominal pain. Went to his primary care doctor's office Dr. Muñoz and was sent via EMS directly to the ED. He notes one bloody bowel movement and now is sharp abdominal pain that is occasionally stabbing. He notes he thought this problem was taken care of when he had colon resection for diverticulosis in March 2021 ([facility]). He notes associated fatigue and shortness of breath. No chest pain. He notes on 09/23/2021 he went to [facility] and had an SFA stent placed and was recently started on Xarelto after this. He notes he has follow-up vascular surgery in 1 week. Patient has history of peripheral artery disease I did recently undergo an femoral stent placement. He does complain also of pain in the left foot due to known PAD. Patient reports he has pending additional therapy or stenting scheduled for next week. Today, he complains of abdominal pain and lower GI bleeding. Denies fever. No chest pain or shortness of breath. Seen in ED on 09/17/2021 [place] [facility] in [place] and CR was 1.4 at that time Hb was 7.5. He was given antibiotics for left great toe cellulitis and instructed to f/u with vascular surgery as scheduled. Here in ED noted with WBC 14.8, Hb 4.8, MCV 71, platelets 596, NA 141, K5.6, BUN 103, CR 3, glucose 92, lactic acid 8.5, calcium 7.8, bilirubin 0.4, AST 63, ALT 38, alkaline phosphatase 82, high-sensitivity troponin is 159, NT proBNP is 1994, albumin 2.5, fecal occult blood positive, INR 1.6. LLE arterial doppler Left leg SFA stent patent. Nonvisualization of dorsalis pedis and peroneal artery with occlusion of these vessels not excluded given the lack of visualization. 53 x 14 mm complex fluid in the popliteal fossa. CT abdomen pelvis without contrast with no SBO and left lower quadrant anastomosis with minimal diverticular burden and nonfocal attenuation mesentery possible edema. Admitted to ICU for further care. 09/29: Patient seen and examined in the ICU. Discussed with RN. Chart reviewed 09/30: Patient seen and examined in the ICU. He seems pleasantly confused. Weak and hard of hearing. Hemoglobin at 7.9 today. His pressure was running a little low. We have started some normal saline at 100 cc an hour. Vascular surgery consulted. 10/01: LFTs improving CR down to 1.6, BUN 65, WBC 8.7. Did have some small brown emesis after pills this morning. Feels about the same. He is asking if he can have his bandage taken off his left great toe. 10/02: Hb 9.8. Left great toe and ulcer demarcating. Therapies recommended SNF. He is amenable to this. 10/03: CR down to 1 COVID-19 PCR negative, Hb stable at 9.9. He is amenable to rehab. His friends have come by today to replace his hearing aids and note that his did pass away on 09/17/2021 and have been in contact with his 5 children. (has 5 step-children as well) 10/04: Had some foot pain this morning. No shortness of breath or chest pain. No further GI bleeding at this time. Very weak therapy still recommending SNF on discharge. 10/05/2021 No acute events overnight. Patient seen examined bedside. Resting comfortably. No nausea vomiting episodes. Still on PPI. Pending SNF placement. Patient's chart, labs, images were reviewed and discussed with RN 10/06 Patient evaluated examined at bedside. No major overnight events. Resting in bed when seen. Continue Protonix. No signs of recurrent bleeding. Patient wants to "think about rehab." He is ready for rehab placement should he decide that. Will inform him decision has to be made by tomorrow. Plan of care discussed bedside RN. 10/07 Patient evaluate examined at bedside. No major overnight events. Globin stable resume home Xarelto today. He is agreeable to SNF placement at this point. Just waiting on this can discharge whenever accepted. 10/08 Patient evaluate examined at bedside. No major overnight events. Plan for discharge to facility today. Greater than 30 minutes spent on discharge. 18 minutes advance care planning Disposition: Disposition/Orders: D/C to Another Facility Activity: Activity: Resume previous activity Diet: Diet: Regular Medications: Home Meds Active Scripts Rivaroxaban (XARELTO) 10 Mg Tablet, 2.5 MG PO BID for hx dvt for 30 Days, #15 TAB Prov:JOSE ROIS MD 10/08/21 Pantoprazole Sodium (PANTOPRAZOLE SODIUM ) 40 Mg Tablet.dr, 40 MG PO DAILYAC for PUD for 30 Days, #30 TAB.SR Prov:JACI HENSON MD 04/06/20 Reported Medications Trazodone Hcl (TRAZODONE HCL) 100 Mg Tablet, 100 MG PO HS for sleep, TAB 06/06/20 Lisinopril/Hydrochlorothiazide (LISINOPRIL-HCTZ 20-12.5 MG TAB) 1 Each Tablet, 1 TAB PO DAILY for high blood pressure 04/04/20 Fluticasone Propionate (FLUTICASONE PROPIONATE NASAL SPRAY) 16 Gm [place].susp, 1 SPRAY BAL DAILY for allergies 04/04/20 Sertraline Hcl (SERTRALINE HCL) 100 Mg Tablet, 1.5 TAB PO DAILY for [id number], TAB 0 Refills 04/18/16 Budesonide/Formoterol Fumarate (SYMBICORT 160-4.5 MCG INHALER) 10.2 Gm Hfa.aer.ad, 2 PUFF IH BID, #10.6 GM 3 Refills 04/16/16 Discontinued Reported Medications Celecoxib (CELEBREX) 200 Mg Capsule, 200 MG PO BID for arthritis for 30 Days, CAP 0 Refills 06/06/20 Scheduled Budesonide/Formoterol Fumarate (Symbicort 160-4.5 Mcg Inhaler), 2 PUFF IH BID, (Reported) Fluticasone Propionate (Fluticasone Propionate Nasal [place]), 1 SPRAY BAL DAILY, (Reported) Lisinopril/Hydrochlorothiazide (Lisinopril-Hctz 20-12.5 Mg Tab), 1 TAB PO DAILY, (Reported) Pantoprazole Sodium (Pantoprazole Sodium ), 40 MG PO DAILYAC Rivaroxaban (Xarelto), 2.5 MG PO BID Sertraline Hcl (Sertraline Hcl), 1.5 TAB PO DAILY, (Reported) Trazodone Hcl (Trazodone Hcl), 100 MG PO HS, (Reported) Discontinued Medications Celecoxib (Celebrex), 200 MG PO BID, (Reported) Justicifation of Admission Dx: Justifications for Admission: Justification of Admission Dx: Yes JOSE RIOS MD Oct 08, 2021 10:12
[2021-10-08 11:00] VITALS: BP 130/58
[2021-10-08 15:00] VITALS: BP 140/71
--- NOTE | 2021-10-08 15:55 | NUR ---
Patient escorted to [facility] by transportation. IV and telemonitor discontinued by Sydnee SIGALA. Report given to Beryl LEE. 2LNC and all belongings.
== END 2021-10-08 15:50 | DRG 377 ==
LOC: ER 16:21 → 1 WEST ICU 19:10 → 5 SOUTH 09-30 16:50
PROVIDERS: ADMIT Internal Medicine; ATTEND Internal Medicine
PROC: 30233N1 Transfusion of Nonautologous Red Blood Cells into Peripheral Vein, Percutaneous Approach (ICD-10-PCS; principal; 2021-09-28)
DX: K57.31 Diverticulosis of large intestine without perforation or abscess with bleeding (principal); N17.0 Acute kidney failure with tubular necrosis; Z20.822 Contact with and (suspected) exposure to COVID-19; D50.9 Iron deficiency anemia, unspecified; E87.6 Hypokalemia; F03.90 Unspecified dementia, unspecified severity, without behavioral disturbance, psychotic disturbance, mood disturbance, and anxiety; F17.210 Nicotine dependence, cigarettes, uncomplicated; F32.A Depression, unspecified; F41.9 Anxiety disorder, unspecified; I10 Essential (primary) hypertension; J30.9 Allergic rhinitis, unspecified; J44.9 Chronic obstructive pulmonary disease, unspecified; K21.9 Gastro-esophageal reflux disease without esophagitis; L97.529 Non-pressure chronic ulcer of other part of left foot with unspecified severity; M19.90 Unspecified osteoarthritis, unspecified site; M43.17 Spondylolisthesis, lumbosacral region; N28.1 Cyst of kidney, acquired; Z79.01 Long term (current) use of anticoagulants; Z82.49 Family history of ischemic heart disease and other diseases of the circulatory system; Z96.642 Presence of left artificial hip joint; I70.222 Atherosclerosis of native arteries of extremities with rest pain, left leg; Z90.49 Acquired absence of other specified parts of digestive tract; Z71.6 Tobacco abuse counseling
CPT/HCPCS: 36415; 36430; 74176; 80048; 80053; 82274; 82550; 82607; 83540; 83550; 83605; 83880; 84484; 85007; 85014; 85018; 85025; 85027; 85610; 86850; 86900; 86901; 86920; 87505; 93923; 94640; 94760; 96361; 96374; 96375; C9113; J0696; J1170; J2405; J3010; J3490; J7030; J7060; P9016; U0003; 97110-GP; 97530-GP; 97535-GO; 99285-25; G0378; J7613; J7626